=== PATIENT | female | born 1945 | race Caucasian/White ===

== ENCOUNTER 2016-09-18 12:41 | Inpatient (IN) | payer MEDICARE ==
[~2016-09-18] VITALS: Ht 157.5 cm; Wt 88.9 kg
[~2016-09-18 12:41] MED LIST: CIPROFLOXACIN500 MG PO; DECONGESTANT30 MG PO; FENOFIBRATE160 MG PO; FLAGYL500 MG PO; MIRALAX17 GM PO; MOTRIN400 MG PO; NICOTINE PATCH1 EAC1 TD; NORCO 5-325 TA1 EACH PO; ORALONE5 GM DT; PROAIR HFA8.5 GM INH; VITAMIN D50000 UNIT PO; ZOLPIDEM TARTRA10 MG PO
[2016-09-26] MEDS ORDERED: METAMUCIL PACK3.4 GM PO (15:12)
[2016-10-03] MEDS ORDERED: ESZOPICLONE3 MG PO (12:13)
[2016-10-03] MEDS ORDERED: MIRALAX17 GM PO (12:13)
[2016-10-03] MEDS ORDERED: ALLERGY4 MG PO (12:14)
[2016-10-04] MEDS ORDERED: FLONASE ALLERG9.9 ML INH (06:01)
--- NOTE | 2016-10-04 10:15 | NUR ---
MET WITH PT'S DAUGHTER DANIELLE. SHE SEEMED COMFORTABLE, PATIENTLY WAITING. SHE HAD NO QUESTIONS, MENTIONED THAT SHE IS TO START RN PROGRAM THIS FALL. WILL CONTINUE TO FOLLOW
--- NOTE | 2016-10-04 10:30 | NUR ---
PT TO FLOOR. SPINAL LEVEL L1. LEWIS IN PLACE DRAINING CLEAR YELLOW URINE. VAG PACK IN PLACE WITH HERBERT PAD. SCANT DRAINAGE NOTED. CONT PULSE OX PLACED. PT AWAKE AND ALERT. ORIENTED TO ROOM.
--- NOTE | 2016-10-04 11:16 | NUR ---
10/04/16 1116 Abi Ellis 0931 PATIENT ARRIVES TO PACU UNRESPONSIVE, ORAL AND NASAL AIRWAYS IN PLACE. MASK AT 10 LITERS. 0940 PATIENT MOVING ARMS, BUT NOT PURPOSEFULLY, DOES NOT OPEN EYES TO VERBAL OR TACTILE STIMULI. 0948 OXYGEN DECREASED TO 6 LITERS, ORAL AIRWAY REMOVED. 0949 PATIENT SHAKES HEAD NO TO NAUSEA OR PAINFUL STIMULI.
--- NOTE | 2016-10-04 11:35 | NUR ---
PT AWAKE AND ALERT IN BED. SPINAL RESOLVING. AT L3 AT THIS TIME. PT DENIES PAIN. MINIMAL DRAINAGE ON HERBERT PAD. LEWIS DRAINING CLEAR YELLOW URINE. CONT PULSE OX IN PLACE. O2 ON AT 2 L. CALL LIGHT IN REACH. PT DENIES NEEDS.
--- NOTE | 2016-10-04 14:02 | NUR ---
PT SITTING UP IN BED EATING FRUIT AND ICED TEA. DENIES PAIN, NAUSEA. SPINAL RESOLVED. SCANT DRAINAGE NOTED ON HERBERT PAD. VAG PACK IN PLACE. CALL LIGHT IN REACH.
--- NOTE | 2016-10-04 14:29 | NUR ---
PATIENT AWAKE RESTING IN BED. STILL HAS OXYGEN ON. SHE STATED THAT SHE DID NOT NEED ANYTHING. I GOT HER A COOL CLOTH SHE WAS WARM. CALL LIGHT IS IN REACH.
--- NOTE | 2016-10-04 17:03 | NUR ---
RN TO ROOM TO CHECK ON PT. PT AWAKE AND ALERT TALKING WITH FAMILY. O2 OFF. SATS 84% PER CONT PULSE OX. PT REMINDED SHE NEEDS O2. COMPLAINS OF ITCHY NOSE, SO PULLS OUT NC. RN ENCOURAGES PT TO TRY OXYMASK. PT REFUSES. MD TO ROOM. MD TALKS WITH PT REGARDING NEED TO HAVE O2 ON, SO NEEDS TO USE OXYMASK IF NOT ABLE TO TOLERATE NC. PT TOLERATING SITTING UP WELL. FAMILY AT BEDSIDE. CALL LIGHT IN REACH.
--- NOTE | 2016-10-04 17:23 | NUR ---
PT TO FLOOR FROM SURGERY THIS AM. SPINAL RESOLVED. PT CONTINUES TO DENY PAIN. COPMLAINS OF ITCHY NOSE. PULLS NC OUT CONTINUOUSLY. SATS 84%. WITHOUT OXYGEN REFUSES OXYMASK AT THIS TIME. AWARE. TALKED WITH PT REGARDING NEED FOR O2. LEWIS IN PLACE DRAINING CLEAR YELLOW URINE. VAG PACKING IN PLACE WITH HERBERT PAD. SMALL AMOUNT OF DRAINAGE NOTED ON PAD. URINE OUTPUT LOW. AWARE. TO CONTINUE TO MONITOR.
--- NOTE | 2016-10-04 20:43 | NUR ---
PT UP AND AMBULATING IN HALLS, STANDBY ASSIST, TOLERATING WELL. WALKED THE LEGNTH OF THE MS ABEBE AND THEN BACK TO ROOM. NO DIZZINESS, STEADY ON FEET, NO NAUSEA.
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
--- NOTE | 2016-10-05 00:15 | NUR ---
PT AWAKE IN BED, REPORTS NOT BEING ABLE TO SLEEP DUE TO "ALL THESE HOSPITAL NOISES," "THIS ROOM IS THE NOISEST HOSPITAL ROOM JOANNA EVER STAYED IN." PT REPORTS THE "CIRCULATION SYSTEM, BED, AND IV PUMP," ARE KEEPING HER AWAKE. SUGGESTED TURNING THE TV ON TO DROWN OUT THE OTHER NOISES, PT AGREED. NO OTHER COMPLAINTS AT THIS TIME. PT PLEASENT. CONTINUES TO DENY PAIN.
--- NOTE | 2016-10-05 02:48 | NUR ---
PT RESTING QUIETLY.
--- NOTE | 2016-10-05 04:03 | NUR ---
PT COMPLAINED OF FEELING "STUFFED UP," AND ALSO PRURITIS. PT HAS NO REDNESS OR HIVES ON HER SKIN. LUNGS SOUND CLEAR. O2 SAT 95% ON RA. VITALS TAKEN AND ARE STABLE AT THIS TIME. PT REPORTS THAT SHE DOES HAVE "ALLERGIES," AND THAT SHE TAKES "ALLERGY MEDICINES TWICE A DAY." GAVE BENEDRYL. WILL CONTINUE TO MONITOR.
--- NOTE | 2016-10-05 05:22 | NUR ---
PT UP IN CHAIR. CONTINUES TO DENY PAIN AT THIS TIME. DC'D JOSHUA, WNL AND PT TOLERATED WELL.
--- NOTE | 2016-10-05 05:56 | NUR ---
PT DID VERY WELL OVERNIGHT. AMBULATED FULL LENGTH OF MS ABEBE AND THEN BACK TO ROOM. HAS DENIES PAIN ALL NIGHT. SPINAL IS UP AT 0757 THIS MORNING. JOSHUA BURGER'Jacki THIS MORNING, PT EDUCATED ON VOIDING TRIAL TODAY, VERBALIZES UNDERSTANDING. HERBERT PAD HAS HAD SCANT AMOUNT OF SANGUANOUS DRAINAGE. PT RECIEVED BENEDRYL X1 FOR PRURITIS, WHICH HELPED WITH HER ICHING. VITALS STABLE. RIGHT ARM RESTRICTED. TOLERATING REGULAR DIET WELL.
--- NOTE | 2016-10-05 07:59 | NUR ---
BEDSEIDE REPORT RECEIVED FROM SUSSY. PATIENT RESTING IN BED. NO CAOMPLAINTS AT THIS TIME. PATIENT EDUCATED ABOUT VOID TRIAL AFTER LEWIS WAS D/C. NO APPARENT DISTRESS NOTED.
--- NOTE | 2016-10-05 09:39 | NUR ---
PT VOIDED 100ML, WITH 5ML SHOWING ON PVR. NO COMPLAINTS OF PAIN.
--- NOTE | 2016-10-05 11:41 | NUR ---
PT C/O ITCHINESS. PRN IV BENADRYL GIVEN. PT HAS LUNCH, AND IS EATING. VOIDED FOR 300ML, PVR FOR 72ML.
--- NOTE | 2016-10-05 11:54 | NUR ---
SPOKE WITH PATIENT AND GUSTAVO IN ROOM. PATIENT ORIENTED, IS INDEPENDENT AT HOME ALONE. HAS STEPS WITH RAIL INTO HOUSE. NO ISSUES AMBULATING IN ROOM. GUSTAVO WILL BE STAYING THE WEEK WITH HER AND DAUGHTER IS CLOSE BY ALSO. SHE KNOWS NO BARRIERS TO RETURNING HOME AT THIS TIME.
--- NOTE | 2016-10-05 12:01 | NUR ---
PT FRIENDLY, WELCOMED ME INTO HER ROOM. SHE IS ALERT, ORIENTED AND STATED THAT SHE THINKS THAT SHE IS "DOING VERY WELL". POSSIBLE DC TODAY. PT HAD A VISITOR, AND MENTIONED THAT PAIN RIGHT NOW IN NOT AN ISSUE. PT DECLINED PRAYER, BUT THANKED ME FOR VISITING. WILL FOLLOW NEEDED
[2016-10-05] MEDS ORDERED: NORCO 5-325 TA1 EACH PO ×2 (13:06→13:22)
[2016-10-05] MEDS ORDERED: MOTRIN IB200 MG PO (13:08)
[2016-10-05] MEDS ORDERED: IBUPROFEN800 MG PO (13:22)
[2016-10-05] MEDS ORDERED: KONDREMUL2.5 ML/5 M PO (13:23)
[2016-10-05] MEDS ORDERED: SENNA-S TABLET1 EACH PO (13:23)
--- NOTE | 2016-10-05 13:53 | NUR ---
PT DISCHARGE VITALS AND DISCHARGE TEACHING COMPLETE. TEACHING RE: MEDICATION, ACTIVITY, PROCEDURE DONE. PT VERBALIZED UNDERSTANDING.
--- NOTE | 2016-10-05 14:10 | NUR ---
MED REC COMPLETE--PER PATIENT
== END 2016-10-05 14:10 | disposition home or self-care (01) | DRG 748 ==
LOC: DSVR 10-04 05:50 → MS 10-04 06:45
PROVIDERS: ADMIT Obstetrics & Gynecology
PROC: 0TSD0ZZ Reposition Urethra, Open Approach (ICD-10-PCS; 2016-10-04)
PROC: 0TJB8ZZ Inspection of Bladder, Via Natural or Artificial Opening Endoscopic (ICD-10-PCS; 2016-10-04)
PROC: 0JUC07Z Supplement of Pelvic Region Subcutaneous Tissue and Fascia with Autologous Tissue Substitute, Open Approach (ICD-10-PCS; principal; 2016-10-04 06:45)
PROC: 0JUC0KZ Supplement of Pelvic Region Subcutaneous Tissue and Fascia with Nonautologous Tissue Substitute, Open Approach (ICD-10-PCS; 2016-10-04 06:45)
DX: N81.11 Cystocele, midline (principal); N81.6 Rectocele; N39.3 Stress incontinence (female) (male); E78.5 Hyperlipidemia, unspecified; E66.01 Morbid (severe) obesity due to excess calories; D64.9 Anemia, unspecified; L29.9 Pruritus, unspecified; Z88.8 Allergy status to other drugs, medicaments and biological substances; Z88.1 Allergy status to other antibiotic agents; Z68.35 Body mass index [BMI] 35.0-35.9, adult; Z87.891 Personal history of nicotine dependence; Z85.3 Personal history of malignant neoplasm of breast; Z79.1 Long term (current) use of non-steroidal anti-inflammatories (NSAID); Z79.899 Other long term (current) drug therapy
CPT/HCPCS: 00860; 36415; 51798; 80048; 85025; C1762; C1771; C2631; J0690; J1100; J1200; J1644; J1885; J2250; J2270; J2274; J2300; J2405; J2704; J2765; J3010; J7120

== ENCOUNTER 2017-01-05 06:45 | Day surgery (SDC) | payer MEDICARE ==
[~2017-01-05] VITALS: Ht 157.5 cm; Wt 88.9 kg
[~2017-01-05 06:45] MED LIST changes: +ALLERGY4 MG PO; +ESZOPICLONE3 MG PO; +FLONASE ALLERG9.9 ML INH; +IBUPROFEN800 MG PO; +KONDREMUL2.5 ML/5 M PO; +METAMUCIL PACK3.4 GM PO; +MOTRIN IB200 MG PO; +SENNA-S TABLET1 EACH PO
--- NOTE | 2017-01-05 11:48 | NUR ---
[facility]17 [facility] REMOV[facility]. PT CONTINUES TO DENIE ANY PAIN.
--- NOTE | 2017-01-05 14:26 | NUR ---
PT NORISATING, APPROPRIATELY DEALING WITH EMERGENCY SURGERY THAT HAS BUMPED HER BACK. I FOUND HER TO BE PLEASANT, ALERT AND ORIENTED. SHE REQUESTED PRAYER, WILL FOLLOW NEEDED
--- NOTE | 2017-01-14 20:42 | OR ---
[facility] [address] [place], [place] [address] Signed DATE OF PROCEDURE: 01/05/17 PREOPERATIVE DIAGNOSIS: Thickened endometrial stripe. POSTOPERATIVE DIAGNOSIS Thickened endometrial stripe with endometrial polyp. PROCEDURE: Hysteroscopy, D and C. ANESTHESIA: MAC. ESTIMATED BLOOD LOSS: Minimal. DRAINS: None. INDICATIONS AND FINDINGS The patient is a 71-year-old female, 3, para 3, who has been having no bleeding, but during the course of a workup for an abdominal wall hernia she was found to have a thickened endometrial stripe. EMB was not possible in the office. Because of the thickened stripe, it was felt that further evaluation was necessary. At the time of surgery, exam under anesthesia revealed a normal-size uterus. The cavity sounded to 8 cm. The cavity was completely atrophic except for a large single polyp. DESCRIPTION OF PROCEDURE The patient was prepped and draped in the dorsal lithotomy position. A weighted speculum was placed. The anterior lip of the cervix was visualized and grasped with a single-tooth tenaculum. The cavity was then sounded to 8 cm. The endocervical canal was then dilated to an 8 dilator. The MyoSure device was placed with saline as the medium. The cavity was evaluated and the polyp identified. The MyoSure LITE was then introduced and the polyp mostly excised; however, at that point, the MyoSure LIT E began malfunctioning and the instrument was replaced and the remainder of the polyp removed. The rest of the cavity was completely atrophic. Following this, the procedure was terminated. The tenaculum was removed and there was no evidence of ongoing bleeding from the tenaculum site. The speculum was then removed. The patient was taken to the recovery room in good condition. Sofiya Meade MD Electronically Signed By: SOFIYA MEADE MD 01/14/172 PATIENT NAME: DANA CUELLAR OPERATIVE REPORT DATE OF : 47 PHYSICIAN: SOFIYA MEADE MD REPORT #: [id number] REPORT IS CONFIDENTIAL AND NOT TO BE RELEASED WITHOUT AUTHORIZATION [facility] [address] [place] [address] [place], [place] [address] Signed ELAINE/Wagner /[id number] cc: MD Corey Arellano MD Electronically Signed By: SOFIYA MEADE MD 01/14/172041 PATIENT NAME: DANA CUELLAR INOCENTE OPERATIVE REPORT DATE OF : 47 PHYSICIAN: SOFIYA MEADE MD REPORT #: [id number] REPORT IS CONFIDENTIAL AND NOT TO BE RELEASED WITHOUT AUTHORIZATION
== END 2017-01-05 12:18 | disposition home or self-care (01) ==
LOC: DS 06:45
PROVIDERS: Obstetrics & Gynecology
PROC: 0UDB8ZX Extraction of Endometrium, Via Natural or Artificial Opening Endoscopic, Diagnostic (ICD-10-PCS; principal; 2017-01-05 08:15)
DX: N84.0 Polyp of corpus uteri (principal); G47.33 Obstructive sleep apnea (adult) (pediatric); E78.5 Hyperlipidemia, unspecified; K21.9 Gastro-esophageal reflux disease without esophagitis; E66.9 Obesity, unspecified; Z68.35 Body mass index [BMI] 35.0-35.9, adult; Z90.49 Acquired absence of other specified parts of digestive tract; Z85.3 Personal history of malignant neoplasm of breast; Z90.11 Acquired absence of right breast and nipple; Z87.891 Personal history of nicotine dependence; Z98.890 Other specified postprocedural states; Z88.1 Allergy status to other antibiotic agents; Z79.899 Other long term (current) drug therapy
CPT/HCPCS: 00952; 88305; J1100; J1885; J2250; J2405; J2704; J2765; J3010; J7120

== ENCOUNTER 2017-06-05 10:23 | Observation (INO) | payer MEDICARE ==
[~2017-06-05] VITALS: Ht 157.5 cm; Wt 87.5 kg
[~2017-06-05 10:23] MED LIST changes: -ESZOPICLONE3 MG PO; -FENOFIBRATE160 MG PO
[2017-06-06] MEDS ORDERED: PROAIR HFA8.5 GM INH (15:32)
--- NOTE | 2017-06-13 11:29 | NUR ---
06/13/17 1129 Yola Jovel 1120 PT ARRIVED IN PACU VERY SLEEPY. ICE TO ABD. LEWIS CATHETER IN PLACE ON ARRIVAL.
--- NOTE | 2017-06-13 12:50 | NUR ---
PT TO FLOOR VIA STRETCHER WITH SENAIT GONZALEZ. PT AWAKE AND SITTING UP IN BED. DENIES PAIN OR NAUSEA. VS STABLE. EATING CRACKERS AND SIPPING ON ICE WATER. ADVISED TO GO SLOW. IVF AND PULSE OX HOOKED UP. LEWIS DRAINING LIGHT YELLOW URINE.
--- NOTE | 2017-06-13 13:49 | NUR ---
PATIENT RELAXING IN BED, DAUGHTER IN ROOM. VITALS DONE. PATIENT IS COLD, REFUSED WARM BLANKET-TURNED HEAT UP. CALL LIGHT IN REACH.
--- NOTE | 2017-06-13 14:00 | NUR ---
PT IN BED, DOING WELL. ADMINISTERED PRN PAIN MEDICATION FOR 4/10 PAIN. WILL TRY AMBULATING WHEN IT KICKS IN. DRESSING CDI. VS STABLE. TALKED WITH DAUGHTER AND PT FOR AWHILE, VERY PLEASANT.
--- NOTE | 2017-06-13 15:15 | NUR ---
PATIENT 1 PERSON ASSIST WALKING IN ROOM WITH SENAIT REYES. PATIENT SITTING ON EDGE OF BED FOR CATH REMOVAL. ICE PACK REFILLED AND EXTRA PILLOW GIVEN FOR BEHIND BACK. CALL LIGHT IN REACH.
--- NOTE | 2017-06-13 15:59 | NUR ---
WALKED PT AROUND IN ROOM. REMOVED LEWIS. PT TRIED TO PEE SHE STATED SHE FELT THE URGE. WAS UNABLE. PT BACK TO BED WITH MINIMAL PAIN.
--- NOTE | 2017-06-13 18:09 | NUR ---
PT SITTING UP IN BED EATING DINNER. STATES SHE FEELS REALLY GOOD RIGHT NOW. DENIES NAUSEA. PAIN WELL CONTROLLED. WILL GET UP TO TRY PEEING AFTER DINNER.
--- NOTE | 2017-06-13 18:38 | NUR ---
PT DOING WELL AFTER SURGERY. DRESSING CDI. LEWIS REMOVED AND URINATING WELL. PAIN WELL CONTROLLED WITH MINIMAL NORCO. ONE DOSE GIVEN. D5LR @ 75. ATE DINNER, NO NAUSEA.
--- NOTE | 2017-06-13 20:54 | NUR ---
PT LAYING IN BED AWAKE, WATCHING TV WHEN ENTERING ROOM. RATES PAIN AT 0/10 WHEN LAYING STILL, BUT ABOUT A 7-8/10 WHEN MOVING AROUND, GAVE NORCO FOR PAIN. GAVE FRESH ICE WATER. NEW ICE PACK. DRESSING TO ABD IS CLEAN DRY AND INTACT. PT HAS NO COMPLAINTS AT THIS TIME. NO NAUSEA. CALL LIGHT IN REACH.
--- NOTE | 2017-06-13 21:00 | NUR ---
TOOK PT TO BR AND DID VITALS
--- NOTE | 2017-06-13 22:41 | NUR ---
pt appeared to be sleeping when entering the room. o2 sat dropping into mid 80's on ra, placed pt on 1L via nc, o2 now in the mid 90's.
--- NOTE | 2017-06-13 22:50 | NUR ---
pt up to bathroom to void, tolerated ambulating well once she got up out of bed. needed some assistance sitting up in bed. pt rates pain at a 0/10 when "not moving." and a 3/10 when getting up out of bed. pt back in bed. no further needs. call light in reach. scd's in place.
--- NOTE | 2017-06-14 00:01 | NUR ---
pt appear to be sleeping.
--- NOTE | 2017-06-14 01:12 | NUR ---
PT ASLEEP IN BED. WILL CHAECK ON LATER
--- NOTE | 2017-06-14 01:55 | NUR ---
PT UP TO BATHROOM TO VOID. RATES PAIN AT 0/10 WHEN NOT MOVING, BUT AT A 7/10 WHEN MOVING. GAVE NORCO 10MG FOR PAIN. FRESH ICE WATER. NO FURTHER NEEDS. CALL LIGHT IN REACH.
--- NOTE | 2017-06-14 04:26 | NUR ---
up to brp, voided, back to bed. O2 @1L nc. tolerated well
--- NOTE | 2017-06-14 05:46 | NUR ---
VITALS AND I AND O DONE PT IS DOING WELL
--- NOTE | 2017-06-14 06:29 | NUR ---
PT APPEARS TO BE SLEEPING. EYES ARE CLOSED, RR WNL AND UNLABORED. LIGHTS AND TV OFF IN ROOM.
--- NOTE | 2017-06-14 07:33 | NUR ---
RECIEVED REPORT FROM FISHER DIP NET NURSE. PATIENT RESTING IN BED. IVF TURNED OFF. PATIENT IS VOIDING WELL. DENIES NEEDS, CALL LIGHT IN REACH.
--- NOTE | 2017-06-14 07:50 | NUR ---
PATIENT SITTING IN CHAIR EATING PUDDING. FRESH ICE IN PACK AND FOR WATER. SENAIT BORJAS IN ROOM. CALL LIGHT IN REACH.
--- NOTE | 2017-06-14 07:53 | NUR ---
PATIENT C/O 10/16 PAIN IN HER ABDOMEN BUT ONLY WHEN SHE MOVES. SHE IS IN NO PAIN IF SHE IS NOT MOVING. 1 TAB NORCO ADMINISTERED. PATIENT SITTING UP IN CHAIR WAITING FOR BREAKFAST. GAVE HER SOME PUDDING TO PREVENT NAUSEA WITH PAIN PILL. O2 SAT 97% ON RA. PATIENT DENIES FURTHER NEEDS. CALL LIGHT IN REACH.
[2017-06-14] MEDS ORDERED: FENOFIBRATE160 MG PO (08:50)
[2017-06-14] MEDS ORDERED: ESZOPICLONE3 MG PO (08:50)
[2017-06-14] MEDS ORDERED: IBUPROFEN800 MG PO (08:50)
[2017-06-14] MEDS ORDERED: BENADRYL25 MG PO (08:51)
[2017-06-14] MEDS ORDERED: VITAMIN D50000 UNI1 PO (08:51)
[2017-06-14] MEDS ORDERED: ZYRTEC10 MG PO (08:51)
[2017-06-14] MEDS ORDERED: VENTOLIN HFA18 GM (08:52)
[2017-06-14] MEDS ORDERED: NORCO 10-325 T1 EACH PO ×2 (08:58→09:07)
[2017-06-14] MEDS ORDERED: ASPIR 8181 MG PO (09:06)
--- NOTE | 2017-06-14 09:18 | NUR ---
PT IN SHOWER.
--- NOTE | 2017-06-14 09:30 | NUR ---
PATIENT SITTING UP IN CHAIR. TOLERATED BREAKFAST WELL. ABDOMEN IS SOFT/NON-DISTENDED. STATES SHE IS PASSING FLATUS. BS ACTIVE. LUNGS ARE CLEAR. TAUGHT HER HOW TO USE INCENTIVE SPIROMETER. PATIENT DEMONSRTATED PROPER USE. CALLED DR. DUNLAP'S CELL PHONE TO ASK ABOUT AN ABDOMINAL BINDER TO SEND HOME WITH PATIENT. SHE DENIES FURTHER NEEDS. CALL LIGHT IN REACH.
--- NOTE | 2017-06-14 09:33 | NUR ---
PT DRESSED AND READY FOR DIASCHARGE. VITALS DONE, BRUSHING TEETH. ICE PACK REFILLED. CALL LIGHT IN REACH
--- NOTE | 2017-06-14 09:55 | NUR ---
PATIENT STATES HER PAIN IS MUCH BETTER AFTER THE NORCO WAS GIVEN. PHARMACIST IN TO TALK WITH PATIENT REGARDING D/C MEDS.
--- NOTE | 2017-06-14 10:30 | NUR ---
REVIEWED D/C PAPERWORK WITH PATIENT. SHE DENIES QUESTIONS AT THIS TIME.
--- NOTE | 2017-06-14 10:30 | NUR ---
STILL HAVE NOT HEARD BACK FROM DR. DUNLAP'S OFFICE. SENT PATIENT HOME WITH ABDOMINAL BINDER. TOLD HER TO CALL AND ASK BEFORE SHE WEARS IT. TAUGHT HER ABOUT ABDOMINAL SPLINTING. PATIENT THOUGHT SHE WAS GOING TO BE SENT HOME WITH A FEW PAIN PILLS TO HOLD HER OVER UNTIL SHE CAN GET TO THE PHARMACY. I DID NOT SEE AN ORDER. 1 TAB ADMINISTERED AT THIS TIME. PATIENT STATES SHE WILL BE OKAY WITHOUT THE TAKE HOME PILLS AND SHE HAS IBUPROFEN 800MG AT HOME SHE CAN TAKE FOR NOW. PATIENT RATES PAIN 5/10 WITH MOVEMENT. NO S/S OF INFECTION AT INCISION SITE. PATIENT DENIES FURTHER NEEDS.
--- NOTE | 2017-06-15 08:29 | OR ---
[facility] [address] [place], [place] [address] Signed DATE OF OPERATION: 06/13/2017 SURGEON: Maye Dunlap MD PREOPERATIVE DIAGNOSIS: Reducible infraumbilical midline ventral incisional hernia (5 x 5 cm). POSTOPERATIVE DIAGNOSIS: Reducible infraumbilical midline ventral incisional hernia (5 x 5 cm). PROCEDURE: Open ventral incisional herniorrhaphy with intraabdominal Ventrio mesh (11 x 14 cm). ESTIMATED BLOOD LOSS: None. INDICATIONS: Ricarda is a 71-year-old obese female, who smokes heavily in the past. I met her in 2012. We had to convert her from a laparoscopic to an open appendectomy through a lower midline incision. She dehisced after the surgery and had to close that primarily for a 2nd time. I had warned Ricarda and her family she was a high risk for an incisional hernia. In due time then she did develop her incisional hernia. She also had a large uterine polyp removed and she had bilateral iliac artery stents placed and said her legs feel much better. She had had a CT scan of abdomen and pelvis performed that showed fat and some bowel up in the hernia. In the office because of her obesity, it was hard to find the exact fascial edges. We thought we could reduce the tissue, but again it was unclear from a definitive standpoint. I explained to Ricarda, we needed to fix that hernia. I gave her a booklet on hernias and we looked that together in detail. She understands the nature of an incisional hernia along with the difference between a primary suture repair and a mesh repair. She also understands the expected intraop and postop course. I also reviewed the risks including, but not limited to bleeding, infection, scarring, change in contour of the skin, damage to bowel, infection of mesh, requiring removal recurrent hernias and chronic pain. She had expressed understanding and wished to proceed. PROCEDURE NOTE: I met with Ricarda and her daughter in our preop area. We all identified her hernia and marked that appropriately. After this, Ricarda was taken in the operating room and placed in the supine position under general endotracheal tube anesthesia. She was given preoperative antibiotics along with subcutaneous heparin. SCDs were utilized. A De La Cruz Electronically Signed By: MAYE DUNLAP MD 06/15/17 0829 PATIENT NAME: RICARDA CUELLAR OPERATIVE REPORT DATE OF : 47 REPORT #: [id number] PHYSICIAN: MAYE DUNLAP MD PCP: YOVANY BURNS MD REPORT IS CONFIDENTIAL AND NOT TO BE RELEASED WITHOUT AUTHORIZATION [facility] [address] [place], [place] [address] Signed catheter was inserted with return of clear yellow urine. After this, she was prepped and draped in the usual sterile fashion. We excised her previous midline scar and discarded the thin skin overlying that area. We carried this down through the tissues with the help of the cautery and into the hernia sac. The right side of the fascial defect was a nice clear edge, but on the left side, which she herniated the omentum, it came up over the abdominal wall musculature and then ran along the top of the muscle lateral to the left side. We created two pockets in this way. Consequently, this was the reason we were having trouble feeling the exact fascial edges. We reduced that omentum with the help of cautery. We then used #1 Prolene suture to close those two defects to bring that skin back down to that abdominal wall in order to close the space. The more superior pocket was small may be 3 or 4 cm wide and 3 or 4 cm deep. The other was larger, probably 6 x 6 cm. This gave us a nice fascial edges on both sides. We measured out the fascial defect and it was 5 x 5 cm. We therefore chose our 11 x 14 cm oval shaped Ventrio mesh and we replaced that inside the abdomen without any difficulty whatsoever. Underneath that was all her omentum and indeed the omentum of course was her bowel. We brought the fascial edges back together with interrupted #2 [id number] Prolene sutures. Several passes of the suture went through the top layer of the mesh to help hold it in place and keep it centered under the repair. We then infiltrated the abdominal wall with local anesthetic. The wound was irrigated and suctioned out until clear. We closed the dermis with interrupted 0 Monocryl sutures. Skin edges were reapproximated with a running 6-0 fast absorbing plain gut suture. Dry gauze and tape were then applied. Ricarda was awakened from anesthesia, extubated in the OR, and taken to recovery room in stable condition. Maye Dunlap MD ALB/MODL /[id number] cc: MD Maye Patton MD Patricia J Winn, MD Linda Harries, PA Electronically Signed By: MAYE DUNLAP MD 06/15/17 0829 PATIENT NAME: RICARDA CUELLAR OPERATIVE REPORT DATE OF : 47 REPORT #: [id number] PHYSICIAN: MAYE DUNLAP MD PCP: YOVANY BURNS MD REPORT IS CONFIDENTIAL AND NOT TO BE RELEASED WITHOUT AUTHORIZATION [facility] [address] [place], [place] [address] Signed Copies: YOVANY BURNS MD, ANDREW L MD WINN, PATRICIA J MD HARRIES, LINDA PA ~ Electronically Signed By: MAYE DUNLAP MD 06/15/17 0829 PATIENT NAME: RICARDA CUELLAR OPERATIVE REPORT DATE OF : 47 REPORT #: [id number] PHYSICIAN: MAYE DUNLAP MD PCP: YOVANY BURNS MD REPORT IS CONFIDENTIAL AND NOT TO BE RELEASED WITHOUT AUTHORIZATION
== END 2017-06-14 10:48 | disposition home or self-care (01) ==
LOC: EDSTATUS 06-13 08:45 → DS 06-13 08:45 → DSVR 06-13 09:00 → MS 06-13 09:45 → DSVR 06-13 11:40 → MS 06-13 12:15
PROVIDERS: ADMIT Colon & Rectal Surgery
PROC: 0WUF0JZ Supplement Abdominal Wall with Synthetic Substitute, Open Approach (ICD-10-PCS; principal; 2017-06-13 09:45)
DX: K43.2 Incisional hernia without obstruction or gangrene (principal); E66.9 Obesity, unspecified; G89.29 Other chronic pain; I10 Essential (primary) hypertension; J44.9 Chronic obstructive pulmonary disease, unspecified; E78.5 Hyperlipidemia, unspecified; E55.9 Vitamin D deficiency, unspecified; J30.9 Allergic rhinitis, unspecified; F32.9 Major depressive disorder, single episode, unspecified; F41.9 Anxiety disorder, unspecified; Z88.1 Allergy status to other antibiotic agents; Z68.35 Body mass index [BMI] 35.0-35.9, adult; Z87.891 Personal history of nicotine dependence; Z85.3 Personal history of malignant neoplasm of breast; Z79.2 Long term (current) use of antibiotics; Z79.1 Long term (current) use of non-steroidal anti-inflammatories (NSAID); Z79.02 Long term (current) use of antithrombotics/antiplatelets; Z79.82 Long term (current) use of aspirin; Z79.899 Other long term (current) drug therapy; Z88.8 Allergy status to other drugs, medicaments and biological substances; Z95.828 Presence of other vascular implants and grafts
CPT/HCPCS: 00752; 96372; C1781; G0378; J0330; J0690; J1100; J1644; J1885; J2250; J2405; J2704; J2765; J3010; J7120

== ENCOUNTER 2017-10-02 18:02 | Emergency (ER) | payer MEDICARE ==
[~2017-10-02] VITALS: Ht 157.5 cm; Wt 87.5 kg
[~2017-10-02 18:02] MED LIST changes: +ASPIR 8181 MG PO; +BENADRYL25 MG PO; +ESZOPICLONE3 MG PO; +FENOFIBRATE160 MG PO; +NORCO 10-325 T1 EACH PO; +VENTOLIN HFA18 GM; +VITAMIN D50000 UNI1 PO; +ZYRTEC10 MG PO
== END 2017-10-02 20:14 | disposition home or self-care (01) ==
LOC: ED 18:02
PROC: 0HQGXZZ Repair Left Hand Skin, External Approach (ICD-10-PCS; principal; 2017-10-02)
DX: S61.012A Laceration without foreign body of left thumb without damage to nail, initial encounter (principal); Z88.1 Allergy status to other antibiotic agents; Z88.8 Allergy status to other drugs, medicaments and biological substances; Z79.899 Other long term (current) drug therapy; Z79.82 Long term (current) use of aspirin; Z23 Encounter for immunization; W25.XXXA Contact with sharp glass, initial encounter
CPT/HCPCS: 12001; 90471; 90715; 99282

== ENCOUNTER 2019-04-12 09:57 | Emergency (ER) | payer OTHER ==
[~2019-04-12] VITALS: Ht 157.5 cm; Wt 87.5 kg
--- OUTSIDE RECORDS SUMMARY | ~2019-04-12 | XMS | Encounter Summary ---
Demographics + + + | Address | [address] | | | [place] [address] | + + + | Home Phone | | + + + | Preferred Language | Unknown | + + + | Marital Status | | + + + | Sikhism Affiliation | Unknown | + + + | Race | Unknown | + + + | Ethnic Group | Unknown | + + + Author + + + | Author | [facility] | | | and [place]ieranana | + + + | Organization | [facility] | | | and [place] | + + + | Address | Unknown | + + + | Phone | Unavailable | + + + Support + + + + + | Name | Relationship | Address | Phone | + + + + + | Bobbi Ty | [address] | [place] | | | | | [address] | | + + + + + Care Team Providers + +------+ + | Care Leisure Studies Professor Name | Role | Phone | + +------+ + | Mani Amado | PCP | | | MD | | | + +------+ + Reason for Visit + + + | Reason | Comments | + + + | Pre-Procedure | IR instructions 02/23/17 | + + + Encounter Details +--------+ + + + + | Date | Type | Department | Care Team | Description | +--------+ + + + + | 02/20/ | Telephone | [facility] | Chris Pugh | Pre-Procedure (IR | | 2017 | | SURGERY [address] | MD Bronson, FACS [address] | [address] | | | | [place], [place] | [facility] | 02/23/17) | | | | [address] | [place] [address] | | | | | [phone] | [phone] | | | | | | | | +--------+ + + + + Social History + + + +--------+ + | Tobacco Use | Types | Packs/Day | Years | Date | | | | | Used | | + + + +--------+ + | Former Smoker | Cigarettes | 1 | 52 | 04/09/1962 - | | | | | | 11/15/2014 | + + + +--------+ + + +---+---+---+ | Smokeless Tobacco: | | | | | Never Used | | | | + +---+---+---+ + + +---------+ + | Alcohol Use | Drinks/Week | oz/Week | Comments | + + +---------+ + | Yes | | | 1 drink per day | + + +---------+ + + + + | Sex Assigned at | Date Recorded | | | | + + + | Not on file | | + + + + + + + | Job Start Date | Occupation | Industry | + + + + | Not on file | Not on file | Not on file | + + + + + + + + | Travel History | Travel Start | Travel End | + + + + + + | No recent travel history available. | + + documented as of this encounter Plan of Treatment Not on filedocumented as of this encounter Visit Diagnoses Not on filedocumented in this encounter"
--- OUTSIDE RECORDS SUMMARY | ~2019-04-12 | XMS | Encounter Summary ---
Demographics + + + | Address | [address] | | | [place] [address] | + + + | Home Phone | | + + + | Preferred Language | Unknown | + + + | Marital Status | | + + + | Muslim Affiliation | Unknown | + + + | Race | Unknown | + + + | Ethnic Group | Unknown | + + + Author + + + | Author | [facility] | | | and [place] | + + + | Organization | [facility] | | | and [place] | + + + | Address | Unknown | + + + | Phone | Unavailable | + + + Support + + + + + | Name | Relationship | Address | Phone | + + + + + | Bobbi Ty | [address] | [place] | | | | | [address] | | + + + + + Care Team Providers + +------+ + | Care Foreign Food Specialty Cook Name | Role | Phone | + +------+ + PCP | Unavailable | + +------+ + Encounter Details +--------+ + + + + | Date | Type | Department | Care Team | Description | +--------+ + + + + | 12/18/ | [facility] | [facility] | [place], | | | 2005 - | Encounter | [facility] | Julio Huber MD [address] | | | | CENTER [address] | [place] | | | 03/18/ | | [place] | [place] [address] | | | 2005 | | [address] | [phone] | | | | | [phone] | | | +--------+ + + + + Social History + +-------+ +--------+------+ | Tobacco Use | Types | Packs/Day | Years | Date | | | | | Used | | + +-------+ +--------+------+ | Never Assessed | | | | | + +-------+ +--------+------+ + + + | Sex Assigned at [...]
--- OUTSIDE RECORDS SUMMARY | ~2019-04-12 | XMS | Encounter Summary ---
Demographics + + + | Address | [address] | | | [place] [address] | + + + | Home Phone | | + + + | Preferred Language | Unknown | + + + | Marital Status | | + + + | Advent Affiliation | Unknown | + + + | Race | Unknown | + + + | Ethnic Group | Unknown | + + + Author + + + | Author | [facility] | | | and Kieranana | + + + | Organization | [facility] | | | and [place] | + + + | Address | Unknown | + + + | Phone | Unavailable | + + + Support + + + + + | Name | Relationship | Address | Phone | + + + + + | Bobbi Ty | [address] | [place] | | | | | [address] | | + + + + + Care Team Providers + +------+ + | Care Hangar Attendant Name | Role | Phone | + [...] + | 02/20/ | Telephone | [facility] | Chris Pugh | Pre-Procedure (IR | | 2017 | | SURGERY [address] | MD Bronson, FACS [address] | instructions | | | | [address] [place], [place] | [address] [facility] | 02/23/17) | | | | [address] | [place] [address] | | | | | [phone] | [phone] | | | | | | | [...]
--- OUTSIDE RECORDS SUMMARY | ~2019-04-12 | XMS | Clinical Summary ---
Demographics + + + | Address | [address] | | | [place] [address] | + + + | Home Phone | | + + + | Preferred Language | Unknown | + + + | Marital Status | | + + + | Jain Affiliation | Unknown | + + + | Race | Unknown | + + + | Ethnic Group | Unknown | + + + Author + + + | Author | [facility] | | | and [place]ier[place] | + + + | Organization | [facility] | | | and [place] | + + + | Address | Unknown | + + + | Phone | Unavailable | + + + Support + + + + + | Name | Relationship | Address | Phone | + + + + + | Bobbi Ty | [address] | [place] | | | | | [address] | | + + + + + Care Team Providers + +------+ + | Care Mica Miner Blasting Name | Role | Phone | + +------+ + | Mani Amado PCP | | | MD | | | + +------+ + Allergies + + + +--------+ + | Active Allergy | Reactions | Severity | Noted | Comments | | | | | Date | | + + + +--------+ + | Doxycycline | Diarrhea, Nausea And | Low | | | | | Vomiting | | | | + + + +--------+ + | Ofloxacin | | | | Eyes infected and | | | | | | red. | + + + +--------+ + | Adhesive & Tape | | | | Redness, rash, raw | + + + +--------+ + Medications + + + +---------+------+------+-------+ | Medication | Sig | Dispensed | Refills | Star | End | Statu | | | | | | t | Date | s | | | | | | Date | | | + + + +---------+------+------+-------+ | eszopiclone | Take 3 mg by mouth | | 0 | | | Activ | | (ESZOPICLONE) 3 MG | nightly. | | | | | e | | TABS | | | | | | | + + + +---------+------+------+-------+ | fenofibrate | Take 160 mg by mouth | | 0 | | | Activ | | (LOFIBRA, TRIGLIDE) | Daily. | | | | | e | | 160 mg tablet | | | | | | | + + + +---------+------+------+-------+ | fluticasone | 2 sprays by Nasal | | 0 | | | Activ | | (FLONASE) 50 | route as needed. | | | | | e | | mcg/nasal spray | | | | | | | + + + +---------+------+------+-------+ | fexofenadine | Take 180 mg by mouth | | 0 | | | Activ | | (FRANCHESKA) 180 mg | as needed. | | | | | e | | tablet | | | | | | | + + + +---------+------+------+-------+ | Azelastine HCl | 2 sprays by Nasal | | 0 | | | Activ | | (ASTEPRO) 0.15 % | route as needed. Use | | | | | e | | nasal spray | in each nostril as | | | | | | | | directed. | | | | | | + + + +---------+------+------+-------+ | albuterol (PROAIR | Inhale 2 puffs into | | 0 | | | Activ | | HFA) 90 mcg/puff | the lungs as needed | | | | | e | | inhaler | for Wheezing. | | | | | | + + + +---------+------+------+-------+ | ergocalciferol | Take 50,000 Units by | | 0 | | | Activ | | (VITAMIN D-2) 50,000 | mouth Once a week. | | | | | e | | units capsule | | | | | | | + + + +---------+------+------+-------+ | clopidogrel | Take 75 mg by mouth | | 0 | 11/1 | | Activ | | (PLAVIX) 75 mg | Daily. | | | 8/20 | | e | | tablet | | | | 17 | | | + + + +---------+------+------+-------+ | ibuprofen | Take 800 mg by mouth | | 0 | | | Activ | | (ADVIL,MOTRIN) 800 | every 6 hours as | | | | | e | | MG tablet | needed for Pain. | | | | | | + + + +---------+------+------+-------+ | cetirizine | Take 10 mg by mouth | | 0 | | | Activ | | (ZYRTEC) 10 mg | Daily. | | | | | e | | tablet | | | | | | | + + + +---------+------+------+-------+ Active Problems + + + | Problem | Noted Date | + + + | Abnormal weight loss | | + + + | Allergic rhinitis due to pollen | | + + + | Infiltrating ductal carcinoma of breast | | + + + | COPD (chronic obstructive pulmonary disease) | | + + + | Cystocele with rectocele | | + + + + + | Overview: Cystocele repair with dermis, rectocele repair with | | dermis, obturator sling procedure, cystoscopy. 10/04/2016 - | | [place] | + + + +---+ | Depression with anxiety | | + +---+ | Type 2 diabetes mellitus without complication | | + +---+ | Dermatitis, eczematoid | | + +---+ | Generalized anxiety disorder | | + +---+ | Hyperlipoproteinemia type IIb | | + +---+ | Lumbar spondylosis | | + +---+ | Primary localized osteoarthritis of hip | | + +---+ | Persistent insomnia | | + +---+ | Rosacea | | + +---+ | Vitamin D deficiency | | + +---+ | Cataract, bilateral | | + +---+ | Hypertension | | + +---+ Family History + + +------+ + | Medical History | Relation | Name | Comments | + + +------+ + | Diabetes | Brother | | | + + +------+ + | Breast cancer | Sister | | | + + +------+ + | Diabetes | Sister | | | + + +------+ + | Ovarian cancer | Sister | | | + + +------+ + + +------+ + + | Relation | Name | Status | Comments | + +------+ + + | Brother | | | | + +------+ + + | Father | | | | | | | (Age | | | | | 91) | | + +------+ + + | Mother | | | Alcoholism | | | | (Age | | | | | 63) | | + +------+ + + | Sister | | | | + +------+ + + Social History + + + [...] recent travel history available. | + + Last Filed Vital Signs + + + + + | Vital Sign | Reading | Time Taken | Comments | + + + + + | Blood Pressure | 151/64 | 02/23/2017 3:46 PM | | | | | PST | | + + + + + | Pulse | 75 | 03/12/2017 2:15 PM | | | | | PST | | + + + + + | Temperature | 36.1 C (97 F) | 03/12/2017 2:15 PM | | | | | PST | | + + + + + | Respiratory Rate | 13 | 02/23/2017 3:46 PM | | | | | PST | | + + + + + | Oxygen Saturation | 95% | 03/12/2017 2:15 PM | | | | | PST | | + + + + + | Inhaled Oxygen | - | - | | | Concentration | | | | + + + + + | Weight | 88.7 kg (195 lb 8.8 | 03/12/2017 2:15 PM | | | | oz) | PST | | + + + + + | Height | 157.5 cm (5' 2") | 02/23/2017 9:04 AM | | | | | PST | | + + + + + | Body Mass Index | 35.77 | 02/23/2017 9:04 AM | | | | | PST | | + + + + + Plan of Treatment + + + + + | Health Maintenance | Due Date | Last Done | Comments | + + + + + | Vaccine: | | | | | Dtap/Tdap/Td (1 - | 8 | | | | Tdap) | | | | + + + + + | Vaccine: Zoster (1 | | | | | of 2) | 7 | | | + + + + + | Breast Cancer | | | | | Screening | 2 | | | + + + + + | Vaccine: | | | | | Pneumococcal 65+ (1 | 2 | | | | of 2 - PCV13) | | | | + + + + + | Vaccine: Influenza | | | | | (#1) | 9 | | | + + + + + Implants + +-------+--------+ +--------+--------+--------+ | Implanted | Type | Area | Manufacture | Device | Shelf | Model | | | | | r | | Expira | / | | | | | | Identi | tion | Serial | | | | | | fier | Date | / Lot | + +-------+--------+ +--------+--------+--------+ | Visi-Pro Balloon Expandable | Stent | Left: | EV3 - PART | | 05/05/ | [id number] | | Biliary Stent System | | Leg | OF | | 2017 | - | | Implanted: Qty: 1 on | | | [employer] - | | | 135 / | | 02/23/2017 by Nikolas Quinonez, | | | EV3 | | | /[id number] | | MD at [facility] | | | | | | 34 | | [facility] | | | | | | | + +-------+--------+ +--------+--------+--------+ | Visi-Pro Balloon Expandable | Stent | Left: | EV3 - PART | | 07/08/ | [id number] | | Bilary Stent System | | Leg | OF | | 2017 | - | | Implanted: Qty: 1 on | | | [employer] - | | | 135 / | | 02/23/2017 by Nikolas Quinonez, | | | EV3 | | | /[id number] | | MD at [facility] | | | | | | 34 | | [facility] | | | | | | | + +-------+--------+ +--------+--------+--------+ Results Not on filefrom Last 3 Months Insurance + +--------+ +--------+-------+---------+--------+ | Payer | Benefi | Subscriber | Effect | Phone | Address | Type | | | t Plan | ID | [id number] | | | | | | / | | Dates | | | | | | Group | | | | | | + +--------+ +--------+-------+---------+--------+ | [employer] | [employer] | [id number] | 12/13/19 | | | Medica | | | HEALTH | | 17-Pre | | | re | | | MDCR | | sent | | | | + +--------+ +--------+-------+---------+--------+ + +--------+ +--------+ + + | Guarantor Name | Accoun | Relation to | Date | Phone | Billing Address | | | t Type | Patient | of | | | | | | | | | | + +--------+ +--------+ + + | Ricarda Ty | Person | Self [birth year] | [address] | | | al/Fam | | 1946 | [phone] | [place] [address] | | | elizabeth | | | 8 (Home) | | + +--------+ +--------+ + + Advance Directives + + + + + | Type | Date Recorded | Patient | Explanation | | | | Livestock Commission Agent | | + + + + + | Power of | | | | | Supervisor [employer] | | | | + + + + + | Advance | 02/23/2017 | | | | Directive | 8:20 AM | | | + + + + +
--- OUTSIDE RECORDS SUMMARY | ~2019-04-12 | XMS | Encounter Summary ---
Demographics + + + | Address | [address] | | | [place] [address] | + + + | Home Phone | | + + + | Preferred Language | Unknown | + + + | Marital Status | | + + + | Hindu Affiliation | Unknown | + + + | Race | Unknown | + + + | Ethnic Group | Unknown | + + + Author + + + | Author | [facility] | | | and Kieranana | + + + | Organization | [facility] | | | and [place] | + + + | Address | Unknown | + + + | Phone | Unavailable | + + + Support + + + + + | Name | Relationship | Address | Phone | + + + + + | Bobbi Ty | [address] | [place] | | | | | [address] | | + + + + + Care Team Providers + +------+ + | Care Sound Engineer Audio Control Name | Role | Phone | + +------+ + | Mani Amado PCP | | | MD | | | + +------+ + Encounter Details +--------+ + + + + | Date | Type | Department | Care Team | Description | +--------+ + + + + | 11/13/ | Orders Only | [facility] | Chris Pugh | Atherosclerosis of | | 2017 | | SURGERY [address] | MD Bronson, FACS [address] | [place] arteries of | | | | [place], [place] | [address] [place] | extremities with | | | | [address] | [place] [address] | intermittent | | | | [phone] | [phone] | claudication, | | | | | | bilateral legs (HCC) | | | | | | (Primary Dx) | +--------+ + + + + Social [...] Not on filedocumented as of this encounter Results IR Angio Upper/Lower Extremity (02/23/2017 1:56 PM PST) + + | Specimen | + + | | + + + +--------- ------+ | Narrative | Performe d At | + +--------- ------+ | Exam: Pelvic | [facility] | | arteriogram and bilateral common iliac artery stents History: 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 Intravenous conscious | | | sedation2. Ultrasound-guided bilateral common femoral micropuncture | | | access3. Pelvic arteriogram4. Crossing of occluded left common iliac | | | artery. Kissing common iliac arterystents with post stenting balloon | | | dilatation arteriogram5. Percutaneous closure of bilateral common | | | femoral arteriotomy is utilizing 6French Angio-Seal device | | | Medications: 5 mg Versed, 300 mcg fentanyl, 150 mg Plavix. | | | Continuoushemodynamic monitoring by the sedation nurse for | | | approximately 90 minutes Fluoroscopy time: 20.3 minutes Contrast: 60 | | | cc Visipaque Fluoroscopic images: 7 Technique: Informed consent was | | | obtained. The bilateral groins were prepped anddraped sterilely and | | | local anesthesia administered. Standard micropuncturetechnique with | | | ultrasound guidance was utilized to gain access to the leftcommon | | | femoral artery. A 4 Fijian vascular sheath was placed. Using a | | | catheterand guidewire, the catheter was placed into the midportion of | | | the occluded leftcommon iliac artery. At this point, right common | | | femoral arterial access wasgained. The universal flush catheter was | | | placed at the bifurcation and roadmaptechnique performed. Using the | | | "outback "device, the final segment of occludedleft common iliac | | | artery was crossed. Guidewires were placed into the abdominalaorta. | | | Over the wires, 4 Fijian sheaths were exchanged for bilateral 6 | | | Frenchvascular sheath. On the left, an 8 mm x 57 mm balloon expandable | | | stent wasplaced and on the right and 8mm x 37 mm balloon expandable | | | stent placed. Kissingstent technique was utilized. Following placement | | | of the stents, the balloonswere removed over a guidewire. A | | | completion arteriogram was performed. This wasfollowed by removal of | | | the groin sheaths over guidewires with percutaneousclosure of the | | | arteriotomy is with 6 Fijian Angio-Seal devices. Hemostasis | | | wasimmediate. Findings: Ultrasound demonstrate patent bilateral common | | | femoral arteries.Initial left iliac arteriogram demonstrates | | | occlusion of the common iliacartery. Initial pelvic arteriogram from | | | the right groin approach demonstrateshigh-grade stenosis in the | | | proximal to mid right common iliac artery withocclusion of the left | | | common iliac artery from its origin. Following successfulcrossing of | | | the left iliac occlusion and stent deployment, brisk antegrade flowis | | | seen through the bilateral iliac arteries with no complicating | | | factors. IMPRESSION - Successful reconstitution of occluded left | | | common iliac artery withplacement of kissing bilateral common iliac | | | artery stents as described Dictated and Signed by: Nikolas Quinonez MD | | | Electronically signed: 02/23/2017 2:02 PM | | |artery. Initial pelvic arteriogram from the right groin approach demonstrates | | |high-grade stenosis in the proximal to mid right common iliac artery with | | |occlusion of the left common iliac artery from its origin. Following successful | | |crossing of the left iliac occlusion and stent deployment, brisk antegrade flow | | |is seen through the bilateral iliac arteries with no complicating factors. | | | | | |IMPRESSION - Successful reconstitution of occluded left common iliac artery with | | |placement of kissing bilateral common iliac artery stents as described | | | | | |Dictated and Signed by: Nikolas Quinonez MD | | | Electronically signed: 02/23/2017 2:02 PM | | | | | + +--------- ------+ + + | Procedure Note | + + | Varghese, Rad Results In - 02/23/2017 2:05 PM PST Exam: Pelvic arteriogram and bilateral | | common iliac artery stentsHistory: Occluded left common iliac arteryProcedures:1. | | Intravenous conscious sedation2. Ultrasound-guided bilateral common femoral | | micropuncture access3. Pelvic arteriogram4. Crossing of occluded left common iliac | | artery. Kissing common iliac arterystents with post stenting balloon dilatation | | arteriogram5. Percutaneous closure of bilateral common femoral arteriotomy is utilizing | | 6French Angio-Seal deviceMedications: 5 mg Versed, 300 mcg fentanyl, 150 mg Plavix. | | Continuoushemodynamic monitoring by the sedation nurse for approximately 90 | | minutesFluoroscopy time: 20.3 minutesContrast: 60 cc VisipaqueFluoroscopic images: | | 7Technique: Informed consent was obtained. The bilateral groins were prepped anddraped | | sterilely and local anesthesia administered. Standard micropuncturetechnique with | | ultrasound guidance was utilized to gain access to the leftcommon femoral artery. A 4 | | Fijian vascular sheath was placed. Using a catheterand guidewire, the catheter was | | placed into the midportion of the occluded leftcommon iliac artery. At this point, right | | common femoral arterial access wasgained. The universal flush catheter was placed at | | the bifurcation and roadmaptechnique performed. Using the "outback "device, the final | | segment of occludedleft common iliac artery was crossed. Guidewires were placed into the | | abdominalaorta. Over the wires, 4 Fijian sheaths were exchanged for bilateral 6 | | Frenchvascular sheath. On the left, an 8 mm x 57 mm balloon expandable stent wasplaced | | and on the right and 8mm x 37 mm balloon expandable stent placed. Kissingstent technique | | was utilized. Following placement of the stents, the balloonswere removed over a | | guidewire. A completion arteriogram was performed. This wasfollowed by removal of the | | groin sheaths over guidewires with percutaneousclosure of the arteriotomy is with 6 | | Fijian Angio-Seal devices. Hemostasis wasimmediate.Findings: Ultrasound demonstrate | | patent bilateral common femoral arteries.Initial left iliac arteriogram demonstrates | | occlusion of the common iliacartery. Initial pelvic arteriogram from the right groin | | approach demonstrateshigh-grade stenosis in the proximal to mid right common iliac | | artery withocclusion of the left common iliac artery from its origin. Following | | successfulcrossing of the left iliac occlusion and stent deployment, brisk antegrade | | flowis seen through the bilateral iliac arteries with no complicating factors.IMPRESSION | | - Successful reconstitution of occluded left common iliac artery withplacement of | | kissing bilateral common iliac artery stents as describedDictated and Signed by: Nikolas | | MD Cristiano Electronically signed: 02/23/2017 2:02 PM | |placed and on the right and 8mm x 37 mm balloon expandable stent placed. Kissing | |stent technique was utilized. Following placement of the stents, the balloons | |were removed over a guidewire. A completion arteriogram was performed. This was | |followed by removal of the groin sheaths over guidewires with percutaneous | |closure of the arteriotomy is with 6 Fijian Angio-Seal devices. Hemostasis was | |immediate. | | | |Findings: Ultrasound demonstrate patent bilateral common femoral arteries. | |Initial left iliac arteriogram demonstrates occlusion of the common iliac | |artery. Initial pelvic arteriogram from the right groin approach demonstrates | |high-grade stenosis in the proximal to mid right common iliac artery with | |occlusion of the left common iliac artery from its origin. Following successful | |crossing of the left iliac occlusion and stent deployment, brisk antegrade flow | |is seen through the bilateral iliac arteries with no complicating factors. | | | |IMPRESSION - Successful reconstitution of occluded left common iliac artery with | |placement of kissing bilateral common iliac artery stents as described | | | |Dictated and Signed by: Nikolas Quinonez MD | | Electronically signed: 02/23/2017 2:02 PM | + + + +---------+ + + | Performing | Address | City/State/Zipcode | Phone Number | | Organization | | | | + +---------+ + + | [facility] | | | | + +---------+ + + documented in this encounter Visit Diagnoses + + | Diagnosis | + + | Atherosclerosis of [place] arteries of extremities with intermittent claudication, | | bilateral legs (HCC) - Primary | + + documented in this encounter
--- OUTSIDE RECORDS SUMMARY | ~2019-04-12 | XMS | Encounter Summary ---
Demographics + + + | Address | [address] | | | [place] [address] | + + + | Home Phone | | + + + | Preferred Language | Unknown | + + + | Marital Status | | + + + | Episcopal Affiliation | Unknown | + + + | Race | Unknown | + + + | Ethnic Group | Unknown | + + + Author + + + | Author | [facility] | | | and [place] | + + + | Organization | [facility] | | | and [place] | + + + | Address | Unknown | + + + | Phone | Unavailable | + + + Support + + + + + | Name | Relationship | Address | Phone | + + + + + | Bobbi Ty | [address] | [place] | | | | | [address] | | + + + + + Care Team Providers + +------+ + | Care Banquet Director Name | Role | Phone | + +------+ + | Mani Amado PCP | | | | | | + +------+ + Encounter Details +--------+ + + + + | Date | Type | Department | Care Team | Description | +--------+ + + + + | 02/22/ | Abstract | [facility] | Chris Pugh | | | 2017 | | SURGERY [address] | MD Bronson, FACS [address] | | | | [address] [place], [place] | [address] [place] | | | | | [address] | [place] [address] | | | | | [phone] | [phone] | | | | | | | [...] Not on filedocumented as of this encounter Procedures + +--------+ + + + | Procedure Name | Priori | Date/Time | Associated Diagnosis | Comments | | | ty | | | | + +--------+ + + + | EXTERNAL LAB: BRO | Routin | 02/05/2017 | | Results for this | | | e | | | procedure are in the | | | | | | results section. | + +--------+ + + + | EXTERNAL LAB: | Routin | 02/05/2017 | | Results for this | | GLUCOSE | e | | | procedure are in the | | | | | | results section. | + +--------+ + + + | EXTERNAL LAB: | Routin | 02/05/2017 | | Results for this | | CALCIUM | e | | | procedure are in the | | | | | | results section. | + +--------+ + + + | EXTERNAL LAB: CARBON | Routin | 02/05/2017 | | Results for this | | DIOXIDE | e | | | procedure are in the | | | | | | results section. | + +--------+ + + + | EXTERNAL LAB: | Routin | 02/05/2017 | | Results for this | | CHLORIDE | e | | | procedure are in the | | | | | | results section. | + +--------+ + + + | EXTERNAL LAB: | Routin | 02/05/2017 | | Results for this | | POTASSIUM | e | | | procedure are in the | | | | | | results section. | + +--------+ + + + | EXTERNAL LAB: SODIUM | Routin | 02/05/2017 | | Results for this | | | e | | | procedure are in the | | | | | | results section. | + +--------+ + + + | EXTERNAL LAB: EGFR | Routin | 02/05/2017 | | Results for this | | | e | | | procedure are in the | | | | | | results section. | + +--------+ + + + | EXTERNAL LAB: | Routin | 02/05/2017 | | Results for this | | CREATININE | e | | | procedure are in the | | | | | | results section. | + +--------+ + + + | BASIC METABOLIC | Routin | 02/05/2017 | | Results for this | | PANEL | e | | | procedure are in the | | | | | | results section. | + +--------+ + + + documented in this encounter Results Basic Metabolic Panel (02/05/2017) + +-------+ + + + | Component | Value | Ref Range | Performed | Pathologist | | | | | At | Signature | + +-------+ + + + | Anion Gap | 16 | 7 - 21 mmol/L | | | + +-------+ + + + | BUN/Creatin | 20.7 | 6 - 28.6 | | | | ine Ratio | | | | | + +-------+ + + + + + | Specimen | + + | Blood | + + External Lab: BUN (02/05/2017) + +-------+ + + + | Component | Value | Ref Range | Performed | Pathologist | | | | | At | Signature | + +-------+ + + + | BUN, | 17 | 6 - 23 | EXTERNAL | | | External | | | LAB | | + +-------+ + + + + +---------+ + + | Performing | Address | City/State/Zipcode | Phone Number | | Organization | | | | + +---------+ + + | EXTERNAL LAB | | | | + +---------+ + + External Lab: Glucose (02/05/2017) + +---------+ + + + | Component | Value | Ref Range | Performed | Pathologist | | | | | At | Signature | + +---------+ + + + | Glucose, | 102 (A) | 70 - 100 | EXTERNAL | | | External | | | LAB | | + +---------+ + + + + +---------+ + + | Performing | Address | City/State/Zipcode | Phone Number | | Organization | | | | + +---------+ + + | EXTERNAL LAB | | | | + +---------+ + + External Lab: Calcium (02/05/2017) + +-------+ + + + | Component | Value | Ref Range | Performed | Pathologist | | | | | At | Signature | + +-------+ + + + | Calcium, | 9.2 | 8.4 - 10.2 | EXTERNAL | | | External | | | LAB | | + +-------+ + + + + +---------+ + + | Performing | Address | City/State/Zipcode | Phone Number | | Organization | | | | + +---------+ + + | EXTERNAL LAB | | | | + +---------+ + + External Lab: Carbon Dioxide (02/05/2017) + +-------+ + + + | Component | Value | Ref Range | Performed | Pathologist | | | | | At | Signature | + +-------+ + + + | Carbon | 22 | 19 - 31 | EXTERNAL | | | Dioxide, | | | LAB | | | External | | | | | + +-------+ + + + + +---------+ + + | Performing | Address | City/State/Zipcode | Phone Number | | Organization | | | | + +---------+ + + | EXTERNAL LAB | | | | + +---------+ + + External Lab: Chloride (02/05/2017) + +-------+ + + + | Component | Value | Ref Range | Performed | Pathologist | | | | | At | Signature | + +-------+ + + + | Chloride, | 108 | 95 - 112 | EXTERNAL | | | External | | | LAB | | + +-------+ + + + + +---------+ + + | Performing | Address | City/State/Zipcode | Phone Number | | Organization | | | | + +---------+ + + | EXTERNAL LAB | | | | + +---------+ + + External Lab: Potassium (02/05/2017) + +-------+ + + + | Component | Value | Ref Range | Performed | Pathologist | | | | | At | Signature | + +-------+ + + + | Potassium, | 4.1 | 3.6 - 5.1 | EXTERNAL | | | External | | | LAB | | + +-------+ + + + + +---------+ + + | Performing | Address | City/State/Zipcode | Phone Number | | Organization | | | | + +---------+ + + | EXTERNAL LAB | | | | + +---------+ + + External Lab: Sodium (02/05/2017) + +-------+ + + + | Component | Value | Ref Range | Performed | Pathologist | | | | | At | Signature | + +-------+ + + + | Sodium, | 143 | 132 - 143 | EXTERNAL | | | External | | | LAB | | + +-------+ + + + + +---------+ + + | Performing | Address | City/State/Zipcode | Phone Number | | Organization | | | | + +---------+ + + | EXTERNAL LAB | | | | + +---------+ + + External Lab: eGFR (02/05/2017) + +-------+ + + + | Component | Value | Ref Range | Performed | Pathologist | | | | | At | Signature | + +-------+ + + + | eGFR, | 69 | 60 - 9,999 | EXTERNAL | | | External | | ml/min | LAB | | + +-------+ + + + + + | Specimen | + + | Blood | + + + +---------+ + + | Performing | Address | City/State/Zipcode | Phone Number | | Organization | | | | + +---------+ + + | EXTERNAL LAB | | | | + +---------+ + + External Lab: Creatinine (02/05/2017) + +-------+ + + + | Component | Value | Ref Range | Performed | Pathologist | | | | | At | Signature | + +-------+ + + + | Creatinine, | 0.82 | 0.7 - 1.18 | EXTERNAL | | | External | | | LAB | | + +-------+ + + + + + | Specimen | + + | Blood | + + + +---------+ + + | Performing | Address | City/State/Zipcode | Phone Number | | Organization | | | | + +---------+ + + | EXTERNAL LAB | | | | + +---------+ + + documented in this encounter Visit Diagnoses Not on filedocumented in this encounter"
--- OUTSIDE RECORDS SUMMARY | ~2019-04-12 | XMS | Encounter Summary ---
Demographics + + + | Address | [address] | | | [place] [address] | + + + | Home Phone | | + + + | Preferred Language | Unknown | + + + | Marital Status | | + + + | Baptist Affiliation | Unknown | + + + | Race | Unknown | + + + | Ethnic Group | Unknown | + + + Author + + + | Author | [facility] | | | and [place] | + + + | Organization | [facility] | | | and [place] | + + + | Address | Unknown | + + + | Phone | Unavailable | + + + Support + + + + + | Name | Relationship | Address | Phone | + + + + + | Bobbi Ty | [address] | [place] | | | | | [address] | | + + + + + Care Team Providers + +------+ + | Care Forestry Extension Specialist Name | Role | Phone | + +------+ + PCP | Unavailable | + +------+ + Encounter Details +--------+ + + + + | Date | Type | Department | Care Team | Description | +--------+ + + + + | 06/16/ | [facility] | [facility] | [place], | | | 2006 - | Encounter | MED [facility] | Julio Huber MD [address] | | | | | CENTER [address] | [place] | | | 07/07/ | | [place] | [place] [address] | | | 2006 | | [address] | [phone] | | | | | [phone] | | | +--------+ + + + [...]
--- OUTSIDE RECORDS SUMMARY | ~2019-04-12 | XMS | Encounter Summary ---
Demographics + + + | Address | [address] | | | [place] [address] | + + + | Home Phone | | + + + | Preferred Language | Unknown | + + + | Marital Status | | + + + | Methodist Affiliation | Unknown | + + + | Race | Unknown | + + + | Ethnic Group | Unknown | + + + Author + + + | Author | [facility] | | | and [place] | + + + | Organization | [facility] | | | and [place] | + + + | Address | Unknown | + + + | Phone | Unavailable | + + + Support + + + + + | Name | Relationship | Address | Phone | + + + + + | Bobbi Ty | [address] | [place] | | | | | [address] | | + + + + + Care Team Providers + +------+ + | Care Certified Surgical Tech/First Assistant Name | Role | Phone | + +------+ + PCP | Unavailable | + +------+ + Encounter Details +--------+ + + + + | Date | Type | Department | Care Team | Description | +--------+ + + + + | 12/18/ | [facility] | [facility] | [place], | | | 2005 - | Encounter | MED CTR CANCER | Julio Huber MD [address] | | | | | CENTER [address] | [place] | | | 03/18/ | | [place] | [place] [address] | | | 2005 | | [address] | [phone] | | | | | [phone] | | | +--------+ + + + [...]
--- OUTSIDE RECORDS SUMMARY | ~2019-04-12 | XMS | Encounter Summary ---
Demographics + + + | Address | [address] | | | [place] [address] | + + + | Home Phone | | + + + | Preferred Language | Unknown | + + + | Marital Status | | + + + | Adventism Affiliation | Unknown | + + + | Race | Unknown | + + + | Ethnic Group | Unknown | + + + Author + + + | Author | [facility] | | | and [place] | + + + | Organization | [facility] | | | and [place] | + + + | Address | Unknown | + + + | Phone | Unavailable | + + + Support + + + + + | Name | Relationship | Address | Phone | + + + + + | Bobbi Ty | [address] | [place] | | | | | [address] | | + + + + + Care Team Providers + +------+ + | Care Faculty Physician Name | Role | Phone | + +------+ + | Mani Amado | PCP | | | MD | | | + +------+ + Encounter Details +--------+ + + + + | Date | Type | Department | Care Team | Description | +--------+ + + + + | 01/11/ | Imaging | [facility] | Provider, | | | 2017 | Exam | MED CTR EXTERNAL | [address] | | | | | IMAGING | [address] | | | | | [phone] | [place] [address] | | +--------+ + + + + [...] | + +--------+ + + + | CT ANGIOGRAM ABDOMEN | Routin | 12/27/2016 | | Results for this | | AORTA BILAT FEMORAL | e | 8:35 AM | | procedure are in the | | RUNOFF W CONTRAST | | PDT | | results section. | + +--------+ + + + documented in this encounter Results CT Angio Abd Aorta Bilat Fem Run W Cont (12/27/2016 8:35 AM PDT) + + | Specimen | + + | | + + + + + | Narrative | Performed At | + + + | External films | [facility] | | for comparison only - no result from [place]. | | + + + + +---------+ + + | Performing | Address | City/State/Zipcode | Phone Number | | Organization | | | | + +---------+ + + | [facility] | | | | + +---------+ + + documented in this encounter Visit Diagnoses Not on filedocumented in this encounter"
--- OUTSIDE RECORDS SUMMARY | ~2019-04-12 | XMS | Encounter Summary ---
Demographics + + + | Address | [address] | | | [place] [address] | + + + | Home Phone | | + + + | Preferred Language | Unknown | + + + | Marital Status | | + + + | Latter-Day Affiliation | Unknown | + + + | Race | Unknown | + + + | Ethnic Group | Unknown | + + + Author + + + | Author | [facility] | | | and [place] | + + + | Organization | [facility] | | | and [place] | + + + | Address | Unknown | + + + | Phone | Unavailable | + + + Support + + + + + | Name | Relationship | Address | Phone | + + + + + | Bobbi Ty | [address] | [place] | | | | | [address] | | + + + + + Care Team Providers + +------+ + | Care Network Admin Name | Role | Phone | + +------+ + | Mani Amado PCP | | | MD | | | + +------+ + Reason for Visit Auth/Cert +--------+--------+ + + + + | Status | Reason | Specialty | Diagnoses / | Referred By | Referred To | | | | | Procedures | Contact | Contact | +--------+--------+ + + + + | | | | Diagnoses | | | | | | | | | | | | | | 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 | | | | | | | extremities | | | | | | | with | | | | | | | intermittent | | | | | | | | | | | | | | claudication | | | | | | | , bilateral | | | | | | | legs (HCC) | | | | | | | 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 | | | | | | | extremities | | | | | | | with | | | | | | | intermittent | | | | | | | | | | | | | | claudication | | | | | | | , bilateral | | | | | | | legs | | | | | | | Procedures | | | | | | | Left Common | | | | | | | Iliac | | | | | | | angioplasty | | | +--------+--------+ + + + + Encounter Details +--------+---------+ + + + | Date | Type | Department | Care Team | Description | +--------+---------+ + + + | 02/23/ | Surgery | [facility] | Nikolas Quinonez MD | Left Common Iliac | | 2017 | | [facility] | [address] | angioplasty | | | | [address] | [address] | | | | | [place] | [place] [address] | | | | | [address] | [phone] | | | | | [phone] | | | +--------+---------+ + + + Social History + + [...] + + documented as of this encounter Last Filed Vital Signs + + + + + | Vital Sign | Reading | Time Taken | Comments | + + + + + | Blood Pressure | 151/64 | 02/23/2017 3:46 PM | | | | | PST | | + + + + + | Pulse | 69 | 02/23/2017 3:46 PM | | | | | PST | | + + + + + | Temperature | 36.4 C (97.5 F) | 02/23/2017 9:04 AM | | | | | PST | | + + + + + | Respiratory Rate | 13 | 02/23/2017 3:46 PM | | | | | PST | | + + + + + | Oxygen Saturation | 96% | 02/23/2017 3:46 PM | | | | | PST | | + + + + + | Inhaled Oxygen | - | - | | | Concentration | | | | + + + + + | Weight | 87 kg (191 lb 12.8 | 02/23/2017 9:04 AM | | | | oz) | PST | | + + + + + | Height | 157.5 cm (5' 2") | 02/23/2017 9:04 AM | | | | | PST | | + + + + + | Body Mass Index | 35.08 | 02/23/2017 9:04 AM | | | | | PST | | + + + + + documented in this encounter Discharge Instructions Instructions Rodger Edmond RN - 02/23/2017Formatting of this note might be different f rom the original. Discharge Instructions for Cardiac Catheterization Cardiac catheterizationis aprocedureto look for blocked areas in the blood vessels th at send blood to the heart.A thin, flexible tube (catheter) is put in a blood vessel in yo ur groin or arm. The healthcare provider injects contrast fluidinto your blood, which then flows to your heart.X-rays picturesare taken of your heart. Your provider will review t he results with you. Be sure to ask any questions you have before you leave. This sheet will help you take care of yourself at home. Home care Only do light and easy activities forthe next 2 to 3days. Ask for help with chores a nd errands while you recover. Have someone drive you to your appointments. Don't lift anything heavyfor a while. Your healthcare team will tell you when it's saf e to lift again. Ask your healthcare team when you can expect to return to work. Unless your job involves lifting, you may be able to return to your normal activities within a couple of days. Take your medicines as directed. Don't skip doses. Drink6 to 8glasses of water a day. This is to help flush the contrast dye out of you r body. Call your healthcare team if your urine has any change in color. Take your temperature each day for 7 days. If you feel cold and clammy or start sweating , take your temperature right away and call your healthcare team. Check your incisions every day for signs of infection. These include redness, swelling, and drainage. It is normal to have a small bruise or bump where the catheter was inserted. A bruise that is getting larger is not normal and should be reported to your healthcare team. If you see blood forming in the incision, call your healthcare team. Go to the emergency de partment if you have uncontrolled bleeding from the artery site. This is especially true if you take medicines that make it difficult for your blood to clot. Examples are aspirin, clop idogrel, and warfarin. Eat a healthy diet. Make sure it is low in fat, salt, and cholesterol. Ask your healthca re team for diet information. Stop smoking. Enroll in a stop-smoking program or ask your healthcare team for help. Sto p-smoking programs can be life saving. Exercise as your healthcare team tells you to. Your healthcare teammay recommend you s tart a cardiac rehabilitation program. Cardiac rehab is an exercise program in which trained healthcare staff watch your progress and stress on your heart while you exercise. Ask your team how to enroll. Don't swim or take baths until your healthcare team says it s OK. You can shower the d ay after the procedure. Keep the site clean and dry. This keeps the incision from getting we t and infected until the skin and artery can heal. Follow-up care Make a follow-up appointment as advised by our staff. It's common to have a follow-up ap pointment 2 to 4 weeks after an angioplasty or coronary stent procedure. Make a yearly appointment, too. This isto make sure you are still doing well and not h aving any new symptoms. Don't wait for a follow-up appointment if your medicines aren't working or you are havin g heart-related symptoms. When to seek medical care Call your healthcare provider right away if you have any of the following: Chest pain Constant or increasing pain or numbness in your leg Fever of 100.4F(38.0C) or higher, or as directed by your healthcare provider Symptoms of infection. These include redness, swelling, drainage, or warmth at the incis ion site. Shortness of breath A leg that feels cold or appears blue Bleeding, bruising, or a lot ofswelling where the catheter was inserted Blood in your urine Black or tarry stools Any unusual bleeding Date Last Reviewed: 01/08/201619994349-3101 [employer]. [address] [place] [address], [place] [address]. All righ ts reserved. This information is not intended as a substitute for professional medical care. Always follow your healthcare professional's instructions. documented in this encounter Medications at Time of Discharge + + + +---------+--------+ + | Medication | Sig | Dispensed | Refills | Start | End Date | | | | | | Date | | + + + +---------+--------+ + | albuterol (PROAIR | Inhale 2 puffs into | | 0 | | | | HFA) 90 mcg/puff | the lungs as needed | | | | | | inhaler | for Wheezing. | | | | | + + + +---------+--------+ + | Azelastine HCl | 2 sprays by Nasal | | 0 | | | | (ASTEPRO) 0.15 % | route as needed. Use | | | | | | nasal spray | in each nostril as | | | | | | | directed. | | | | | + + + +---------+--------+ + | ergocalciferol | Take 50,000 Units by | | 0 | | | | (VITAMIN D-2) 50,000 | mouth Once a week. | | | | | | units capsule | | | | | | + + + +---------+--------+ + | eszopiclone | Take 3 mg by mouth | | 0 | | | | (ESZOPICLONE) 3 MG | nightly. | | | | | | TABS | | | | | | + + + +---------+--------+ + | fenofibrate | Take 160 mg by mouth | | 0 | | | | (LOFIBRA, TRIGLIDE) | Daily. | | | | | | 160 mg tablet | | | | | | + + + +---------+--------+ + | fexofenadine | Take 180 mg by mouth | | 0 | | | | (FRANCHESKA) 180 mg | as needed. | | | | | | tablet | | | | | | + + + +---------+--------+ + | fluticasone | 2 sprays by Nasal | | 0 | | | | (FLONASE) 50 | route as needed. | | | | | | mcg/nasal spray | | | | | | + + + +---------+--------+ + | aspirin 81 MG | Take 81 mg by mouth | | 0 | | | | tablet | Daily. Forgets often | | | | 7 | + + + +---------+--------+ + | Compression | by Does not apply | | 0 | | | | Bandages MISC | route. 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 | | | | | + + + +---------+--------+ + | ibuprofen (ADVIL, | Take 800 mg by mouth | | 0 | | | | MOTRIN) 400 mg | every 6 hours as | | | | 7 | | tablet | needed for Pain. | | | | | + + + +---------+--------+ + documented as of this encounter Plan of Treatment Not on filedocumented as of this encounter Procedures + +--------+ + + + | Procedure Name | Priori | Date/Time | Associated Diagnosis | Comments | | | ty | | | | + +--------+ + + + | IR ANGIO UPPER/LOWER | Routin | 02/23/2017 | Atherosclerosis of | Results for this | | EXTREMITY | e | 1:56 PM | tangirnaq arteries of | procedure are in the | | | | PST | extremities with | results section. | | | | | intermittent | | | | | | claudication, | | | | | | bilateral legs (HCC) | | + +--------+ + + + | I/R PROCEDURE | | 02/23/2017 | Atherosclerosis of | | | | | 12:05 PM | tangirnaq arteries of | | | | | PST | extremities with | | | | | | intermittent | | | | | | claudication, | | | | | | bilateral legs | | + +--------+ + + + | BASIC METABOLIC | STAT | 02/23/2017 | | Results for this | | PANEL | | 9:50 AM | | procedure are in the | | | | PST | | results section. | + +--------+ + + + | PROTIME INR | STAT | 02/23/2017 | | Results for this | | | | 9:37 AM | | procedure are in the | | | | PST | | results section. | + +--------+ + + + | CBC WITH | STAT | 02/23/2017 | | Results for this | | DIFFERENTIAL | | 9:37 AM | | procedure are in the | | | | PST | | results section. | + +--------+ + + + documented in this encounter Results IR Angio Upper/Lower Extremity [...] | | | femoral artery. A 4 [place] vascular sheath was placed. Using a | [...] | | | Over the wires, 4 [place] sheaths were exchanged for bilateral 6 | [...] | | | arteriotomy is with 6 [place] Angio-Seal devices. Hemostasis | | | wasimmediate. [...] leftcommon femoral artery. A 4 | | [place] vascular sheath was placed. Using a catheterand [...] | | abdominalaorta. Over the wires, 4 [place] sheaths were exchanged for bilateral 6 | [...] the arteriotomy is with 6 | | [place] Angio-Seal devices. Hemostasis wasimmediate.Findings: Ultrasound demonstrate | [...] |closure of the arteriotomy is with 6 [place] Angio-Seal devices. Hemostasis was | |immediate. | [...] | | | + +---------+ + + Basic Metabolic Panel (02/23/2017 9:50 AM PST) + + + + + + | Component | Value | Ref Range | Performed | Pathologist | | | | | At | Signature | + + + + + + | Na | 142 | 136 - 149 | [facility] | | | | | mmol/L | [facility] | | | | | | [facility] | | | | | | [facility] - | | | | | | LABORATORY | | + + + + + + | K | 4.2 | 3.5 - 5.1 | [facility] | | | | | mmol/L | [facility] | | | | | | [facility] | | | | | | C[facility] - | | | | | | LABORATORY | | + + + + + + | Cl | 111 (H) | 98 - 109 mmol/L | [facility] | | | | | | [facility] | | | | | | [facility] | | | | | | [facility] - | | | | | | LABORATORY | | + + + + + + | CO2 | 20 (L) | 24 - 31 mmol/L | [facility] | | | | | | [facility] | | | | | | [facility] | | | | | | [facility] - | | | | | | LABORATORY | | + + + + + + | Anion Gap | 11 | 3 - 16 mmol/L | [facility] | | | | | | [facility] | | | | | | [facility] | | | | | | [facility] - | | | | | | LABORATORY | | + + + + + + | Glucose | 118 (H) | 70 - 109 mg/dL | [facility] | | | | | [facility] | | | | | | [facility] - | | | | | | LABORATORY | | + + + + + + | BUN | 17 | 7 - 18 mg/dL | [facility] | | | | | | [facility] | | | [facility] | | [facility] | | | | | | [facility] - | | | | | | LABORATORY | | + + + + + + | Creatinine | 1.00 | 0.60 - 1.30 | [facility] | | | | | mg/dL | [facility] | | | | | | MEDICAL | | | | | | CENTER - | | | | | | LABORATORY | | + + + + + + | eGFR if not | 55 (L)Comment: | >=60 | [facility] | | | | GLOMERULAR FILTRATION | mL/min/1.73m2 | [facility] | | | [place] | RATE,ESTIMATED | | MEDICAL | | | | mL/min/1.12m3Bphy than | | CENTER - | | | | 60 Chronic kidney | | LABORATORY | | | | disease,if found over a | | | | | | 3-month period.Less than | | | | | | 15 Kidney failureFor | | | | | | | | | | | | Americans,multiply the | | | | | | calculated GFR by 1.21. | | | | | | | | | | + + + + + + | Calcium | 9.7 | 8.3 - 10.5 | [facility] | | | | | mg/dL | [facility] | [facility] | | | | | | [facility] - | | | | | | LABORATORY | | + + + + + + | BUN/Creatin | 17.0 | | [facility] | | | ine Ratio | | | [facility] | | | | | | [facility] | | | | | | CENTER - | | | | | | LABORATORY | | + + + + + + + + | Specimen | + + | Blood | + + + + + + + | Performing | Address | City/State/Zipcode | Phone Number | | Organization | | | | + + + + + | [facility] | [address] | [place] | [phone] | | [facility] | | [address] | | | - LABORATORY | | | | + + + + + Protime INR (02/23/2017 9:37 AM PST) + + + + + + | Component | Value | Ref Range | Performed | Pathologist | | | | | At | Signature | + + + + + + | Prothrombin | 11.8 | 11.3 - 13.9 | [facility] | | | Time | | seconds | [facility] | | | | | | MEDICAL | | | | | | CENTER - | | | | | | LABORATORY | | + + + + + + | INR | 0.88 (L)Comment: Usual | 0.90 - 1.10 | [facility] | | | | Oral Anticoagulation | | [facility] | | | | Range: 2.0 - | | MEDICAL | | | | 3.0High Level Oral | | CENTER - | | | | Anticoagulation Range: | | LABORATORY | | | | 2.5 - 3.5 | | | | + + + + + + + + | Specimen | + + | Blood | + + + + + + + | Performing | Address | City/State/Zipcode | Phone Number | | Organization | | | | + + + + + | [facility] | [address] | [place] | [phone] | | [facility] | | [address] | | | - LABORATORY | | | | + + + + + CBC with Differential (02/23/2017 9:37 AM PST) + + + + + + | Component | Value | Ref Range | Performed | Pathologist | | | | | At | Signature | + + + + + + | WBC | 10.2 | 4.0 - 11.0 K/uL | [facility] | | | | | | [facility] | | | | | | MEDICAL | | | | | | CENTER - | | | | | | LABORATORY | | + + + + + + | RBC | 4.93 | 3.70 - 5.20 | [facility] | | | | | M/uL | [facility] | | | | | | MEDICAL | | | | | | CENTER - | | | | | | LABORATORY | | + + + + + + | Hemoglobin | 14.7 | 11.5 - 16.0 | [facility] | | | | | g/dL | [facility] | | | | | | MEDICAL | | | | | | CENTER - | | | | | | LABORATORY | | + + + + + + | Hematocrit | 43.1 | 34.0 - 47.0 % | [facility] | | | | | | [facility] | | | | | | MEDICAL | | | | | | CENTER - | | | | | | LABORATORY | | + + + + + + | MCV | 87.4 | 83.0 - 101.0 fL | [facility] | | | | | | [facility] | | | | | | MEDICAL | | | | | | CENTER - | | | | | | LABORATORY | | + + + + + + | MCH | 29.8 | 28.0 - 35.0 pg | [facility] | | | | | | [facility] | | | | | | MEDICAL | | | | | | CENTER - | | | | | | LABORATORY | | + + + + + + | MCHC | 34.1 | 32.0 - 36.0 | [facility] | | | | | g/dL | [facility] | | | | | | MEDICAL | | | | | | CENTER - | | | | | | LABORATORY | | + + + + + + | RDW-CV | 13.9 | <15.0 % | [facility] | | | | | | [facility] | | | | | | MEDICAL | | | | | | CENTER - | | | | | | LABORATORY | | + + + + + + | Platelet | 443 (H) | 140 - 440 K/uL | [facility] | | | Count | | | [facility] | | | | | | MEDICAL | | | | | | CENTER - | | | | | | LABORATORY | | + + + + + + | MPV | 7.9 | fL | [facility] | | | | | | [facility] | | | | | | MEDICAL | | | | | | CENTER - | | | | | | LABORATORY | | + + + + + + | % | 48.5 | 45.0 - 82.0 % | [facility] | | | Neutrophils | | | [facility] | | | | | | MEDICAL | | | | | | CENTER - | | | | | | LABORATORY | | + + + + + + | % | 33.4 | 20.0 - 45.0 % | [facility] | | | Lymphocytes | | | [facility] | | | | | | MEDICAL | | | | | | CENTER - | | | | | | LABORATORY | | + + + + + + | % Monocytes | 9.4 | 4.0 - 12.0 % | [facility] | | | | | | [facility] | | | | | | MEDICAL | | | | | | CENTER - | | | | | | LABORATORY | | + + + + + + | % | 8.5 (H) | 0.0 - 5.0 % | [facility] | | | Eosinophils | | | [facility] | | | | | | MEDICAL | | | | | | CENTER - | | | | | | LABORATORY | | + + + + + + | % Basophils | 0.2 | 0.0 - 1.0 % | [facility] | | | | | | [facility] | | | | | | MEDICAL | | | | | | CENTER - | | | | | | LABORATORY | | + + + + + + | Absolute | 4.90 | 1.80 - 8.50 | [facility] | | | Neutrophils | | K/uL | [facility] | | | | | | MEDICAL | | | | | | CENTER - | | | | | | LABORATORY | | + + + + + + | Absolute | 3.40 (H) | 0.60 - 3.20 | [facility] | | | Lymphocytes | | K/uL | [facility] | | | | | | MEDICAL | | | | | | CENTER - | | | | | | LABORATORY | | + + + + + + | Absolute | 1.00 | 0.00 - 1.00 | [facility] | | | Monocytes | | K/uL | [facility] | | | | | | MEDICAL | | | | | | CENTER - | | | | | | LABORATORY | | + + + + + + | Absolute | 0.90 (H) | 0.00 - 0.40 | [facility] | | | Eosinophils | | K/uL | [facility] | | | | | | MEDICAL | | | | | | CENTER - | | | | | | LABORATORY | | + + + + + + | Absolute | 0.00 | 0.00 - 0.10 | [facility] | | | Basophils | | K/uL | [facility] | | | | | | MEDICAL | | | | | | CENTER - | | | | | | LABORATORY | | + + + + + + + + | Specimen | + + | Blood | + + + + + + + | Performing | Address | City/State/Zipcode | Phone Number | | Organization | | | | + + + + + | [facility] | [address] | [place] | [phone] | | [facility] | | [address] | | | - LABORATORY | | | | + + + + + documented in this encounter Visit Diagnoses Not on filedocumented in this encounter Administered Medications + +---------+ +------+------+------+ | Medication Order | MAR | Action | Dose | Rate | Site | | | Action | Date | | | | + +---------+ +------+------+------+ | ceFAZolin (ANCEF, KEFZOL) 1 g | New Bag | 02/24/20 | 1 g | | | | in sodium chloride 0.9% 50 mL | | 17 1:31 | | | | | IVPB Administer over 30 Minutes, | | PM PST | | | | | CONTINUOUS PRN, Starting Sun | | | | | | | 02/23/17 at 1331 | | | | | | + +---------+ +------+------+------+ +---+---+ | | | +---+---+ + +-------+ +--------+---+---+ | clopidogrel (PLAVIX) tablet | Given | 02/24/20 | 150 mg | | | | PRN, Starting 11/17/17 at | | 17 1:53 | | | | | 1353 | | PM PST | | | | + +-------+ +--------+---+---+ +---+---+ | | | +---+---+ + +-------+ +--------+---+---+ | fentaNYL (PF) injection PRN, | Given | 02/24/20 | 50 mcg | | | | Starting 02/23/17 at 1213 | | 17 1:33 | | | | | | | PM PST | | | | + +-------+ +--------+---+---+ +-------+ +--------+---+---+ | Given | 02/24/20 | 50 mcg | | | | | 17 1:09 | | | | | | PM PST | | | | +-------+ +--------+---+---+ | Given | 02/24/20 | 50 mcg | | | | | 17 12:46 | | | | | | PM PST | | | | +-------+ +--------+---+---+ +---+---+ | | | +---+---+ + +-------+ +--------+---+---+ | heparin 1,000 units/mL | Given | 02/24/20 | 3,000 | | | | injection PRN, Starting Fri | | 17 1:16 | Units | | | | 02/23/17 at 1316 | | PM PST | | | | + +-------+ +--------+---+---+ +---+---+ | | | +---+---+ + +-------+ +--------+---+---+ | iodixanol (VISIPAQUE 320) 320 | Given | 02/24/20 | 24 mLs | | | | mg/mL injection Intravenous, | | 17 1:48 | | | | | PRN, Starting 02/23/17 at | | PM PST | | | | | 1348 | | | | | | + +-------+ +--------+---+---+ +---+---+ | | | +---+---+ + +-------+ +--------+---+---+ | iohexol (OMNIPAQUE 350) 350 | Given | 02/24/20 | 36 mLs | | | | mg/mL injection Intravenous, | | 17 1:47 | | | | | PRN, Starting Sun02/23/17 at | | PM PST | | | | | 1347 | | | | | | + +-------+ +--------+---+---+ +---+---+ | | | +---+---+ + +-------+ +-------+---+ + | lidocaine 1% injection | Given | 02/24/20 | 4 mLs | | Surgical | | Infiltration, PRN, Starting Sun | | 17 12:27 | | | Site | | 02/23/17 at 1217 | | PM PST | | | | + +-------+ +-------+---+ + +-------+ +-------+---+ + | Given | 02/24/20 | 5 mLs | | Surgical | | | 17 12:17 | | | Site | | | PM PST | | | | +-------+ +-------+---+ + +---+---+ | | | +---+---+ + +-------+ +------+---+---+ | midazolam (VERSED) 1 mg/mL | Given | 02/24/20 | 1 mg | | | | injection PRN, Starting Fri | | 17 1:09 | | | | | 02/23/17 at 1213 | | PM PST | | | | + +-------+ +------+---+---+ +-------+ +--------+---+---+ | Given | 02/24/20 | 0.5 mg | | | | | 17 12:46 | | | | | | PM PST | | | | +-------+ +--------+---+---+ | Given | 02/24/20 | 1 mg | | | | | 17 12:37 | | | | | | PM PST | | | | +-------+ +--------+---+---+ +---+---+ | | | +---+---+ + +---------+ +--------+ +---+ | sodium chloride 0.9% (NS) | New Bag | 02/24/20 | 1,000 | 50 mL/hr | | | infusion at 50 mL/hr, | | 17 9:28 | mLs | | | | Intravenous, CONTINUOUS, Starting | | AM PST | | | | | 02/23/17 at 0930, OK to use | | | | | | | implantable port., Pre-op | | | | | | + +---------+ +--------+ +---+ +---------+ +--------+ +---+ | New Bag | 02/24/20 | 1,000 | 50 mL/hr | | | | 17 9:25 | mLs | | | | | AM PST | | | | +---------+ +--------+ +---+ +---+---+ | | | +---+---+ documented in this encounter
--- OUTSIDE RECORDS SUMMARY | ~2019-04-12 | XMS | Encounter Summary ---
Demographics + + + | Address | [address] | | | [place] [address] | + + + | Home Phone | | + + + | Preferred Language | Unknown | + + + | Marital Status | | + + + | Yazidism Affiliation | Unknown | + + + | Race | Unknown | + + + | Ethnic Group | Unknown | + + + Author + + + | Author | [facility] | | | and [place] | + + + | Organization | [facility] | | | and [place] | + + + | Address | Unknown | + + + | Phone | Unavailable | + + + Support + + + + + | Name | Relationship | Address | Phone | + + + + + | Bobbi Ty | [address] | [place] | | | | | [address] | | + + + + + Care Team Providers + +------+ + | Care Loss Prevention Consultant Name | Role | Phone | + +------+ + | Mani Amado PCP | | | | | | + +------+ + Encounter Details +--------+ + + + + | Date | Type | Department | Care Team | Description | +--------+ + + + + | 02/28/ | Abstract | [facility] | Chris Pugh | | | 2017 | | SURGERY [address] | MD Bronson, FACS [address] | | | | [address] [place], [place] | [address] [place] | | | | | [address] | [place] [address] | | | | | [phone] | [phone] | | | | | | | [...]
--- OUTSIDE RECORDS SUMMARY | ~2019-04-12 | XMS | Encounter Summary ---
Demographics + + + | Address | [address] | | | [place] [address] | + + + | Home Phone | | + + + | Preferred Language | Unknown | + + + | Marital Status | | + + + | Sikhism Affiliation | Unknown | + + + | Race | Unknown | + + + | Ethnic Group | Unknown | + + + Author + + + | Author | [facility] | | | and [place] | + + + | Organization | [facility] | | | and [place] | + + + | Address | Unknown | + + + | Phone | Unavailable | + + + Support + + + + + | Name | Relationship | Address | Phone | + + + + + | Bobbi Ty | [address] | [place] | | | | | [address] | | + + + + + Care Team Providers + +------+ + | Care Overage Shortage And Damage Clerk Name | Role | Phone | + +------+ + | Mani Amado PCP | | | | | | + +------+ + Encounter Details +--------+ + + + + | Date | Type | Department | Care Team | Description | +--------+ + + + + | 01/15/ | Abstract | [facility] | Chris Pugh | | | 2017 | | SURGERY [address] | MD Bronson, FACS [address] | | | | | [place], [place] | [address] [place] | | | | | [address] | [place] [address] | | | | | [phone] | [phone] | | | | | | | [...] | EXTERNAL LAB: BRO | Routin | 01/03/2017 | | Results for this | | | e | | | procedure are in the | | | | | | results section. | + +--------+ + + + | EXTERNAL LAB: | Routin | 01/03/2017 | | Results for this | | GLUCOSE | e | | | procedure are in the | | | | | | results section. | + +--------+ + + + | EXTERNAL LAB: | Routin | 01/03/2017 | | Results for this | | CALCIUM | e | | | procedure are in the | | | | | | results section. | + +--------+ + + + | EXTERNAL LAB: CARBON | Routin | 01/03/2017 | | Results for this | | DIOXIDE | e | | | procedure are in the | | | | | | results section. | + +--------+ + + + | EXTERNAL LAB: | Routin | 01/03/2017 | | Results for this | | CHLORIDE | e | | | procedure are in the | | | | | | results section. | + +--------+ + + + | EXTERNAL LAB: | Routin | 01/03/2017 | | Results for this | | POTASSIUM | e | | | procedure are in the | | | | | | results section. | + +--------+ + + + | EXTERNAL LAB: SODIUM | Routin | 01/03/2017 | | Results for this | | | e | | | procedure are in the | | | | | | results section. | + +--------+ + + + | EXTERNAL LAB: CBC | Routin | 01/03/2017 | | Results for this | | | e | | | procedure are in the | | | | | | results section. | + +--------+ + + + | EXTERNAL LAB: EGFR | Routin | 01/03/2017 | | Results for this | | | e | | | procedure are in the | | | | | | results section. | + +--------+ + + + | EXTERNAL LAB: | Routin | 01/03/2017 | | Results for this | | CREATININE | e | | | procedure are in the | | | | | | results section. | + +--------+ + + + | CBC WITH | Routin | 01/03/2017 | | Results for this | | DIFFERENTIAL | e | | | procedure are in the | | | | | | results section. | + +--------+ + + + | COMPREHENSIVE | Routin | 01/03/2017 | | Results for this | | METABOLIC PANEL | e | | | procedure are in the | | | | | | results section. | + +--------+ + + + documented in this encounter Results Comprehensive Metabolic Panel (01/03/2017) + +-------+ + + + | Component | Value | Ref Range | Performed | Pathologist | | | | | At | Signature | + +-------+ + + + | Anion Gap | 13 | 7 - 21 mmol/L | | | + +-------+ + + + | BUN/Creatin | 17.8 | 8.0 - 28.6 | | | | ine Ratio | | Ratio | | | + +-------+ + + + + + | Specimen | + + | Blood | + + CBC with Differential (01/03/2017) + +-------+ + + + | Component | Value | Ref Range | Performed | Pathologist | | | | | At | Signature | + +-------+ + + + | MCH | 30.0 | 26.0 - 33.0 pg | | | + +-------+ + + + | MCHC | 33.0 | 30.0 - 36.0 % | | | + +-------+ + + + | % Basophils | 0.4 | 0.0 - 1.0 % | | | + +-------+ + + + + + | Specimen | + + | Blood | + + External Lab: BRO (01/03/2017) + +-------+ + + + | Component | Value | Ref Range | Performed | Pathologist | | | | | At | Signature | + +-------+ + + + | BUN, | 18 | 6 - 23 | EXTERNAL | | | External | | | LAB | | + +-------+ + + + + +---------+ + + | Performing | Address | City/State/Zipcode | Phone Number | | Organization | | | | + +---------+ + + | EXTERNAL LAB | | | | + +---------+ + + External Lab: Glucose (01/03/2017) + +---------+ + + + | Component | Value | Ref Range | Performed | Pathologist | | | | | At | Signature | + +---------+ + + + | Glucose, | 107 (A) | 70 - 100 | EXTERNAL | | | External | | | LAB | | + +---------+ + + + + +---------+ + + | Performing | Address | City/State/Zipcode | Phone Number | | Organization | | | | + +---------+ + + | EXTERNAL LAB | | | | + +---------+ + + External Lab: Calcium (01/03/2017) + +-------+ + + + | Component | Value | Ref Range | Performed | Pathologist | | | | | At | Signature | + +-------+ + + + | Calcium, | 9.5 | 8.4 - 10.2 | EXTERNAL | | | External | | | LAB | | + +-------+ + + + + +---------+ + + | Performing | Address | City/State/Zipcode | Phone Number | | Organization | | | | + +---------+ + + | EXTERNAL LAB | | | | + +---------+ + + External Lab: Carbon Dioxide (01/03/2017) + +-------+ + + + | Component | Value | Ref Range | Performed | Pathologist | | | | | At | Signature | + +-------+ + + + | Carbon | 24 | 19 - 31 | EXTERNAL | [...] + +---------+ + + External Lab: Chloride (01/03/2017) + +-------+ + + + | Component | Value | Ref Range | Performed | Pathologist | | | | | At | Signature | + +-------+ + + + | Chloride, | 109 | 95 - 112 | EXTERNAL | | | External | | | LAB | | + +-------+ + + + + +---------+ + + | Performing | Address | City/State/Zipcode | Phone Number | | Organization | | | | + +---------+ + + | EXTERNAL LAB | | | | + +---------+ + + External Lab: Potassium (01/03/2017) + +-------+ + + + | Component | Value | Ref Range | Performed | Pathologist | | | | | At | Signature | + +-------+ + + + | Potassium, | 3.9 | 3.5 - 5.1 | EXTERNAL | | | External | | | LAB | | + +-------+ + + + + +---------+ + + | Performing | Address | City/State/Zipcode | Phone Number | | Organization | | | | + +---------+ + + | EXTERNAL LAB | | | | + +---------+ + + External Lab: Sodium (01/03/2017) + +-------+ + + + | Component | Value | Ref Range | Performed | Pathologist | | | | | At | Signature | + +-------+ + + + | Sodium, | 141 | 132 - 143 | EXTERNAL | | | External | | | LAB | | + +-------+ + + + + +---------+ + + | Performing | Address | City/State/Zipcode | Phone Number | | Organization | | | | + +---------+ + + | EXTERNAL LAB | | | | + +---------+ + + External Lab: CBC (01/03/2017) + +---------+ + + + | Component | Value | Ref Range | Performed | Pathologist | | | | | At | Signature | + +---------+ + + + | WBC, | 9.9 | 4.5 - 11 | EXTERNAL | | | External | | | LAB | | + +---------+ + + + | HGB, | 13.8 | 12 - 16 | EXTERNAL | | | External | | | LAB | | + +---------+ + + + | HCT, | 41.2 | 35 - 45 | EXTERNAL | | | External | | | LAB | | + +---------+ + + + | PLT, | 477 (A) | 140 - 440 | EXTERNAL | | | External | | | LAB | | + +---------+ + + + | Neutrophils | 44.8 | 39 - 80 | EXTERNAL | | | %, | | | LAB | | | External | | | | | + +---------+ + + + | Lymphocytes | 43.1 | 24 - 44 | EXTERNAL | | | %, | | | LAB | | | External | | | | | + +---------+ + + + | Monocytes | 8.8 | 0 - 12 | EXTERNAL | | | %, External | | | LAB | | + +---------+ + + + | Eosinophils | 2.9 | 0 - 5 | EXTERNAL | | | %, | | | LAB | | | External | | | | | + +---------+ + + + | RBC, | 4.67 | 3.8 - 5.1 | EXTERNAL | | | External | | | LAB | | + +---------+ + + + | MCV, | 88 | 81 - 99 | EXTERNAL | | | External | | | LAB | | + +---------+ + + + | RDW, | 12.6 | 10.5 - 15 | EXTERNAL | | | External | | | LAB | | + +---------+ + + + + +---------+ + + | Performing | Address | City/State/Zipcode | Phone Number | | Organization | | | | + +---------+ + + | EXTERNAL LAB | | | | + +---------+ + + External Lab: eGFR (01/03/2017) + +-------+ + + + | Component | Value | Ref Range | Performed | Pathologist | | | | | At | Signature | + +-------+ + + + | eGFR, | 54 | | EXTERNAL | | | | | | LAB | | | [place], | | | | | | External | | | [...] + +---------+ + + External Lab: Creatinine (01/03/2017) + +-------+ + + + | Component | Value | Ref Range | Performed | Pathologist | | | | | At | Signature | + +-------+ + + + | Creatinine, | 1.01 | 0.7 - 1.18 | EXTERNAL | [...]
--- OUTSIDE RECORDS SUMMARY | ~2019-04-12 | XMS | Encounter Summary ---
Demographics + + + | Address | [address] | | | [place] [address] | + + + | Home Phone | | + + + | Preferred Language | Unknown | + + + | Marital Status | | + + + | Orthodoxy Affiliation | Unknown | + + + | Race | Unknown | + + + | Ethnic Group | Unknown | + + + Author + + + | Author | [facility] | | | and [place] | + + + | Organization | [facility] | | | and [place] | + + + | Address | Unknown | + + + | Phone | Unavailable | + + + Support + + + + + | Name | Relationship | Address | Phone | + + + + + | Bobbi Ty | [address] | [place] | | | | | [address] | | + + + + + Care Team Providers + +------+ + | Care Tube Sorter Name | Role | Phone | + [...] [address] | | | | | [address] [place], [place] | [address] [place] | | | | | [address] | [place] [address] | | | | | [phone] | [phone] | | | | | | | [...] | | | LAB | | | [place], | | | | | | External [...]
--- OUTSIDE RECORDS SUMMARY | ~2019-04-12 | XMS | Encounter Summary ---
Demographics + + + | Address | [address] | | | [place] [address] | + + + | Home Phone | | + + + | Preferred Language | Unknown | + + + | Marital Status | | + + + | Zoroastrian Affiliation | Unknown | + + + | Race | Unknown | + + + | Ethnic Group | Unknown | + + + Author + + + | Author | [facility] | | | and [place] | + + + | Organization | [facility] | | | and [place] | + + + | Address | Unknown | + + + | Phone | Unavailable | + + + Support + + + + + | Name | Relationship | Address | Phone | + + + + + | Bobbi Ty | [address] | [place] | | | | | [address] | | + + + + + Care Team Providers + +------+ + | Care Civil Laboratory Technician Name | Role | Phone | + +------+ + | Mani Amado | PCP | | | MD | | | + +------+ + Encounter Details +--------+ + + + + | Date | Type | Department | Care Team | Description | +--------+ + + + + | 12/13/ | Imaging | [facility] | Provider, | | | 2017 | Exam | [facility] | [address] | | | | | IMAGING | [address] | | | | | [phone] | [place] [address] | | +--------+ + + + + [...] + +--------+ + + + | CT ABDOMEN PELVIS W | Routin | 12/05/2016 | | Results for this | | CONTRAST | e | 9:20 AM | | procedure are in the | | | | PDT | | results section. | + +--------+ + + + documented in this encounter Results CT Abdomen Pelvis w Contrast (12/05/2016 9:20 AM PDT) + + | Specimen | + + | | + + + + + | Narrative | Performed At | + + + | External films for comparison only - no result from [place]. | [facility] | + + + + +---------+ + + | Performing | Address | City/State/Zipcode | Phone Number | | Organization | | | | + +---------+ + + | [facility] | | | | + +---------+ + + documented in this encounter Visit Diagnoses Not on filedocumented in this encounter"
--- OUTSIDE RECORDS SUMMARY | ~2019-04-12 | XMS | Encounter Summary ---
Demographics + + + | Address | [address] | | | [place] [address] | + + + | Home Phone | | + + + | Preferred Language | Unknown | + + + | Marital Status | | + + + | Evangelical Affiliation | Unknown | + + + | Race | Unknown | + + + | Ethnic Group | Unknown | + + + Author + + + | Author | [facility] | | | and [place] | + + + | Organization | [facility] | | | and [place] | + + + | Address | Unknown | + + + | Phone | Unavailable | + + + Support + + + + + | Name | Relationship | Address | Phone | + + + + + | Bobbi Ty | [address] | [place] | | | | | [address] | | + + + + + Care Team Providers + +------+ + | Care Housing Assistant Property Manager Name | Role | Phone | + [...] [address] | | | | | [phone] | [place] [address] | | +--------+ + + + + [...] for comparison only - no result from [place]. | [facility] | + + + + +---------+ + + | Performing | Address | City/State/Zipcode | Phone Number | | Organization | | | | + +---------+ + + | [facility] | | | | + +---------+ + + documented in this encounter Visit Diagnoses Not on filedocumented in this encounter"
--- OUTSIDE RECORDS SUMMARY | ~2019-04-12 | XMS | Encounter Summary ---
Demographics + + + | Address | [address] | | | [place] [address] | + + + | Home Phone | | + + + | Preferred Language | Unknown | + + + | Marital Status | | + + + | Hindu Affiliation | Unknown | + + + | Race | Unknown | + + + | Ethnic Group | Unknown | + + + Author + + + | Author | [facility] | | | and [place] | + + + | Organization | [facility] | | | and [place] | + + + | Address | Unknown | + + + | Phone | Unavailable | + + + Support + + + + + | Name | Relationship | Address | Phone | + + + + + | Bobbi Ty | [address] | [place] | | | | | [address] | | + + + + + Care Team Providers + +------+ + | Care Production Line Solderer Name | Role | Phone | + [...] [address] | MD Bronson, FACS [address] | [place] arteries of | | | | [place], [place] | [address] [place] | extremities with | | | | [address] | [place] [address] | intermittent | | | | [phone] | [phone] | claudication, | | | | | [...] | | | femoral artery. A 4 [place] vascular sheath was placed. Using a | [...] | | | Over the wires, 4 Belgian sheaths were exchanged for bilateral 6 | [...] | | | arteriotomy is with 6 [place] Angio-Seal devices. Hemostasis | | | wasimmediate. [...] leftcommon femoral artery. A 4 | | [place] vascular sheath was placed. Using a catheterand [...] | | abdominalaorta. Over the wires, 4 [place] sheaths were exchanged for bilateral 6 | [...] the arteriotomy is with 6 | | [place] Angio-Seal devices. Hemostasis wasimmediate.Findings: Ultrasound demonstrate | [...] |closure of the arteriotomy is with 6 [place] Angio-Seal devices. Hemostasis was | |immediate. | [...] Diagnosis | + + | Atherosclerosis of [place] arteries of extremities with intermittent claudication, | | bilateral legs (HCC) - Primary | + + documented in this encounter
--- OUTSIDE RECORDS SUMMARY | ~2019-04-12 | XMS | Encounter Summary ---
Demographics + + + | Address | [address] | | | [place] [address] | + + + | Home Phone | | + + + | Preferred Language | Unknown | + + + | Marital Status | | + + + | Latter-Day Affiliation | Unknown | + + + | Race | Unknown | + + + | Ethnic Group | Unknown | + + + Author + + + | Author | [facility] | | | and [place] | + + + | Organization | [facility] | | | and [place] | + + + | Address | Unknown | + + + | Phone | Unavailable | + + + Support + + + + + | Name | Relationship | Address | Phone | + + + + + | Bobbi Ty | [address] | [place] | | | | | [address] | | + + + + + Care Team Providers + +------+ + | Care Charge Attendant Name | Role | Phone | + +------+ + | Mani Amado PCP | | | MD | | | + +------+ + Encounter Details +--------+ + + + + | Date | Type | Department | Care Team | Description | +--------+ + + + + | 10/05/ | Abstract | [facility] | Chris Pugh | Abnormal weight | | 2017 | | SURGERY [address] | MD Bronson, FACS [address] | loss; Allergic | | | | [place], [place] | [address] [place] | rhinitis due to | | | | [address] | [place] [address] | pollen, unspecified | | | | [phone] | [phone] | chronicity, | | | | | | unspecified | | | | | | seasonality; | | | | | | Infiltrating ductal | | | | | | carcinoma of breast, | | | | | | unspecified | | | | | | laterality (HCC); | | | | | | Chronic obstructive | | | | | | pulmonary disease, | | | | | | unspecified COPD | | | | | | type (HCC); | | | | | | Cystocele with | | | | | | rectocele; | | | | | | Depression with | | | | | | anxiety; Eczema, | | | | | | unspecified type; | | | | | | Generalized anxiety | | | | | | disorder; Familial | | | | | | hyperlipoproteinemia | | | | | | type IIb; | | | | | | Hyperlipoproteinemia | | | | | | type IIb; Lumbar | | | | | | spondylosis; Primary | | | | | | localized | | | | | | osteoarthritis of | | | | | | hip; Persistent | | | | | | insomnia; Rosacea; | | | | | | Vitamin D | | | | | | deficiency; Cataract | | | | | | of both eyes, | | | | | | unspecified cataract | | | | | | type; Hypertension, | | | | | | unspecified type | +--------+ + + + + Social [...] + + + | Blood Pressure | - | - | | + + + + + | Pulse | - | - | | + + + + + | Temperature | - | - | | + + + + + | Respiratory Rate | - | - | | + + + + + | Oxygen Saturation | - | - | | + + + + + | Inhaled Oxygen | - | - | | | Concentration | | | | + + + + + | Weight | 92.1 kg (203 lb) | 09/21/2016 10:02 AM | Per Dr. Amado | | | | PDT | 09/21/2016 progress | | | | | note | + + + + + | Height | 156.2 cm (5' 1.5") | 09/21/2016 10:02 AM | Per Dr. Amado | | | | PDT | 09/21/2016 progress | | | | | note | + + + + + | Body Mass Index | 37.74 | 09/21/2016 10:02 AM | | | | | PDT | | + + + + + documented in this encounter Progress Notes Dottie Harley CMA - 01/11/2017 3:[address] angiography abdominal aorta iliofemoral runoff plus reconstructions 12/27/[address] - [facility] Impression: 1. 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 Flow to the external and int ernal iliac arteries as well as left lower extremity is provided through enlarged collateral vessel formation. Three-vessel runoff to both ankles. 2. Mild to moderate atheromatous narrowing of the proximal portion of the right common alcira c artery.3. 3.4 x 3.9 cm simple appearing cyst in the right ovary. By consensus guidelines, this should be followed with annual ultrasound. Abdomen/Pelvis CT with Contrast 12/05/[address] - [facility] Impression: Atherosclerotic disease, including occlusion of the left common iliac artery and severe sarita nosis of the right iliac artery. CT angiogram of the distal aorta with a runoff to the lower extremities is recommended. Thickened uterine endometrium and right pelvic cystic mass. Pel arturo ultrasound is recommended. Cholelithiasis. Fatty infiltration of the liver. Numerous low er abdominal wall hernias of fat, over a craniocaudal length of 8 cm. documented in this encounter Plan of Treatment Not on filedocumented as of this encounter Visit Diagnoses + + | Diagnosis | + + | Abnormal weight loss Loss of weight | + + | Allergic rhinitis due to pollen, unspecified chronicity, unspecified seasonality | + + | Infiltrating ductal carcinoma of breast, unspecified laterality (HCC) | + + | Chronic obstructive pulmonary disease, unspecified COPD type (HCC) | + + | Cystocele with rectocele Reserved for inherently not codable concepts WITHOUT codable | | children | + + | Depression with anxiety Dysthymic disorder | + + | Eczema, unspecified type | + + | Generalized anxiety disorder | + + | Familial hyperlipoproteinemia type IIb Mixed hyperlipidemia | + + | Hyperlipoproteinemia type IIb Other and unspecified hyperlipidemia | + + | Lumbar spondylosis Lumbosacral spondylosis without myelopathy | + + | Primary localized osteoarthritis of hip | + + | Persistent insomnia Persistent disorder of initiating or maintaining sleep | + + | Rosacea | + + | Vitamin D deficiency Unspecified vitamin D deficiency | + + | Cataract of both eyes, unspecified cataract type | + + | Hypertension, unspecified type | + + documented in this encounter
--- OUTSIDE RECORDS SUMMARY | ~2019-04-12 | XMS | Encounter Summary ---
Demographics + + + | Address | [address] | | | [place] [address] | + + + | Home Phone | | + + + | Preferred Language | Unknown | + + + | Marital Status | | + + + | Catholic Affiliation | Unknown | + + + | Race | Unknown | + + + | Ethnic Group | Unknown | + + + Author + + + | Author | [facility] | | | and [place] | + + + | Organization | [facility] | | | and [place] | + + + | Address | Unknown | + + + | Phone | Unavailable | + + + Support + + + + + | Name | Relationship | Address | Phone | + + + + + | Bobbi Ty | [address] | [place] | | | | | [address] | | + + + + + Care Team Providers + +------+ + | Care City Sanitarian Name | Role | Phone | + [...] | | | | | | | [place] | | | | | | | [...] | | | | | | | [place] | | | | | | | [...] angioplasty | | | | [address] | [address] | | | | | [place] | [place] [address] | | | | | [address] | [phone] | | | | | [phone] | | | +--------+---------+ + + + [...] stools Any unusual bleeding Date Last Reviewed: 01/08/201619992301-3285 [employer]. [address] [place] [address], [place] [address]. All righ ts reserved. This information is [...] EXTREMITY | e | 1:56 PM | [place] arteries [place] | procedure are in the [...] | | | | 12:05 PM | [place] arteries of | | | | | [...] | | | femoral artery. A 4 [place] vascular sheath was placed. Using a | [...] | | | Over the wires, 4 [place] sheaths were exchanged for bilateral 6 | [...] | | | arteriotomy is with 6 [place] Angio-Seal devices. Hemostasis | | | wasimmediate. [...] leftcommon femoral artery. A 4 | | [place] vascular sheath was placed. Using a catheterand [...] | | abdominalaorta. Over the wires, 4 [place] sheaths were exchanged for bilateral 6 | [...] the arteriotomy is with 6 | | [place] Angio-Seal devices. Hemostasis wasimmediate.Findings: Ultrasound demonstrate | [...] |closure of the arteriotomy is with 6 [place] Angio-Seal devices. Hemostasis was | |immediate. | [...] | | GLOMERULAR FILTRATION | mL/min/1.73m2 | [facility] | | | [place] | RATE,ESTIMATED | | MEDICAL | | | | mL/min/1.62a6Wsgu than | | CENTER - | | [...] [address] | [place] | [phone] | | [facility] | | [address] | | | - LABORATORY | | [...] [address] | [place] | [phone] | | [facility] | | [address] | | | - LABORATORY | | [...] [address] | [place] | [phone] | | [facility] | | [address] | | | - LABORATORY | | [...]
--- OUTSIDE RECORDS SUMMARY | ~2019-04-12 | XMS | Clinical Summary ---
Demographics + + + | Address | [address] | | | [place] [address] | + + + | Home Phone | | + + + | Preferred Language | Unknown | + + + | Marital Status | | + + + | Yazdanism Affiliation | Unknown | + + + | Race | Unknown | + + + | Ethnic Group | Unknown | + + + Author + + + | Author | [facility] | | | and [place] | + + + | Organization | [facility] | | | and [place] | + + + | Address | Unknown | + + + | Phone | Unavailable | + + + Support + + + + + | Name | Relationship | Address | Phone | + + + + + | Bobbi Ty | [address] | [place] | | | | | [address] | | + + + + + Care Team Providers + +------+ + | Care Display Maker Name | Role | Phone | + [...] | | /[id number] | | MD at [facility] | | | | | | 34 | | [facility] | | | | | | [...] | | /[id number] | | MD at [facility] | | | | | | 34 | | [facility] | | | | | | [...] | [employer] | [facility] | [id number] | 12/13/19 | | | Medica | [...] | 1946 | [phone] | [place] [address] | | | elizabeth | | | 8 (Home) | | + +--------+ +--------+ + + Advance Directives + + + + + | Type | Date Recorded | Patient | Explanation | | | | Antenna Machine Operator | | + + + + + | Power of | | | | | Exceptional Needs Teacher | | | | + + + + + | Advance | 02/23/2017 | | | | Directive | 8:20 AM | | | + + + + +
--- OUTSIDE RECORDS SUMMARY | ~2019-04-12 | XMS | Encounter Summary ---
Demographics + + + | Address | [address] | | | [place] [address] | + + + | Home Phone | | + + + | Preferred Language | Unknown | + + + | Marital Status | | + + + | Buddhism Affiliation | Unknown | + + + | Race | Unknown | + + + | Ethnic Group | Unknown | + + + Author + + + | Author | [facility] | | | and Kieranana | + + + | Organization | [facility] | | | and Kieranana | + + + | Address | Unknown | + + + | Phone | Unavailable | + + + Support + + + + + | Name | Relationship | Address | Phone | + + + + + | Bobbi Ty | [address] | [place] | | | | | [address] | | + + + + + Care Team Providers + +------+ + | Care Cut Off Saw Tender Metal Name | Role | Phone | + +------+ + PCP | Unavailable | + +------+ + Encounter Details +--------+ + + + + | Date | Type | Department | Care Team | Description | +--------+ + + + + | 06/16/ | [facility] | [facility] | [place], | | | 2006 - | Encounter | MED CTR [facility] | Julio Huber MD [address] | | | | CENTER [address] | JAIME BO | | | 07/07/ | | [place] | [place] [address] | | | 2006 | | [address] | [phone] | | | | | [phone] | | | +--------+ + + + [...]
--- OUTSIDE RECORDS SUMMARY | ~2019-04-12 | XMS | Encounter Summary ---
Demographics + + + | Address | [address] | | | [place] [address] | + + + | Home Phone | | + + + | Preferred Language | Unknown | + + + | Marital Status | | + + + | Baptist Affiliation | Unknown | + + + | Race | Unknown | + + + | Ethnic Group | Unknown | + + + Author + + + | Author | [facility] | | | and Kieranana | + + + | Organization | [facility] | | | and [place]an[place] | + + + | Address | Unknown | + + + | Phone | Unavailable | + + + Support + + + + + | Name | Relationship | Address | Phone | + + + + + | Bobbi Ty | [address] | [place] | | | | | [address] | | + + + + + Care Team Providers + +------+ + | Care Cuff Setter Overlock Name | Role | Phone | + +------+ + | Mani Amado | PCP | | | MD | | | + +------+ + Reason for Visit + + + | Reason | Comments | + + + | New Patient | Stricture of artery. | + + + Evaluate & Treat (Routine) +--------+--------+ + + + + | Status | Reason | Specialty | Diagnoses / | Referred By | Referred To | | | | | Procedures | Contact | Contact | +--------+--------+ + + + + | Closed | | General | Diagnoses | Aneudy, | , | | | | Surgery | Stricture | Mani | Chris Dobson, | | | | | of artery | MD Micah | [address] | | | | | ([facility]) | [address] | | | | | Procedures | Edward Cornelius | [place], | | | | | [place] OFFICE | [place], | [place] [address] | | | | | OUTPATIENT | [place] | Phone: | | | | | NEW [address] | [address] | [phone] | | | | | MINUTES SENIOR INVESTMENT ANALYST | Phone: | Fax: | | | | | | [phone] | [phone] | | | | | | Fax: | | | | | | | [phone] | | +--------+--------+ + + + + Encounter Details +--------+---------+ + + + | Date | Type | Department | Care Team | Description | +--------+---------+ + + + | 01/18/ | Office | [facility] | Chris Pugh | Atherosclerosis of | | 2017 | Visit | SURGERY [address] | MD Bronson, FACS [address] | [place] arteries of | | | | [place], [place] | [address] [place] | extremities with | | | | [address] | [place] [address] | intermittent | | | | [phone] | [phone] | claudication, | | | | | | bilateral legs (HCC) | | | | | | (Primary Dx); | | | | | | Ventral hernia | | | | | | without obstruction | | | | | | or gangrene; Cyst of | | | | | | right ovary | +--------+---------+ + + + Social History [...] + + + | Blood Pressure | 124/60 | 01/18/2017 9:02 AM | | | | | PDT | | + + + + + | Pulse | 77 | 01/18/2017 9:02 AM | | | | | PDT | | + + + + + | Temperature | 36.5 C (97.7 F) | 01/18/2017 9:02 AM | | | | | PDT | | + + + + + | Respiratory Rate | - | - | | + + + + + | Oxygen Saturation | 97% | 01/18/2017 9:02 AM | | | | | PDT | | + + + + + | Inhaled Oxygen | - | - | | | Concentration | | | | + + + + + | Weight | 90.2 kg (198 lb 12.8 | 01/18/2017 9:02 AM | | | | oz) | PDT | | + + + + + | Height | 156.2 cm (5' 1.5") | 01/18/2017 9:02 AM | | | | | PDT | | + + + + + | Body Mass Index | 36.96 | 01/18/2017 9:02 AM | | | | | PDT | | + + + + + documented in this encounter Progress Notes Chris Pugh MD, FACS - 01/18/2017 9:00 AM PDTFormatting of this note might be diff erent from the original. Vascular Surgery Consult Note HISTORY OF PRESENT ILLNESS Ricarda Ty is a 71 y.o. female patient of Mani Amado MD here today. 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 Physician notes: Patient stated she had ruptured appendicitis in 2012 and had surgery [address] Dr. Oreilly. She has a ventral hernia now, which Dr Oreilly plans to fix in the future. On CT of the hernia, was noted to have LEFT common iliac occlusion. ( also 4.5 cm RIGHT ovarian cystic mass and gall stones). States she has problems walking, unsure if its arthritis. Reports LEFT hip pain. This star erika many years ago and is getting worse. If she goes to [facility] she finds leaning on the ca rt helps. On a good day she can walk half a block then LEFT greater then RIGHT hip pain and she has to stop and rest before starting to walk again. Afraid to go uphill due to balance a nd stability. Has had LEFT hip pain for several years and thinks it is progressing. She reports when walking she gets bilateral calf pain. States sometimes she wakes up in the middle of the night with LEFT side abdominal ache. Denies nocturnal foot pain. No gangrene, no foot sores or ulcers. Denies problems standing still. States she has degenerative disc disease and suffers from low back pain. CARDIAC: No pacemaker, no SD or stroke. RISK:Smoked for 50 years, quit 2 years ago. Denies diabetes. No family history of SD's or s trokes RECENT TEST RESULTS and IMAGING: CT angiography abdominal aorta iliofemoral runoff plus [...] over a craniocaudal length of 8 cm. I have reviewed these images and agree with Radiologists findings. RENAL: BUN/Cr On 01/03/2017: 18/1.01 GSR 54. ROMULO Score: 6 ROMULO Risk Score 01/18/2017 Risk for Obstructive Sleep Apnea Suspected Risk for ROMULO Mani Amado MD's notes were reviewed in clinic today. PAST MEDICAL HISTORY Past Medical History: Diagnosis Date Abnormal weight loss Appendicitis Cataract, bilateral Cholelithiasis Cystocele with rectocele Cystocele repair with dermis, rectocele repair with dermis, obturator sling procedure, cys toscopy. [facility] [place] Depression with anxiety Dermatitis, eczematoid Generalized anxiety disorder Hyperlipoproteinemia type IIb Hypertension Incisional hernia with obstruction, without gangrene Infiltrating ductal carcinoma of breast (HCC) Lumbar spondylosis Persistent insomnia Primary localized osteoarthritis of hip Rosacea SBO (small bowel obstruction) Type 2 diabetes mellitus without complication (HCC) Vitamin D deficiency Past Surgical History: Procedure Laterality Date A&P repair with sling procedure APPENDECTOMY 08/28/2012 COLONOSCOPY 12/2003 Hyperplastic polyp CYSTOCELE REPAIR 10/04/2016 Cystocele repair with dermis, rectocele repair with dermis, obturator sling procedure, cys toscopy. - Dr. Sofiya Rodriguez [facility] [place], [place] HYSTEROSCOPY 01/05/2017 with D & C - Thickened endometrial stripe with endometrial polyp. - Dr. Sofiya Osman [facility] [place], [place] MASTECTOMY, RADICAL Right 04/2005 Mastectomy with axillary lymphadenectomy of the right breast, Nodes +05/19 - Dr. Kimani Luna - on Tamoxifen for 5 years, no radiation. WOUND REPAIR 09/14/2012 Primary suture repair of suprapubic midline wound dehisence. - Dr. Corey Rodriguez [facility] [place], [place] Allergies Allergen Reactions Ofloxacin Doxycycline Diarrhea and Nausea And Vomiting Medications: Outpatient Encounter Prescriptions as of 01/18/2017 Medication Sig Dispense Refill acetaminophen-codeine (TYLENOL #3) 300-30 mg per tablet Take 1 tablet by mouth every 4 hours as needed for Pain. albuterol (PROAIR HFA) 90 mcg/puff inhaler Inhale 2 puffs into the lungs 4 times daily. aspirin 81 MG tablet Take 81 mg by mouth Daily. Azelastine HCl (ASTEPRO) 0.15 % nasal spray 2 sprays by Nasal route as needed. Use in e ach nostril as directed. Compression Bandages MISC by Does not apply route. Fitted Compression Sleeve for Lympha ej in right arm. [DISCONTINUED] cyclobenzaprine (FLEXERIL) 10 mg tablet Take 10 mg by mouth 3 times cecil y as needed for Muscle spasms. ergocalciferol (VITAMIN D-2) 50,000 units capsule Take 50,000 Units by mouth Once a wee k. eszopiclone (ESZOPICLONE) 3 MG TABS Take 3 mg by mouth nightly. fenofibrate (LOFIBRA, TRIGLIDE) 160 mg tablet Take 160 mg by mouth Daily. fexofenadine (FRANCHESKA) 180 mg tablet Take 180 mg by mouth Daily. fluticasone (FLONASE) 50 mcg/nasal spray 2 sprays by Nasal route as needed. ibuprofen (ADVIL, MOTRIN) 400 mg tablet Take 400 mg by mouth every 6 hours as needed fo r Pain. [DISCONTINUED] ibuprofen (ADVIL,MOTRIN) 800 MG tablet [DISCONTINUED] minocycline 100 MG tablet Take 100 mg by mouth 2 times daily. [DISCONTINUED] varenicline (CHANTIX CONTINUING MONTH JAMES) 1 MG tablet Take 1 mg by mout h 2 times daily. [DISCONTINUED] venlafaxine (EFFEXOR) 37.5 mg tablet Take 75 mg by mouth 2 times daily. No facility-administered encounter medications on file as of 01/18/2017. Family History Problem Relation Age of Onset Breast cancer Sister Diabetes Sister Ovarian cancer Sister Diabetes Brother Social History: She reports that she quit smoking about 2 years ago. Her smoking use included Cigarettes. S he started smoking about 54 years ago. She has a 52.00 pack-year smoking history. She has ne gisela used smokeless tobacco. She reports that she drinks alcohol. She reports that she does n ot use drugs. REVIEW OF SYSTEMS General: []Weight loss/gain (over 10 lbs) []Fever/chills [x]Night sweats Hematologic: [x]Bleeding/brusing tendencies []Blood transfusion []Anemia Heent: []Vision loss []Hearing loss [x]Sinus problems/nose bleeds [x]Hoarseness Respiratory: []Wheezing [x]Shortness of breath []Cough []Spitting up blood []On oxygen []Use CPAP machine Cardiac: []Chest pain []Palpitations/heart racing [x]Swelling of ankles/hands []Unusual shortness of breath [x]Difficulty sleeping fla t Gastrointestinal: []Nausea/vomiting []Difficulty swallowing []Heartburn []Loss of appetite []Abdominal pain []Stomach Ulcers []Diarrhea []Constipation []Foster k or bloody stools Vascular: []Hernandez/TIAs []Fainting []Difficulty with speech [x]Leg cramps []Pain in feet/legs at rest []Foot ulcers/s ores []Varicose veins []Phlebitis/blood clots Musculoskeletal: [x]Joint stiffness/swelling [x]Join pain []Back pain [x]Arthritis []Gout Urologic: []Blood in urine []Frequent urination at night []Burning/painful urination []Kidney stones []Difficulty urination []Sexual difficulties Neuro/Psychiatric: [x]Headaches []Seizures []Depression []Anxiety attacks []Memory loss or confusion PHYSICAL EXAM Vitals: 01/18/17 0902 BP: 124/60 Pulse: 77 Temp: 36.5 C (97.7 F) TempSrc: Temporal SpO2: 97% Weight: 90.2 kg (198 lb 12.8 oz) Height: 1.562 m (5' 1.5") Body mass index is 36.96 kg/m. General Appearance: Alert, cooperative, no distress, appears stated age Head: Normocephalic, without obvious abnormality Eyes: PERRL, conjunctiva/corneas clear, EOM's intact, vision adequate bilateral Ears: Adequate hearing Nose: No visible lesions Throat: Lips, mucosa, and tongue normal; teeth and gums normal Neck: Supple, symmetrical, no adenopathy, no neck bruits Lungs: Breath sounds are clear to auscultation bilaterally, no wheezes or crackles. Chest Wall: No tenderness or deformity, no pacemaker Heart: Regular rate and rhythm, S1, S2 normal, no murmur. Abdomen: Soft, non-tender, flat, Transverse super umbilical scar, no hernia and Lower midline scar with fascial defect with reducible hernia approximately 4 cm. No bruits Extremities: Extremities normal, atraumatic, no cyanosis, clubbing, or edema. 1+ pitting ed dominga bilaterally . Palpable Pulses*: Femoral Popliteal Dorsalis pedis Post tibial LEFT 0 0 0 0 RIGHT 1-2 0 2 0 Doppler Pulses: LEFT moderate Weak to moderate RIGHT strong strong Neurologic: Cranial nerves II-XII grossly intact, face symmetric, tongue protrudes midline Equal chainstitch binder and plantar flexion, no pronator drift, Gait normal Deep tendon reflexes--quadriceps 1/5 and symmetric. Assessment /Plan 1. Atherosclerosis of [place] arteries of extremities with intermittent claudication, bilate ral legs (HCC) 2. Ventral hernia without obstruction or gangrene Dr Oreilly will repair this in the futur e. 3. Cyst of right ovary Blaster Helper appointment pending. LEFT common iliac occlusion And RIGHT common iliac stenosis with severe LEFT > RIGHT hip claudication: I believe patient is a candidate for LEFT and RIGHT common iliac angioplasty, she would lik e to have IR procedure performed here at [facility]. Next appointment is Feb 23, 2017. If angioplasty is not possible she would need a RIGHT femoral artery to LEFT femoral artery bypass. Return to clinic in early March Continue aspirin daily. Consider adding a statin. Chris Pugh MD, FACS Vascular and General Surgery CC: Mani Amado MDElectronically signed by Chris Pugh MD, FACS at 7 10:13 AM PDTdocumented in this encounter Plan of Treatment Not on filedocumented as of this encounter Visit Diagnoses + + | Diagnosis | + + | Atherosclerosis of [place] arteries of extremities with intermittent claudication, | | bilateral legs (HCC) - Primary | + + | Ventral hernia without obstruction or gangrene Ventral hernia, unspecified, without | | mention of obstruction or gangrene | + + | Cyst of right ovary Other and unspecified ovarian cyst | + + documented in this encounter
--- OUTSIDE RECORDS SUMMARY | ~2019-04-12 | XMS | Encounter Summary ---
Demographics + + + | Address | [address] | | | [place] [address] | + + + | Home Phone | | + + + | Preferred Language | Unknown | + + + | Marital Status | | + + + | Hindu Affiliation | Unknown | + + + | Race | Unknown | + + + | Ethnic Group | Unknown | + + + Author + + + | Author | [facility] | | | and Kieranana | + + + | Organization | [facility] | | | and [place] | + + + | Address | Unknown | + + + | Phone | Unavailable | + + + Support + + + + + | Name | Relationship | Address | Phone | + + + + + | Bobbi Ty | [address] | [place] | | | | | [address] | | + + + + + Care Team Providers + +------+ + | Care Senior System Operator Name | Role | Phone | + [...] [address] | | | | | [address] [place], [place] | [address] [place] | | | | | [address] | [place] [address] | | | | | [phone] | [phone] | | | | | | | [...]
--- OUTSIDE RECORDS SUMMARY | ~2019-04-12 | XMS | Encounter Summary ---
Demographics + + + | Address | [address] | | | [place] [address] | + + + | Home Phone | | + + + | Preferred Language | Unknown | + + + | Marital Status | | + + + | Samaritan Affiliation | Unknown | + + + | Race | Unknown | + + + | Ethnic Group | Unknown | + + + Author + + + | Author | [facility] | | | and Kieranana | + + + | Organization | [facility] | | | and [place] | + + + | Address | Unknown | + + + | Phone | Unavailable | + + + Support + + + + + | Name | Relationship | Address | Phone | + + + + + | Bobbi Ty | [address] | [place] | | | | | [address] | | + + + + + Care Team Providers + +------+ + | Care Pickling Grader Name | Role | Phone | + [...] loss; Allergic | | | | [place], [place] | [address] [place] | rhinitis due to | | | | [address] | [place] [address] | pollen, unspecified | | | | [phone] | [phone] | chronicity, | | | | | [...]
--- OUTSIDE RECORDS SUMMARY | ~2019-04-12 | XMS | Encounter Summary ---
Demographics + + + | Address | [address] | | | [place] [address] | + + + | Home Phone | | + + + | Preferred Language | Unknown | + + + | Marital Status | | + + + | Hinduism Affiliation | Unknown | + + + | Race | Unknown | + + + | Ethnic Group | Unknown | + + + Author + + + | Author | [facility] | | | and Kireanana | + + + | Organization | [facility] | | | and [place] | + + + | Address | Unknown | + + + | Phone | Unavailable | + + + Support + + + + + | Name | Relationship | Address | Phone | + + + + + | Bobbi Ty | [address] | [place] | | | | | [address] | | + + + + + Care Team Providers + +------+ + | Care Cold Food Packer Name | Role | Phone | + +------+ + | Mani Amado PCP | | | MD | | | + +------+ + Encounter Details +--------+ + + + + | Date | Type | Department | Care Team | Description | +--------+ + + + + | /30/ | Orders Only | [facility] | Chris Pugh | Atherosclerosis of | | 2017 | | SURGERY [address] | MD Bronson, FACS [address] | [place] arteries of | | | | [place], [place] | [address] [place] | extremities with | | | | [address] | [place] [address] | intermittent | | | | [phone] | [phone] | claudication, | | | | | [...] as of this encounter Plan of Treatment + +------+--------+ + + | Name | Type | Priori | Associated Diagnoses | Order Schedule | | | | ty | | | + +------+--------+ + + | Basic Metabolic | Lab | Routin | Atherosclerosis of | 1 Occurrences | | Panel | | e | [place] arteries of | starting 02/05/2017 | | | | | extremities with | until 02/05/2018 | | | | | intermittent | | | | | | claudication, | | | | | | bilateral legs (HCC) | | + +------+--------+ + + documented as of this encounter Visit Diagnoses + + | Diagnosis | + + | Atherosclerosis of [place] arteries of extremities with intermittent claudication, | | bilateral legs (HCC) - Primary | + + documented in this encounter"
--- OUTSIDE RECORDS SUMMARY | ~2019-04-12 | XMS | Encounter Summary ---
Demographics + + + | Address | [address] | | | [place] [address] | + + + | Home Phone | | + + + | Preferred Language | Unknown | + + + | Marital Status | | + + + | Nondenominational Affiliation | Unknown | + + + | Race | Unknown | + + + | Ethnic Group | Unknown | + + + Author + + + | Author | and [facility] | | | and [place] | + + + | Organization | [facility] | | | and [place] | + + + | Address | Unknown | + + + | Phone | Unavailable | + + + Support + + + + + | Name | Relationship | Address | Phone | + + + + + | Bobbi Ty | [address] | [place] | | | | | [address] | | + + + + + Care Team Providers + +------+ + | Care A R Collections Rep Name | Role | Phone | + [...] [address] | | | | | ([facility]) | [address] | | | | | Procedures | Edward Cornelius | [place], | | | | | [place] OFFICE | [place], | [place] [address] | | | | | OUTPATIENT | [place] | Phone: | | | | | [address] | [address] | [phone] | | | | | MINUTES LEATHER GOODS ASSEMBLER | Phone: | Fax: | | | | | | [phone] | [phone] | | | | | | Fax: | | | | | | | [phone] | | +--------+--------+ + + + + Encounter Details +--------+---------+ + + + | Date | Type | Department | Care Team | Description | +--------+---------+ + + + | 01/18/ | Office | [facility] | Chris Pugh | Atherosclerosis of | | 2017 | Visit | SURGERY [address] | MD Bronson, FACS [address] | [place] arteries of | | | | [place], [place] | [address] [place] | extremities with | | | | [address] | [place] [address] | intermittent | | | | [phone] | [phone] | claudication, | | | | | [...] here today. 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 Physician notes: Patient stated she had [...] is getting worse. If she goes to [facility] she finds leaning on the ca [...] low back pain. CARDIAC: No pacemaker, no IL or stroke. RISK:Smoked for 50 years, quit 2 years ago. Denies diabetes. No family history of IL's or s trokes RECENT TEST RESULTS and [...] procedure, cys tosc[facility]. [facility] [place] Depression with anxiety Dermatitis, eczematoid Generalized [...] procedure, cys toscopy. - Dr. Sofiya Rodriguez [facility] [place], [place] HYSTEROSCOPY 01/05/2017 with D & C - Thickened endometrial stripe with endometrial polyp. - Dr. Sofiya Osman [place], [place] MASTECTOMY, RADICAL Right 04/2005 Mastectomy with axillary lymphadenectomy of the right breast, Nodes +05/19 - Dr. Kimani Luna - on Tamoxifen for 5 years, no radiation. WOUND REPAIR 09/14/2012 Primary suture repair of suprapubic midline wound dehisence. - Dr. Corey Rodriguez [facility] [place], [place] Allergies Allergen Reactions Ofloxacin [...] intact, face symmetric, tongue protrudes midline Equal vending machine coin collector and plantar flexion, no pronator drift, Gait normal Deep tendon reflexes--quadriceps 1/5 and symmetric. Assessment /Plan 1. Atherosclerosis of [place] arteries of extremities with intermittent claudication, bilate ral legs (HCC) 2. Ventral hernia without obstruction or gangrene Dr Oreilly will repair this in the futur e. 3. Cyst of right ovary Compo Conveyor Operator appointment pending. 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 Next appointment is Feb 23, 2017. [...] Diagnosis | + + | Atherosclerosis of [place] arteries of extremities with intermittent claudication, | | bilateral legs (HCC) - Primary | + + | Ventral hernia without obstruction or gangrene Ventral hernia, unspecified, without | | mention of obstruction or gangrene | + + | Cyst of right ovary Other and unspecified ovarian cyst | + + documented in this encounter
--- OUTSIDE RECORDS SUMMARY | ~2019-04-12 | XMS | Encounter Summary ---
Demographics + + + | Address | [address] | | | [place] [address] | + + + | Home Phone | | + + + | Preferred Language | Unknown | + + + | Marital Status | | + + + | Mandaeism Affiliation | Unknown | + + + | Race | Unknown | + + + | Ethnic Group | Unknown | + + + Author + + + | Author | [facility] | | | and Kieranana | + + + | Organization | [facility] | | | and Kieranana | + + + | Address | Unknown | + + + | Phone | Unavailable | + + + Support + + + + + | Name | Relationship | Address | Phone | + + + + + | Bobbi Ty | CIR[address] | [place] | | | | | [address] | | + + + + + Care Team Providers + +------+ + | Care Coin Machine Servicer Repairer Name | Role | Phone | + +------+ + | Mani Amado | PCP | | | MD | | | + +------+ + Reason for Visit + + + | Reason | Comments | + + + | Follow-up | Bilateral common iliac stenosis | + + + Evaluate & Treat [...] | of artery | MD Micah | , FACS [address] | | | | | ([facility]) | [address] | | | | | Procedures | Edward Cornelius | [place], | | | | | [place] OFFICE | [place] | [place] [address] | | | | | OUTPATIENT | [place] | Phone: | | | | | NEW [address] | [address] | [phone] | | | | | MINUTES WEB ANALYTICS SPECIALIST | Phone: | Fax: | | | | | | [phone] | [phone] | | | | | | Fax: | | | | | | | [phone] | | +--------+--------+ + + + + Encounter Details +--------+---------+ + + + | Date | Type | Department | Care Team | Description | +--------+---------+ + + + | 03/12/ | Office | [facility] | Chris Pugh | Atherosclerosis of | | 2017 | Visit | SURGERY [address] | MD Bronson, FACS [address] | [place]bler arteries of | | | | [place], [place] | [address] [facility] | extremities with | | | | [address] | [place] [address] | intermittent | | | | [phone] | [phone] | claudication, | | | | | [...] + + + + | Height | - | - | | + + + + + | Body Mass Index | 35.77 | 02/23/2017 9:04 AM | | | | | PST | | + + + + + documented in this encounter Progress Notes Chris Pugh MD, FACS - 03/12/2017 1:50 PM PSTFormatting of this note might be diff erent from the original. HISTORY OF PRESENT ILLNESS Patient Identification: Ricarda Ty 1945 Is a 71 y.o. female , a patient of Mani Amado MD. Patient is here alone. S: Date of surgery: 02/23/2017. Title of surgery: Angio Upper/Lower Extremity @ [facility] C by Dr. Quinonez. Physician notes: Patient arrives to follow up on February 23, [address] Quinonez. Procedure in cluded Intravenous conscious sedation, Ultrasound-guided bilateral common femoral micropunct ure access, Pelvic arteriogram, Crossing of occluded left common iliac artery. Kissing commo n iliac artery, stents with post stenting balloon dilatation arteriogram, Percutaneous closu re of bilateral common femoral arteriotomy is utilizing and [place] Angio-Seal device. Since the procedure she reports her LEFT leg has gotten better. She is able to walk further and go grocery shopping without pain. She does note pain in her LEFT leg when she "side sarita ps" DATA Angio Upper/Lower Extremity on 02/23/2017 Procedures: 1. Intravenous conscious sedation 2. Ultrasound-guided bilateral common femoral micropuncture access 3. Pelvic arteriogram 4. Crossing of occluded left common iliac artery. Kissing common iliac artery stents with post stenting balloon dilatation arteriogram 5. Percutaneous closure of bilateral common femoral arteriotomy is utilizing 6 [place] Angio-Seal device Findings: Ultrasound demonstrate patent bilateral common femoral arteries. Initial left iliac arteriogram demonstrates occlusion of the common iliac artery. Initial pelvic arteriogram from the right groin approach demonstrates high-grade stenosis in the proximal to mid right common iliac artery with occlusion of the left common iliac artery from its origin. Following successful crossing of the left iliac occlusion and stent deployment, brisk antegrade flow is seen through the bilateral iliac arteries with no complicating factors. IMPRESSION - Successful reconstitution of occluded left common iliac artery with placement of kissing bilateral common iliac artery stents as described Dictated and Signed by: Nikolas Quinonez MD Electronically signed: 02/23/2017 2:02 PM PAST MEDICAL HISTORY Past Medical History: Diagnosis Date Abnormal weight loss Appendicitis Cataract, bilateral Cholelithiasis Cystocele with rectocele Cystocele repair with dermis, rectocele repair with dermis, obturator sling procedure, cys toscopy. - Dr. Sofiya Meade - [facility] [place], [place] Depression with anxiety Dermatitis, eczematoid Generalized [...] sling procedure, cys toscopy. - Dr. Sofiya Meade - [facility], [place] HYSTEROSCOPY 01/05/2017 with D & C - Thickened endometrial stripe with endometrial polyp. - Dr. Sofiya Meade - [facility], [place] IR PROCEDURE Left 02/23/2017 Procedure: Left Common Iliac angioplasty; Surgeon: Nikolas Quinonez MD; Location: [facility] INTE RVENTIONAL RADIOLOGY MASTECTOMY, RADICAL Right 04/2005 Mastectomy with axillary lymphadenectomy of the right breast, Nodes +05/19 - Dr. Kimani Luna - on Tamoxifen for 5 years, no radiation. WOUND REPAIR 09/14/2012 Primary suture repair of suprapubic midline wound dehisence. - Dr. Corey Oreilly - [facility] [place], [place] Allergies Allergen Reactions Ofloxacin Eyes infected and red. Tape [Adhesive & Tape] Redness, rash, raw Doxycycline Diarrhea and Nausea And Vomiting Medications: Outpatient Encounter Prescriptions as of 03/12/2017 Medication Sig Dispense Refill albuterol (PROAIR HFA) 90 mcg/puff inhaler Inhale 2 puffs into the lungs as needed for Wheezing. [DISCONTINUED] aspirin 81 MG tablet Take 81 mg by mouth Daily. Forgets often Azelastine HCl (ASTEPRO) 0.15 % nasal spray 2 sprays by Nasal route as needed. Use in e ach nostril as directed. cetirizine (ZYRTEC) 10 mg tablet Take 10 mg by mouth Daily. clopidogrel (PLAVIX) 75 mg tablet Take 75 mg by mouth Daily. [DISCONTINUED] Compression Bandages MISC by Does not apply route. 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 ergocalciferol (VITAMIN D-2) 50,000 units capsule Take 50,000 Units by mouth Once a wee k. eszopiclone (ESZOPICLONE) 3 MG TABS Take 3 mg by mouth nightly. fenofibrate (LOFIBRA, TRIGLIDE) 160 mg tablet Take 160 mg by mouth Daily. fexofenadine (FRANCHESKA) 180 mg tablet Take 180 mg by mouth as needed. fluticasone (FLONASE) 50 mcg/nasal spray 2 sprays by Nasal route as needed. [DISCONTINUED] ibuprofen (ADVIL, MOTRIN) 400 mg tablet Take 800 mg by mouth every 6 lorie rs as needed for Pain. ibuprofen (ADVIL,MOTRIN) 800 MG tablet Take 800 mg by mouth every 6 hours as needed for Pain. No facility-administered encounter medications on file as of 03/12/2017. Family History Problem Relation Age of Onset [...] that she does n ot use drugs. PHYSICAL EXAM Vitals: 03/12/17 1415 Pulse: 75 Temp: 36.1 C (97 F) TempSrc: Temporal SpO2: 95% Weight: 88.7 kg (195 lb 8.8 oz) Body mass index is 35.77 kg/m. PE: Extremities: Extremities normal, atraumatic, no cyanosis, clubbing, or edema No gangrene or ulceration Palpable Pulses*: Femoral Popliteal Dorsalis pedis Post tibial LEFT 2+ 2+ RIGHT 1+ 1+ Doppler Pulses: LEFT RIGHT strong ASSESSMENT / PLAN Assessment/Plan: Ricarda was seen today for follow-up. 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 Continue one aspirin daily. Patient to resume diet and activities as tolerated. Patient to follow with primary care. I will be available should future surgical complications develop. I appreciate having been involved in the care of this patient. Chris Pugh MD, FACS Vascular and General Surgery I Charisse Loredo am acting as a scribe on behalf of, and in the presence of Chris francisco MD, FACS. I have reviewed and edited this note. Charisse Loredo CMA 03/12/17 IChris MD, FACS, personally performed the services described in this docume ntation, as scribed by Charisse Loredo CMA in my presence, and it is both accurate and complet e. Charisse Loredo CMA 03/12/2017 14:30 documented i n this encounter Plan of Treatment Not on filedocumented as of this encounter Visit Diagnoses + + | Diagnosis | + + | Atherosclerosis of ambler arteries of extremities with intermittent claudication, | | bilateral legs (HCC) - Primary | + + | Ventral hernia without obstruction or gangrene Ventral hernia, unspecified, without | | mention of obstruction or gangrene | + + | Cyst of right ovary Other and unspecified ovarian cyst | + + documented in this encounter
--- OUTSIDE RECORDS SUMMARY | ~2019-04-12 | XMS | Encounter Summary ---
Demographics + + + | Address | [address] | | | [place] [address] | + + + | Home Phone | | + + + | Preferred Language | Unknown | + + + | Marital Status | | + + + | Yazidi Affiliation | Unknown | + + + | Race | Unknown | + + + | Ethnic Group | Unknown | + + + Author + + + | Author | [facility] | | | and Kieranana | + + + | Organization | [facility] | | | and Kieranana | + + + | Address | Unknown | + + + | Phone | Unavailable | + + + Support + + + + + | Name | Relationship | Address | Phone | + + + + + | Bobbi Ty | [address] | [place] | | | | | [address] | | + + + + + Care Team Providers + +------+ + | Care Supervisor Cigar Making Machine Name | Role | Phone | + +------+ + PCP | Unavailable | + +------+ + Encounter Details +--------+ + + + + | Date | Type | Department | Care Team | Description | +--------+ + + + + | 06/19/ | [facility] | [place] | [place], | | | 2005 - | Encounter | MED CTR GENERIC OP | Julio Huber MD [address] | | | | | CONV DEPT [address] | [place] | | | 07/08/ | | [place], | [place] [address] | | | 2005 | | [place] [address] | [phone] | | | | | [phone] | | | +--------+ + + + [...]
--- OUTSIDE RECORDS SUMMARY | ~2019-04-12 | XMS | Encounter Summary ---
Demographics + + + | Address | [address] | | | [place] [address] | + + + | Home Phone | | + + + | Preferred Language | Unknown | + + + | Marital Status | | + + + | Zoroastrian Affiliation | Unknown | + + + | Race | Unknown | + + + | Ethnic Group | Unknown | + + + Author + + + | Author | [facility] | | | and [place]ieranana | + + + | Organization | [facility] | | | and [place] | + + + | Address | Unknown | + + + | Phone | Unavailable | + + + Support + + + + + | Name | Relationship | Address | Phone | + + + + + | Bobbi Ty | [address] | [place] | | | | | [address] | | + + + + + Care Team Providers + +------+ + | Care Quarter Inspector Name | Role | Phone | + [...] [address] | | | | | [phone] | [place] [address] | | +--------+ + + + + [...] for comparison only - no result from [facility]. | | + + + + +---------+ + + | Performing | Address | City/State/Zipcode | Phone Number | | Organization | | | | + +---------+ + + | [facility] | | | | + +---------+ + + documented in this encounter Visit Diagnoses Not on filedocumented in this encounter"
--- OUTSIDE RECORDS SUMMARY | ~2019-04-12 | XMS | Encounter Summary ---
Demographics + + + | Address | [address] | | | [place] [address] | + + + | Home Phone | | + + + | Preferred Language | Unknown | + + + | Marital Status | | + + + | Sikhism Affiliation | Unknown | + + + | Race | Unknown | + + + | Ethnic Group | Unknown | + + + Author + + + | Author | [facility] | | | and Kieranana | + + + | Organization | [facility] | | | and [place]an[place] | + + + | Address | Unknown | + + + | Phone | Unavailable | + + + Support + + + + + | Name | Relationship | Address | Phone | + + + + + | Bobbi Ty | [address] | [place] | | | | | [address] | | + + + + + Care Team Providers + +------+ + | Care Machine Made Shoe Unit Worker Name | Role | Phone | + +------+ + PCP | Unavailable | + +------+ + Encounter Details +--------+ + + + + | Date | Type | Department | Care Team | Description | +--------+ + + + + | 06/19/ | [facility] | [facility] | [place], | | | 2005 - | Encounter | MED CTR GENERIC OP | Julio Huber MD [address] | | | | | CONV DEPT [address] | [place] | | | 07/08/ | | [place], | [place] [address] | | | 2005 | | [place] [address] | [phone] | | | | | [phone] | | | +--------+ + + + [...]
--- OUTSIDE RECORDS SUMMARY | ~2019-04-12 | XMS | Encounter Summary ---
Demographics + + + | Address | [address] | | | [place] [address] | + + + | Home Phone | | + + + | Preferred Language | Unknown | + + + | Marital Status | | + + + | Worship Affiliation | Unknown | + + + | Race | Unknown | + + + | Ethnic Group | Unknown | + + + Author + + + | Author | [facility] | | | and Kieranana | + + + | Organization | [facility] | | | and [place]anana | + + + | Address | Unknown | + + + | Phone | Unavailable | + + + Support + + + + + | Name | Relationship | Address | Phone | + + + + + | Bobbi Ty | [address] | [place] | | | | | [address] | | + + + + + Care Team Providers + +------+ + | Care Operations Manager Station Name | Role | Phone | + [...] | | | | | | | [place] | | | | | | | [...] | | | | | | | [place] | | | | | | | [...] +--------+--------+ + + + + Encounter Details +--------+ + + + + | Date | Type | Department | Care Team | Description | +--------+ + + + + | 02/23/ | [facility] | [facility] | Nikolas Quinonez MD | Atherosclerosis of | | 2017 | Encounter | MED CTR IR INTRA OP | [address] | [place] arteries of | | | | [address] | [place] [address] [address] | extremities with | | | | [place], [place] | [place] [address] | intermittent | | | | [address] | [phone] | claudication, | | | | [phone] | | bilateral legs (HCC) | +--------+ + + + + Social [...] stools Any unusual bleeding Date Last Reviewed: 01/08/201619990609-3130 [employer]. [address] [place] [address]. All righ ts reserved. This information is [...] EXTREMITY | e | 1:56 PM | [place] arteries of | procedure are in the [...] | | | | 12:05 PM | [place] arteries of | | | | | [...] | | | femoral artery. A 4 Dutch vascular sheath was placed. Using a | [...] | | | Over the wires, 4 Dutch sheaths were exchanged for bilateral 6 | [...] | | | arteriotomy is with 6 Dutch Angio-Seal devices. Hemostasis | | | wasimmediate. [...] leftcommon femoral artery. A 4 | | Dutch vascular sheath was placed. Using a catheterand [...] | | abdominalaorta. Over the wires, 4 Dutch sheaths were exchanged for bilateral 6 | [...] the arteriotomy is with 6 | | Dutch Angio-Seal devices. Hemostasis wasimmediate.Findings: Ultrasound demonstrate | [...] |closure of the arteriotomy is with 6 Dutch Angio-Seal devices. Hemostasis was | |immediate. | [...] | | | | | | [facility] | | | | | | MEDICAL | | | | | | CENTER - | | | | | | LABORATORY | | + + + + + + | Anion Gap | 11 | 3 - 16 mmol/L | [facility] | | | | [facility] | [facility] | | | | | | MEDICAL | | | | | | CENTER - | | | | | | LABORATORY | | + + + + + + | Glucose | 118 (H) | 70 - 109 mg/dL | [facility] | | | | | | [facility] | | | | | | MEDICAL | | | | | | CENTER - | | | | | | LABORATORY | | + + + + + + | BUN | 17 | 7 - 18 mg/dL | [facility] | | | | | | [facility] | | | | [...] not | 55 (L)Comment: | >=60 | [facility] | | | | GLOMERULAR FILTRATION | mL/min/1.73m2 | [facility] | | | [place] | RATE,ESTIMATED | | MEDICAL | | | | mL/min/1.78l1Nixe than | | CENTER - | | [...] | | | | | mg/dL | [facility] | | | | | | MEDICAL [...] | + + + + + | [facility] | [address] | [place] | [phone] | | [facility] | | [address] | | | - LABORATORY | | [...] [address] | [place] | [phone] | | [facility] | | [address] | | | - LABORATORY | | [...] | | | | | | [facility] | | | | | | MEDICAL | | | | | | CENTER - | | | | | | LABORATORY | | + + + + + + | RBC | 4.93 | 3.70 - 5.20 | [facility] | | | | | M/uL | [facility] | | | | | | MEDICAL | | | | | | CENTER - | | | | | | LABORATORY | | + + + + + + | Hemoglobin | 14.7 | 11.5 - 16.0 | [facility] | | | | | g/dL | [facility] | | | | [...] [facility] | | | | | | [facility] | | | | | [...] | Neutrophils | | K/uL | [facility] | | | | | | MEDICAL | | | | | | CENTER - | | | | | | LABORATORY | | + + + + + + | Absolute | 3.40 (H) | 0.60 - 3.20 | [facility] | | | Lymphocytes | | K/uL | [facility] | | | | | | MEDICAL | | | | | | CENTER - | | | | | | LABORATORY | | + + + + + + | Absolute | 1.00 | 0.00 - 1.00 | [facility] | | | Monocytes | | K/uL | [facility] | | | | | | MEDICAL | | | | | | CENTER - | | | | | | LABORATORY | | + + + + + + | Absolute | 0.90 (H) | 0.00 - 0.40 | [facility] | | | Eosinophils | | K/uL | [facility] | | | | | | MEDICAL | | | | | | CENTER - | | | | | | LABORATORY | | + + + + + + | Absolute | 0.00 | 0.00 - 0.10 | [facility] | | | Basophils | | K/uL | [facility] | | | | | [...] [address] | [place] | [phone] | | [facility] | | [address] | | | - LABORATORY | | | | + + + + + documented in this encounter Visit Diagnoses + + | Diagnosis | + + | Atherosclerosis of [place] arteries of extremities with intermittent claudication, | | bilateral legs (HCC) | + + documented in this encounter Administered Medications + +---------+ [...] mg | | | | PRN, Starting Sun02/23/17 at | | 17 1:53 | | [...] | lidocaine 1% injection | Given | 20 | 4 mLs | | Surgical | | Infiltration, PRN, Starting Fri | | 17 12:27 | | | Site | | 02/23/17 at 1217 | | PM PST | | | | + +-------+ +-------+---+ + +-------+ +-------+---+ + | Given | 20 | 5 mLs | | Surgical | [...] 17 1:09 | | | | | 17 at 1213 | | PM PST | [...]
--- OUTSIDE RECORDS SUMMARY | ~2019-04-12 | XMS | Encounter Summary ---
Demographics + + + | Address | [address] | | | [place] [address] | + + + | Home Phone | | + + + | Preferred Language | Unknown | + + + | Marital Status | | + + + | Pentecostal Affiliation | Unknown | + + + | Race | Unknown | + + + | Ethnic Group | Unknown | + + + Author + + + | Author | [facility] | | | and [place]anana | + + + | Organization | [facility] | | | and [place] | + + + | Address | Unknown | + + + | Phone | Unavailable | + + + Support + + + + + | Name | Relationship | Address | Phone | + + + + + | Bobbi Ty | [address] | [place] | | | | | [address] | | + + + + + Care Team Providers + +------+ + | Care Bearing Inspector Name | Role | Phone | [...] [address] | MD Bronson, FACS [address] | [place] arteries of | | | | [place], [place] | [address] [place] | extremities with | | | | [address] | [place] [address] | intermittent | | | | [phone] | [phone] | claudication, | | | | | [...] | | Panel | | e | [place] arteries of | starting 02/05/2017 | | | | | extremities with | until 02/05/2018 | | | | | intermittent | | | | | | claudication, | | | | | | bilateral legs (HCC) | | + +------+--------+ + + documented as of this encounter Visit Diagnoses + + | Diagnosis | + + | Atherosclerosis of [place] arteries of extremities with intermittent claudication, | | bilateral legs (HCC) - Primary | + + documented in this encounter"
--- OUTSIDE RECORDS SUMMARY | ~2019-04-12 | XMS | Encounter Summary ---
Demographics + + + | Address | [address] | | | [place] [address] | + + + | Home Phone | | + + + | Preferred Language | Unknown | + + + | Marital Status | | + + + | Sabianist Affiliation | Unknown | + + + | Race | Unknown | + + + | Ethnic Group | Unknown | + + + Author + + + | Author | [facility] | | | and Kieranana | + + + | Organization | [facility] | | | and [place] | + + + | Address | Unknown | + + + | Phone | Unavailable | + + + Support + + + + + | Name | Relationship | Address | Phone | + + + + + | Bobbi Ty | [address] | [place] | | | | | [address] | | + + + + + Care Team Providers + +------+ + | Care Application Security Specialist Name | Role | Phone | [...] FACS [address] | | | | | ([facility]) | [address] | | | | | Procedures | Edward Cornelius | [place], | | | | | [place] OFFICE | [place] | [place] [address] | | | | | OUTPATIENT | [place] | Phone: | | | | | NEW [address] | [address] | [phone] | | | | | MINUTES BILLING ADJUDICATOR | Phone: | Fax: | | | | | | [phone] | [phone] | | | | | | Fax: | | | | | | | [phone] | | +--------+--------+ + + + + Encounter Details +--------+---------+ + + + | Date | Type | Department | Care Team | Description | +--------+---------+ + + + | 03/12/ | [facility] | [facility] | Chris Pugh | Atherosclerosis of | | 2017 | Visit | SURGERY [address] | MD Bronson, FACS [address] | [place] arteries of | | | | [place], [place] | [address] [facility] | extremities with | | | | [address] | [place] [address] | intermittent | | | | [phone] | [phone] | claudication, | | | | | [...] Title of surgery: Angio Upper/Lower Extremity @ [facility] C by Dr. Quinonez. Physician notes: Patient [...] femoral arteriotomy is utilizing and Citizen [place] Angio-Seal device. Since the procedure she reports [...] femoral arteriotomy is utilizing 6 Citizen [place] Angio-Seal device Findings: Ultrasound demonstrate patent bilateral [...] toscopy. - Dr. Sofiya Meade - [facility] [place], [place] Depression with anxiety Dermatitis, eczematoid [...] cys toscopy. - Dr. Sofiya Meade - [facility], [place] HYSTEROSCOPY 01/05/2017 with D & C - Thickened endometrial stripe with endometrial polyp. - Dr. Sofiya Meade - [facility], [place] IR PROCEDURE Left 02/23/2017 Procedure: Left Common Iliac angioplasty; Surgeon: Nikolas Quinonez MD; Location: [facility] INTE RVENTIONAL RADIOLOGY MASTECTOMY, RADICAL Right 04/2005 Mastectomy with axillary lymphadenectomy of the right breast, Nodes +05/19 - Dr. Kimani Luna - on Tamoxifen for 5 years, no radiation. WOUND REPAIR 09/14/2012 Primary suture repair of suprapubic midline wound dehisence. - Dr. Corey Oreilly - [facility] [place] Allergies Allergen Reactions Ofloxacin Eyes [...] all orders for this visit: Atherosclerosis of [place] arteries of extremities with intermittent claudication, bilateral [...] Diagnosis | + + | Atherosclerosis of [place] arteries of extremities with intermittent claudication, | | bilateral legs (HCC) - Primary | + + | Ventral hernia without obstruction or gangrene Ventral hernia, unspecified, without | | mention of obstruction or gangrene | + + | Cyst of right ovary Other and unspecified ovarian cyst | + + documented in this encounter
--- OUTSIDE RECORDS SUMMARY | ~2019-04-12 | XMS | Encounter Summary ---
Demographics + + + | Address | [address] | | | [place] [address] | + + + | Home Phone | | + + + | Preferred Language | Unknown | + + + | Marital Status | | + + + | Roman Catholic Affiliation | Unknown | + + + | Race | Unknown | + + + | Ethnic Group | Unknown | + + + Author + + + | Author | [facility] | | | and Kieranana | + + + | Organization | [facility] | | | and Kieranana | + + + | Address | Unknown | + + + | Phone | Unavailable | + + + Support + + + + + | Name | Relationship | Address | Phone | + + + + + | Bobbi Ty | [place] | [place] | | | | | [address] | | + + + + + Care Team Providers + +------+ + | Care Tint Layer Name | Role | Phone | + [...] [address] | | | | | [address] [place], [place] | [address] [place] | | | | | [address] | [place] [address] | | | | | [phone] | [phone] | | | | | | | [...]
--- OUTSIDE RECORDS SUMMARY | ~2019-04-12 | XMS | Encounter Summary ---
Demographics + + + | Address | [address] | | | [place] [address] | + + + | Home Phone | | + + + | Preferred Language | Unknown | + + + | Marital Status | | + + + | Jehovah'S Witness Affiliation | Unknown | + + + | Race | Unknown | + + + | Ethnic Group | Unknown | + + + Author + + + | Author | [facility] | | | and Kieranana | + + + | Organization | [facility] | | | and Kieranana | + + + | Address | Unknown | + + + | Phone | Unavailable | + + + Support + + + + + | Name | Relationship | Address | Phone | + + + + + | Bobbi Ty | [address] | [place] | | | | | [address] | | + + + + + Care Team Providers + +------+ + | 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 | Role | Phone | + [...] | | | | | | | upper mattaponi | | | | | | | [...] | | | | | | | upper mattaponi | | | | | | | [...] + + + + | 02/23/ | [facility] | [facility] | Nikolas Quinonez MD | Atherosclerosis of | | 2017 | Encounter | MED CTR IR INTRA OP | [address] | upper mattaponi arteries of | | | | [address] | [address] | extremities with | | | | [place], [place] | [place] [address] | intermittent | | | | [address] | [phone] | claudication, | | | | [phone] | | bilateral legs (HCC) | +--------+ [...] stools Any unusual bleeding Date Last Reviewed: 01/08/201619999896-0803 [employer]. [address] [place] [address]. All righ ts reserved. This information is [...] EXTREMITY | e | 1:56 PM | upper mattaponi arteries of | procedure are in the [...] | | | | 12:05 PM | upper mattaponi arteries of | | | | | [...] | | | femoral artery. A 4 Hungarian vascular sheath was placed. Using a | [...] | | | Over the wires, 4 Hungarian sheaths were exchanged for bilateral 6 | [...] | | | arteriotomy is with 6 Hungarian Angio-Seal devices. Hemostasis | | | wasimmediate. [...] leftcommon femoral artery. A 4 | | Hungarian vascular sheath was placed. Using a catheterand [...] | | abdominalaorta. Over the wires, 4 Hungarian sheaths were exchanged for bilateral 6 | [...] the arteriotomy is with 6 | | Hungarian Angio-Seal devices. Hemostasis wasimmediate.Findings: Ultrasound demonstrate | [...] |closure of the arteriotomy is with 6 Hungarian Angio-Seal devices. Hemostasis was | |immediate. | [...] not | 55 (L)Comment: | >=60 | [place] | | | | GLOMERULAR FILTRATION | mL/min/1.73m2 | [facility] | | | SYRIAN | RATE,ESTIMATED | | MEDICAL | | | | mL/min/1.87q8Aqdi than | | CENTER - | | [...] | | | | | mg/dL | [facility] | | | | | | MEDICAL [...] [address] | [place] | [phone] | | [facility] | | [address] | | | - LABORATORY | | [...] [address] | [place] | [phone] | | [facility] | | [address] | | | - LABORATORY | | [...] [address] | [place] | [phone] | | [facility] | | [address] | | | - LABORATORY | | | | + + + + + documented in this encounter Visit Diagnoses + + | Diagnosis | + + | 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
--- OUTSIDE RECORDS SUMMARY | 2019-04-12 10:00 | XMS ---
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 Magdalena VISIT COUNT (12 MO.) 1 NICKY Neal TOTAL 1 NOTE: Visits indicate total known visits. ED/UCC VISIT TRACKING (12 MO.) 04/12/2019 09:[address] [facility] [place] TYPE: Emergency COMPLAINT: - ABD PAIN INPATIENT VISIT TRACKING (12 MO.) No inpatient visits to display in this time frame [email or web address]
[2019-04-12] MEDS ORDERED: PROTONIX40 MG PO (15:23)
[2019-04-12] MEDS ORDERED: NORCO 5-325 TA1 EACH PO (15:23)
== END 2019-04-12 15:38 | disposition home or self-care (01) ==
LOC: ED 09:57
DX: K80.80 Other cholelithiasis without obstruction (principal); R13.10 Dysphagia, unspecified; Z85.3 Personal history of malignant neoplasm of breast; Z87.891 Personal history of nicotine dependence; Z88.1 Allergy status to other antibiotic agents; Z88.8 Allergy status to other drugs, medicaments and biological substances; Z79.899 Other long term (current) drug therapy
CPT/HCPCS: 74022; 76705; 80053; 81001; 83690; 84484; 85025; 99284-25; J2405

== ENCOUNTER 2019-04-18 08:50 | Day surgery (SDC) | payer MEDICARE ==
[~2019-04-18] VITALS: Ht 157.5 cm; Wt 87.5 kg
[~2019-04-18 08:50] MED LIST changes: +PROTONIX40 MG PO
--- NOTE | 2019-04-18 13:35 | NUR ---
[facility]IVED TO PACU, ORAL AIRWAY IN PLACE, PT UNRESPONSIVE AND BREATHING. SEE VITAL SIGNS. ABD DRESSING ALL CDI, ICE PLACED, SCDS ON AND RUNNING.
--- NOTE | 2019-04-18 14:50 | NUR ---
PATIENT BACK TO FLOOR FROM PACU. PATIENT TOLERATING APPLE SAUCE AND DRINKING WATER, NO COMPLAINTS N/V. RATES PAIN 2/10 ON PAIN SCALE. ANSWERING QUESTIONS, PROVIDED SCRIPT TO DAUGHTER TO FILL. BANDAIDS TO LAP SITES FAINT AMOUNT OF DRAINAGE TO BANDAGE. CALL LIGHT WITHIN REACH. PROVIDED WARM BLANKETS.
--- NOTE | 2019-04-18 15:46 | NUR ---
ASSISTED PATIENT OOB AND TO BATHROOM. GAIT STEADY. VOID WITHOUT DIFFICULTY. GAIT STEADY BACK TO ROOM. PATIENT SITTING UP IN CHAIR IN ROOM PER PT'S REQUEST. CALL LIGHT WITHIN REACH.
--- NOTE | 2019-04-18 16:00 | NUR ---
PATIENT UP AMBULATING IN ROOM. PAIN WELL CONTROLLED, NO N/V. REQUESTING TO GO HOME. DAUGHTER IN ROOM TO PROVIDE RIDE HOME. PATIENT REPORTS PAIN 3/10 DULL ACHE. VOIDING WELL. PROVIDED DISCHARGE EDUCATION, REMOVED IV CATHETER. PATIENT ASKED ABOUT CARE OF SURGICAL SITE, PROVIDED INFORMATION AND DISCUSSED IN DETAIL S/S OF INFECTION AND PAIN CONTROL. PATIENT DEMONSTRATED SPLINTING. ANSWERED ALL QUESTIONS AND CONCERNS. DAUGHTER VERBALIZED UNDERSTANDING.
--- NOTE | 2019-04-18 16:30 | NUR ---
PROVIDED WHEELCHAIR RIDE OUT TO CAR. PATIENT TRANSFERED INTO CAR WELL WITH BELONGINGS. PATIENT'S DAUGHTER FILLED PAIN MEDICATION SCRIPT FOR PATIENT.
--- NOTE | 2019-04-19 06:41 | OR ---
[facility] [address] [place], [place] [address] Signed DATE OF OPERATION: 04/18/2019 SURGEON: Maye Dunlap MD PREOPERATIVE DIAGNOSIS: Ocdyb-rk-uqkoyct cholecystitis and cholelithiasis. POSTOPERATIVE DIAGNOSIS: Yiabt-ik-vimhrnd cholecystitis and cholelithiasis. PROCEDURE: Laparoscopic cholecystectomy with intraoperative cholangiogram. ESTIMATED BLOOD LOSS: None. FINDINGS: The intraoperative cholangiogram was unremarkable. Ricarda clearly had spbak-ma-vkirybk inflammatory changes. She had multiple stones in the gallbladder. INDICATIONS: Ricarda is a 73-year-old obese female, who has a history of peripheral arterial disease. She has been on aspirin and Plavix. She has been having at least two months of epigastric and left upper quadrant abdominal pain. It is worse within 20 to 30 minutes after eating. She has been nauseated and vomiting. She has been anorexic. She has been losing weight. She ended up with normal liver function test, but the white count was borderline at 11. Ultrasound showed multiple mobile stones in the gallbladder. However, one 10 mm stone was lodged in the neck of her gallbladder. The gallbladder wall was borderline thick. The common bile duct was unremarkable. She had been given some oxycodone from the emergency room. She was then asked to see me expeditiously with respect to the above. I met with Ricarda early this week in the office. I gave her a booklet on the gallbladder. She understands the location and function of the gallbladder. She understands laparoscopic versus open cholecystectomy. I did help her with a laparoscopic converted to an open appendectomy many years ago. Consequently, she is familiar with this process. We did review the expected intraoperative and postoperative course. There is risk of surgery including, but not limited to bleeding, infection, scarring, change in contour of the skin, damage to bowel, damage to main bile duct, incisional hernias, and other unforeseen comorbidities. In addition, there is always the possible need for ERCP. She had expressed understanding and wished to proceed. Electronically Signed By: MAYE DUNLAP MD 04/19/19 0641 PATIENT NAME: RICARDA CUELLAR OPERATIVE REPORT DATE OF : 47 REPORT #: [id number] PHYSICIAN: MAYE DUNLAP MD PCP: YOVANY BURNS MD REPORT IS CONFIDENTIAL AND NOT TO BE RELEASED WITHOUT AUTHORIZATION [facility] [address] [place] [address] Signed PROCEDURE NOTE: I met with Ricarda and her daughter in our preop area. We reviewed the above findings. After this, Ricarda was taken into operating room and placed in the supine position under general endotracheal tube anesthesia. She was given preoperative antibiotics along with subcutaneous heparin. SCDs were utilized. She was then prepped and draped in the usual sterile fashion. We utilized her previous supraumbilical transverse incision, carried that into the abdomen without difficulty. She has a previous ventral incisional hernia repair involving mesh. That mesh was just slightly below the area where we were working. We could easily see that with our laparoscope. After this, the remaining trocars were placed under direct visualization in the usual positions without difficulty. The gallbladder was grasped and elevated the right upper quadrant. We took pictures throughout for photodocumentation. The findings were as above. The triangle of Calot was carefully dissected free. We placed 2 clips across the cystic artery and it was divided. There was a posterior branch later in the procedure that we put three sequential clips and we divided that as well. The intraoperative cholangiocatheter was inserted into the cystic duct. The intraoperative cholangiogram was found to be unremarkable. The cystic duct stump was secured with a PDS Endoloop. Two clips were placed across the cystic duct stump to simona its location. The gallbladder was then removed from the gallbladder fossa with the help of the cautery and placed into an EndoCatch bag. The right upper quadrant was irrigated and suctioned out until clear. We used our laparoscopic suturing device to pass 0 Vicryl suture on either side of the fascia of the subxiphoid trocar site. This was tied down to close this fascia primarily. After this, all the gas was allowed to escape and all the trocars were removed along with the gallbladder. The gallbladder was given to our circulating nurse on the back table. A picture was taken for photodocumentation. After this, we closed the fascia of the supraumbilical trocar site with interrupted simple and arntga-jq-arzun 0 Vicryl sutures. Local anesthetic was copiously injected into all trocar sites. Each trocar site was irrigated and suctioned out until clear. The skin and dermis of each trocar site were closed with interrupted 3-0 subcuticular Monocryl sutures. Dry gauze and tape were applied to all incisions. Ricarda was then awakened from her anesthesia, extubated in the OR, and taken to recovery room in stable condition. Maye Dunlap MD ALB/MODL /[id number] Electronically Signed By: MAYE DUNLAP MD 04/19/19 0641 PATIENT NAME: RICARDA CUELLAR OPERATIVE REPORT DATE OF : 47 REPORT #: [id number] PHYSICIAN: MAYE DUNLAP MD PCP: YOVANY BURNS MD REPORT IS CONFIDENTIAL AND NOT TO BE RELEASED WITHOUT AUTHORIZATION [facility] [address] [place], [place] [address] Signed cc: MD Yovany Fernandez MD Patricia J Winn, MD Copies: MAYE DUNLAP MD, JONATHAN MD WINN, PATRICIA J MD ~ Electronically Signed By: MAYE DUNLAP MD 04/19/19 0641 PATIENT NAME: RICARDA CUELLAR OPERATIVE REPORT DATE OF : 47 REPORT #: [id number] PHYSICIAN: MAYE DUNLAP MD PCP: YOVANY BURNS MD REPORT IS CONFIDENTIAL AND NOT TO BE RELEASED WITHOUT AUTHORIZATION
--- NOTE | 2019-04-22 11:58 | PATH ---
[facility] [address] [facility] [place], [place] [address] Signed SPECIMEN(S): A GALLBLADDER AND STONES SPECIMEN SOURCE: A. GALLBLADDER AND STONES CLINICAL HISTORY: Symptomatic cholelithiasis. FINAL PATHOLOGIC DIAGNOSIS: Gallbladder, cholecystectomy: - Acute on chronic cholecystitis. - Cholelithiasis. NAL:emb:C2NR MICROSCOPIC EXAMINATION: Histologic sections of all submitted blocks are examined by light microscopy. These findings, together with the gross examination, support the pathologic diagnosis. GROSS DESCRIPTION: The specimen, labeled "DS, gallbladder with stones on the requisition," is received in formalin and consists of Specimen: Previously opened gallbladder. Dimensions: 9.5 x 6 x 4 cm. Serosa: [place] to montoya and smooth. Cystic Duct: Unobstructed. Calculi: Present, multiple mnotoya smooth multifaceted calculi that vary from 0.5-1.6 cm. Mucosa: Bains and smooth to coarsely granular. Wall thickness: 0.1-0.2 cm. Lymph node: No pericystic lymph nodes are grossly identified. Additional: None. Tank Filler sections are submitted in cassette A1. SS (under the direct supervision of a pathologist) The Gross Description was prepared using a voice recognition system. The report was reviewed for accuracy; however, sound-alike word errors, addition and/or deletions may occur. If there is any question about this report, please contact Client Services. PERFORMING LABORATORY: The technical component was performed by [facility], Arnoldo Whitejames Nathaniel, PATIENT NAME: DANA CUELLAR PATHOLOGY DATE OF : 47 REPORT #: [id number] PHYSICIAN: JUDY FERMIN PCP: YOVANY BURNS MD REPORT IS CONFIDENTIAL AND NOT TO BE RELEASED WITHOUT AUTHORIZATION [facility] [address] [place], [place] [address] [place] [address] (Mechanic Senior: Taniya Gibbs MD; CLIA# [id number]). Professional interpretation was performed by [employer] [facility], [address] [address] (Mechanic Senior: Jonnathan Braswell MD; CLIA# [id number]). Diagnostician: Ariana Fairchild MD Pathologist Electronically Signed 04/22/2019 Copies: ~ PATIENT NAME: DANA CUELLAR PATHOLOGY DATE OF : 47 REPORT #: [id number] PHYSICIAN: JUDY FERMIN PCP: YOVANY BURNS MD REPORT IS CONFIDENTIAL AND NOT TO BE RELEASED WITHOUT AUTHORIZATION
== END 2019-04-18 16:30 | disposition home or self-care (01) ==
LOC: DS 08:50
PROVIDERS: Colon & Rectal Surgery
PROC: BF13YZZ Fluoroscopy of Gallbladder and Bile Ducts using Other Contrast (ICD-10-PCS; 2019-04-18)
PROC: 0FT44ZZ Resection of Gallbladder, Percutaneous Endoscopic Approach (ICD-10-PCS; principal; 2019-04-18 11:45)
DX: K80.12 Calculus of gallbladder with acute and chronic cholecystitis without obstruction (principal); G47.00 Insomnia, unspecified; I10 Essential (primary) hypertension; J44.9 Chronic obstructive pulmonary disease, unspecified; E78.5 Hyperlipidemia, unspecified; E55.9 Vitamin D deficiency, unspecified; E11.9 Type 2 diabetes mellitus without complications; F32.9 Major depressive disorder, single episode, unspecified; F41.9 Anxiety disorder, unspecified; K21.9 Gastro-esophageal reflux disease without esophagitis; M19.90 Unspecified osteoarthritis, unspecified site; Z87.891 Personal history of nicotine dependence; Z95.828 Presence of other vascular implants and grafts; Z79.82 Long term (current) use of aspirin; Z79.899 Other long term (current) drug therapy; Z79.02 Long term (current) use of antithrombotics/antiplatelets; Z88.0 Allergy status to penicillin; Z88.1 Allergy status to other antibiotic agents; Z88.8 Allergy status to other drugs, medicaments and biological substances
CPT/HCPCS: 00790; 74300; 88304; J0690; J1100; J1644; J1885; J2405; J2704; J3010; J7121; Q9967

== ENCOUNTER 2022-11-14 08:56 | Day surgery (SDC) | payer MEDICARE ==
[~2022-11-14] VITALS: Ht 157.5 cm; Wt 85.2 kg
[2022-11-14 09:35] VITALS: BP 183/56
[2022-11-14 10:40] VITALS: BP 164/70
--- NOTE | 2022-11-14 10:41 | NUR ---
1000 DENIES ANY NEEDS. STATES SHE JUST PLAYING ON PHONE. HAS BEEN UPDATED ON WAIT AND WAS IN TO SEE HER.
[2022-11-14 11:44] VITALS: BP 208/69
--- NOTE | 2022-11-14 11:46 | NUR ---
1145 RECD FROM OR. L EYEBROW STERI STRIPS CDI. DENIES ANY N/V LIGHT HEADINESS OR DIZZINESS. RECD LOCAL ONLY. TO BR VOIDS QS. GETTING DRESSED. RATES PAIN 0/10. AAOX3.
--- NOTE | 2022-11-14 12:05 | NUR ---
1200 DECLINED WC WALKED PT TO FRONT LOBBY. STATES SHE GOING TO GIFT SHOP ONLY RECD LOCAL FOR PROCEDURE.
--- NOTE | 2022-11-21 11:46 | OR ---
[facility] [address] [place], [place] [address] Signed DATE OF OPERATION: 11/14/2022 SURGEON: Xavier Byers MD PREOPERATIVE DIAGNOSIS: Left brow lesion. POSTOPERATIVE DIAGNOSIS: Left brow lesion. PROCEDURE: Wide local excision with left brow lesion. ANESTHESIA: Local. PREOPERATIVE HISTORY: Ricarda is a 77-year-old lady with several month history of a pigmented lesion in the left lateral eyebrow. This has been growing and becoming more prominent. She was taken to the operating room for excisional biopsy. OPERATIVE PROCEDURE AND FINDINGS: After informed consent, the patient was taken to the operating room, placed in the semi-sitting position where monitoring was performed. The patient, procedure were verified. The left brow lesion was identified. It was pigmented. Variable pigmentation measuring about 15 mm in greatest diameter, roughly an ovoid just above the left eyebrow laterally. After sterile prep and drape, an elliptical excision was drawn in a transverse direction following skin crease total about 3 cm in length. 1% lidocaine with epinephrine was injected in a field type block. The excision was made with a millimeter to margins around the lesion. The lesion was sent to pathology in formalin with the suture in the superior margin. The wound edges were elevated to allow for tension free closure. Hemostasis was obtained with needle point cautery. The wound was then closed with 4-0 interrupted Vicryl subcu and 5-0 running nylon on the skin. Excellent cosmetic closure was obtained. Hemostasis verified. The skin cleansed. The patient was transported back to same day in good condition. No complications. BLOOD LOSS: Minimal. SPECIMEN: Electronically Signed By: XAVIER BYERS MD 11/21/22 1146 PATIENT NAME: RICARDA CUELLRA OPERATIVE REPORT DATE OF : 47 REPORT #: [id number] PHYSICIAN: XAVIER BYERS MD PCP: FILEMON GREY MD REPORT IS CONFIDENTIAL AND NOT TO BE RELEASED WITHOUT AUTHORIZATION [address] [place], [place] [address] Signed To pathology. DRAINS: None. Xavier Byers MD /MARCELINO /[id number] Copies: ~ Electronically Signed By: XAVIER BYERS MD 11/21/22 1146 PATIENT NAME: RICARDA CUELLAR OPERATIVE REPORT DATE OF : 47 REPORT #: [id number] PHYSICIAN: XAVIER BYERS MD PCP: FILEMON GREY MD REPORT IS CONFIDENTIAL AND NOT TO BE RELEASED WITHOUT AUTHORIZATION
--- NOTE | 2022-11-22 17:18 | PATH ---
[facility] [address] [place], [place] [address] Signed SPECIMEN(S): A LEFT BROW SPECIMEN SOURCE: A. 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 COMMENT: As part of [facility]' Quality Improvement Program, this case was reviewed by another member of our pathology staff. JVR:TEODORO:billier:C1NR MICROSCOPIC EXAMINATION: A Melan-A immunostain is performed with appropriate controls on blocks A1 and A2 and both highlight the melanocytes, supporting the diagnosis. Histologic sections of all submitted blocks are examined by light microscopy. These findings, together with the gross examination, support the pathologic diagnosis. GROSS DESCRIPTION: The specimen, labeled and designated "Karson left brow lesion suture on superior," is received in formalin and consists of an oriented ellipse of gómez-pink skin (1.8 x 1.2 cm and excised to depth of 0.3 cm) with a suture marking superior. A brown-gómez ill-defined hypopigmented area (0.8 x 0.4 cm). The suture is designated 12 o'clock and the specimen is inked as follows: 9 to 12 to 3 o'clock = blue, 3 to 6 to 9 = green. The hyperpigmented area covers the 9 o'clock half of the specimen. The specimen is serially sectioned and submitted entirely. Cassette Summary: (A1) 3 o'clock half (A2) 9 o'clock half AC (under the direct supervision of a pathologist) The Gross Description was prepared using a voice recognition system. The report was reviewed for accuracy; however, sound-alike word errors, addition and/or deletions may occur. If there is any PATIENT NAME: DANA CUELLAR PATHOLOGY DATE OF : 47 REPORT #: [id number] PHYSICIAN: JUDY PATHOLOGY PCP: FILEMON GREY MD REPORT IS CONFIDENTIAL AND NOT TO BE RELEASED WITHOUT AUTHORIZATION [facility] [address] [place], [place] [address] Signed question about this report, please contact Client Services. ADDITIONAL NOTES: Immunohistochemical and/or in situ hybridization studies were performed on this case with the appropriate positive controls that react as expected. This test was developed and its performance characteristics determined by [facility]. It has not been cleared or approved by the U.S. Food and Drug Administration. The FDA has determined that such clearance or approval is not necessary. This test is used for clinical purposes. It should not be regarded as investigational or for research. [facility] is certified under the Clinical Laboratory Improvement Amendments of 1988 (CLIA) as qualified to perform high complexity clinical laboratory testing. This assay has not been validated for specimens that have been decalcified. PERFORMING LABORATORY: Technical component was performed by [facility], [address] [place] [id number] (CLIA# [id number]). Professional interpretation was performed by [facility], [address] [place] [phone] (CLIA#: [id number]). Diagnostician: Hal Muryr MD Pathologist Electronically Signed 11/22/2022 Copies: ~ PATIENT NAME: MIRANDAVICKIEDANA INOCENTE PATHOLOGY DATE OF : 47 REPORT #: [id number] PHYSICIAN: JUDY FERMIN PCP: FILEMON GREY MD REPORT IS CONFIDENTIAL AND NOT TO BE RELEASED WITHOUT AUTHORIZATION
== END 2022-11-14 12:00 | disposition home or self-care (01) ==
LOC: OPS 08:56 → DS 08:56 → OPS 10:30
PROVIDERS: ATTEND Otolaryngology
PROC: 0HB1XZZ Excision of Face Skin, External Approach (ICD-10-PCS; principal; 2022-11-14 10:30)
DX: D03.39 Melanoma in situ of other parts of face (principal)
CPT/HCPCS: 88305; 88342

== ENCOUNTER 2024-10-20 09:21 | Inpatient (IN) | payer MEDICARE ==
[~2024-10-20] VITALS: Ht 157.5 cm; Wt 88.3 kg
[2024-10-20] VITALS (8 sets, daily range): BP systolic 74–113; BP diastolic 44–83
[2024-10-20] MEDS ORDERED: LORazepam 2 MG/ML VIAL IV ONE (09:45)
[2024-10-20] MEDS ORDERED: SODIUM CHLORIDE 0.9% 500 ML IV ONE (09:45)
[2024-10-20 09:58] LABS: MCH 30.4 PG (25.6-32.2); MCHC 32.1 g/dL (32.2-35.5); MCV 94.9 fL (79.4-94.8); RBC 4.93 M/uL (3.93-5.22)
[2024-10-20 10:21] LABS: ALT (SGPT) 52.0 U/L (14-59); AST (SGOT) 59.0 U/L (15-37); GLOMERULAR FILTRATION RATE,EST 24.0 mL/min (>60); PROTEIN, TOTAL 6.8 g/dL (6.4-8.2); UREA NITROGEN 34.0 mg/dL (7-18)
[2024-10-20 10:27] LABS: EOSINOPHILS, MANUAL DIFF 2; LYMPHOCYTES, MANUAL DIFF 28; MONOCYTES, MANUAL DIFF 1; NEUTROPHILS, MANUAL DIFF 69
[2024-10-20] MEDS ORDERED: SODIUM CHLORIDE 0.9% 1,000 ML IV PRN ×3 (11:15→18:00)
[2024-10-20] MEDS ORDERED: AZITHROMYCIN 500 MG in DEXTROSE 5% 250 ML IV ONE (11:30)
[2024-10-20 12:03] LABS: INR 1.26 (0.80-1.30); PROTIME 15.3 Sec (11.2-14.2)
[2024-10-20 12:12] LABS: LACTIC ACID, BLOOD 3.9 mmol/L (0.4-2.0)
[2024-10-20 14:07] LABS: LACTIC ACID, BLOOD 3.8 mmol/L (0.4-2.0)
[2024-10-20 14:56] LABS: BLOOD/HGB, URINE LARGE (Negative); KETONE, URINE NEGATIVE (Negative); LEUK ESTERASE, URINE MODERATE (negative); NITRITE, URINE POSITIVE (negative)
[2024-10-20 15:06] LABS: BACTERIA, URINE 3+ /hpf (negative); CASTS, URINE NONE SEEN \\lpf; CRYSTALS, URINE NONE SEEN (0-1+); EPITHELIAL CELLS, URINE NONE SEEN /lpf (0-1+); REFLEX CULTURE, URINE Yes (No)
[2024-10-20] MEDS ORDERED: LACTATED RINGER'S 1,000 ML IV SCH (19:15)
[2024-10-20] MEDS ORDERED: ACETAMINOPHEN 325 MG TAB PO PRN (19:15)
[2024-10-20] MEDS ORDERED: HYDROCORTISONE 10 MG TAB PO SCH (19:45)
--- NOTE | 2024-10-20 19:55 | NUR ---
patient arrived to CCU room 129 via stretcher with this RN and TACOS goodson. patient transfered to bed via slide sheet. patient states she feels SOB at times and with movement. patient on room air, SPO2 93% patient blood pressure noted to be on the soft end, 101/49 map 63. patient alert and oriented x4, able to follow commands and answer questions appropriately. patient IV sites WNL and saline locked. patient lock cathetor intact, dennis care done. patient denies any pain or nausea at this time. this RN in room to complete admission.
[2024-10-20] MEDS ORDERED: NOREPINEPHRINE BITARTRATE 250 ML IV SCH (20:00)
--- NOTE | 2024-10-20 20:15 | NUR ---
dr gibson at bedside and discussed plan of care for the night.
--- NOTE | 2024-10-20 20:30 | NUR ---
patient provided with sandwich box per request. patient noted to desat to low 80's while eating. patient placed on 3L NC, patient recovers slowly. patient repositioned in bed, warm blankets provided. patient taken off NC and now on room air, SPO2 95%. no further needs at this time. call light in reach.
[2024-10-20] MEDS ORDERED: LIDOCAINE HCL 4% 1 EACH PATCH TD SCH (20:44)
[2024-10-20] MEDS ORDERED: ZOLPIDEM TARTRATE 5 MG TAB PO PRN (20:45)
[2024-10-20 20:51] LABS: LACTIC ACID, BLOOD 3.3 mmol/L (0.4-2.0)
[2024-10-20] MEDS ORDERED: MELATONIN 3 MG TAB PO PRN (21:00)
[2024-10-20] MEDS ORDERED: HYDROCORTISONE SOD SUCCINATE 100 MG/2 ML VIAL IV SCH (21:00)
[2024-10-20] MEDS ORDERED: LIDOCAINE PATCH REMOVAL 1 EA TD SCH (21:00)
[2024-10-20] MEDS ORDERED: HEParin SOD (PORCINE) 5,000 UNIT/ML SDV SUB-Q SCH (21:00)
--- NOTE | 2024-10-20 22:40 | NUR ---
PATIENT REPOSITIONED IN BED. PATIENT BLOOD PRESSURE DIFFICULT TO GET ACCURATE READING. MULTIPLE LOCATIONS AND BLOOD PRESSURE CUFF SIZES TRIED. PATIENT BLOOD PRESSURE REMAINS ON THE SOFT SIDE. PATIENT PLACED ON 2L NC WHILE ASLEEP, SPO2 92%. PATIENT IN NSR, HEART RATE IN THE 90'S. PATIENT HAS CALL LIGHT IN REACH.
--- NOTE | 2024-10-20 23:53 | NUR ---
patient states she can not get comfortable. patient request to sit at edge of bed. patient assisted with repositioning in bed. no further needs at this time. call light in reach, bed alarm on for patient safety.
[2024-10-21] VITALS (40 sets, daily range): BP systolic 83–130; BP diastolic 45–82
--- NOTE | 2024-10-21 00:13 | NUR ---
DR PEREIRA CALLED AND UPDATED ON LACTIC OF 3.7. NEW ORDER RECEIVED TO REDRAW LACTIC WITH MORNING LABS AND CONTINUE TO CLOSELY MONITOR BLOOD PRESSURES.
--- NOTE | 2024-10-21 01:03 | NUR ---
PATIENT CONTINUES TO HAVE LOWER BLOOD PRESSURE READINGS. NOREPINEPHRINE GTT STARTED PER MEDICATION FLOWSHEET IN ORDER TO MAINTAIN MAP >65.
--- NOTE | 2024-10-21 02:00 | NUR ---
PATIENT RESTING WITH EYES CLOSED, RR 22. PATIENT REMAINS ON LEVOPHED GTT PER MEDICATION FLOWSHEET. IV SITE WNL. PATIENT APPEARS TO BE COMFORTABLE, NO SIGNS OF ACUTE DISTRESS. PATIENT HAS CALL LIGHT IN REACH.
--- NOTE | 2024-10-21 03:35 | NUR ---
patient up to chair to "get a break from bed". patient ambulates to chair x1 SBA. patient sits in chair for around fifteen minutes then back to bed. patient repositioned in bed. patient Levophed gtt titrated up per medication flowsheet. patient SOB with movement, SPO2 low 90's. patient on 2L NC, tolerating well. lock care complete. patient has call light in reach.
[2024-10-21 05:42] LABS: MCH 30.7 PG (25.6-32.2); MCHC 32.3 g/dL (32.2-35.5); MCV 94.9 fL (79.4-94.8); RBC 3.55 M/uL (3.93-5.22)
[2024-10-21 05:54] LABS: BANDS, MANUAL DIFF 18; EOSINOPHILS, MANUAL DIFF 1; LYMPHOCYTES, MANUAL DIFF 6; MONOCYTES, MANUAL DIFF 5; NEUTROPHILS, MANUAL DIFF 70
[2024-10-21 05:57] LABS: ALT (SGPT) 125.0 U/L (14-59); AST (SGOT) 160.0 U/L (15-37); GLOMERULAR FILTRATION RATE,EST 20.0 mL/min (>60); PROTEIN, TOTAL 5.3 g/dL (6.4-8.2); UREA NITROGEN 36.0 mg/dL (7-18)
[2024-10-21 06:02] LABS: LACTIC ACID, BLOOD 3.2 mmol/L (0.4-2.0)
--- NOTE | 2024-10-21 06:07 | NUR ---
patient laying awake in bed, remains on room air tolerating well. patient remains on Levophed gtt site WNL. IVF infusing per emar. patient provided with fresh ice water. patient remains in NSR, heart rate 90's. patient has no needs at this time. call light in reach.
--- NOTE | 2024-10-21 06:50 | NUR ---
DR PEREIRA CALLED AND UPDATED ON PATIENT LABS. NO NEW ORDERS AT THIS TIME.
[2024-10-21] MEDS ORDERED: LEVOTHYROXINE SODIUM 75 MCG TAB PO SCH (07:00)
[2024-10-21] MEDS ORDERED: ALBUMIN HUMAN 25% 100 ML BTL IV ONE (08:00)
--- NOTE | 2024-10-21 08:30 | NUR ---
call light answered. pt states concern that she had a bm. pt checked and is clean and dry with no visual evidence of a bm. brief placed. pt repositioned in bed. pt denies further needs at this time. call light in reach
--- NOTE | 2024-10-21 08:46 | NUR ---
DR. PEREIRA IN TO SEE PATIENT AND PLAN OF CARE BEING DISCUSSED. PT TO RECEIVE IV ALBUMIN, IV MAG, AND CONTINUES ON THE LEVOPHED, CURRENTLY AT 2 MCG/MIN. CXR DONE THIS AM. IV ABX SWITCHED TO MEROPENEM FROM ROCEPHIN. PT TO REMAIN IN CCU. WILL CONTINUE TO MONITOR.
--- NOTE | 2024-10-21 08:59 | NUR ---
ALERT AND ORIENTED IN BED. STATES SHE LIVES IN HOUSE WITH STEPS TO GET INSIDE. NORMALLY STEPS ARE NOT AN ISSUE. HOWEVER, SHE IS CURRENTLY NERVOUS ABOUT USING STEPS SHE IS FEELING VERY WEAK. HAS A SHOWER CHAIR, NO OTHER DME. STATES SHE DRIVES AT [place] AND DENIES ANY FINANCIAL CONCERNS. PLANS TO RETURN TO HOME IF WEAKNESS IMPROVES. DEMOGRAPHICS VERIFIED WITH PATIENT. NO KNOWN CM NEEDS AT THIS TIME.
[2024-10-21] MEDS ORDERED: PANTOPRAZOLE SODIUM 40 MG TABEC PO SCH (09:00)
[2024-10-21] MEDS ORDERED: ALBUTEROL SULFATE 0.083% 3 ML VIAL INH PRN (09:00)
[2024-10-21] MEDS ORDERED: MAGNESIUM SULFATE 2 GM/50 ML BAG IV ONE (09:00)
[2024-10-21] MEDS ORDERED: MEROPENEM 1,000 MG in SODIUM CHLORIDE 0.9% 100 ML IV SCH ×2 (09:00→14:00)
[2024-10-21] MEDS ORDERED: AZITHROMYCIN 250 MG TAB PO SCH (09:30)
--- NOTE | 2024-10-21 09:30 | NUR ---
PT REPOSITIONED ONTO L. SIDE. PT STATES NOT FEELING WELL. PT DENIES NEEDS AT THIS TIME. CALL LIGHT IN REACH
--- NOTE | 2024-10-21 10:35 | NUR ---
PT NOT AVAILABLE FOR VISIT. PROVIDED PRAYER.
--- NOTE | 2024-10-21 10:50 | EKG ---
[facility] [address] [place], [place] [address] Signed Normal sinus rhythm Left axis deviation Low voltage QRS Nonspecific T wave abnormality Abnormal ECG When compared with ECG of 17-APR-2019 08:24, Nonspecific T wave abnormality now evident in Anterior leads Confirmed by Jarad Pereira DO ([id number]) on 10/21/2024 10:50:37 AM Electronically Signed By: JARAD PEREIRA DO 10/21/24 1050 PATIENT NAME: MIRANDAVICKIEDANAKENYON BROWER Electrocardiogram DATE OF : 47 PHYSICIAN: JARAD PEREIRA DO REPORT #: [id number] REPORT IS CONFIDENTIAL AND NOT TO BE RELEASED WITHOUT AUTHORIZATION
--- NOTE | 2024-10-21 11:26 | NUR ---
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
[2024-10-21] MEDS ORDERED: PHARMACY RENAL DOSE ADJUSTMENT 1 DOSE MISC PO SCH (12:00)
--- NOTE | 2024-10-21 12:10 | NUR ---
PT RATING PAIN 10/10 IN BACK. PT STATES TAKING 800 MF OF IBUPROFEN 1-2 TIMES A DAY PRN FOR BACK PAIN. PT REFUSES WARM PACK. PT ASKED WHAT SHE THOUGHT MAY HELP WITH HER BACK PAIN AND STATES "NOTHING". SENAIT SESAY NOTIFIED. PAM KUO
[2024-10-21] MEDS ORDERED: HYDROCODONE/ACETA 5/325 TAB PO PRN (12:15)
--- NOTE | 2024-10-21 13:40 | NUR ---
PATIENT HAS BEEN COMPLAINING THAT LEWIS WAS HURTING AND NOTICED THAT IT WASN'T ALWAYS DRAINING WELL. TROUBLE SHOOTING THE LEWIS, IT WAS FLUSHED WITH 10 ML NS THROUGH LUER LOCK AND NO INCREASE IN URINE WAS NOTED. PT THEN BLADDER SCANNED FOR 317 ML AND AGAIN FELT HER BLADDER FEELING FULL AND NEEDING TO VOID. ATTEMPTED TO DEFLATE BALLOON ON LEWIS AND READVANCE CATHETER, BUT FELT RESISTANCE TO THIS. LEWIS WAS THEN D/C AND PT THOUGHT SHE COULD TRY TO VOID. PT UNSUCCESSFUL AT VOIDING BUT DID HAVE A BM. PT REPORTS TO THIS RN THAT SHE FELT SHE WAS DEVELOPED A UTI ABOUT 2 WEEKS AGO WHEN SHE WAS ON VACATION, AND SHE DRANK CRANBERRY JUICE FOR A COUPLE OF DAYS, FELT HER SYMPTOMS WERE RESOLVING, AND THEN DIDN'T NOTICE FEELING ILL UNTIL YESTERDAY WHEN SHE PRESENTED TO THE ER. ALSO OF NOTE, PATIENT'S BLOOD CULTURES THAT WERE DRAWN YESTERDAY AT 1128 AND 1132 HAVE SHOWN GRAM NEGATIVE BACILLI IN ALL BOTTLES. DR. PEREIRA TO BE NOTIFIED OF ALL OF THESE FINDINGS. PATIENT HAS NOW BEEN OFF LEVOPHED SINCE 1105 AND BPs HAVE MAINTAINED ADEQUATE WITH A MAP >65. LAST BP 100/65 (76).
--- NOTE | 2024-10-21 14:03 | NUR ---
PHONE CALL REC'D FROM DR. PEREIRA AND UPDATED HIM ON URINE RETENTION ISSUES. ORDER REC'D TO STRAIGHT CATH PATIENT. PATIENT CURRENTLY ASLEEP AND WILL ALLOW HER TO REST BEFORE DOING THIS. POS BLOOD CULTURES REPORTED TO DR. PEREIRA.
--- NOTE | 2024-10-21 14:48 | NUR ---
US IN ROOM AT THIS TIME.
--- NOTE | 2024-10-21 15:25 | NUR ---
ULTRASOUND COMPLETE. PT THEN UP TO BATHROOM TO TRY AND VOID EVEN WITH LEWIS CATH IN AND SOME URINE LEAKING AROUND CATHETER STILL AND MINIMAL URINE IN LEWIS TUBING. AWAITING U/S REPORT. RN ATTEMPTED TO ADVANCE LEWIS AND PT HAVING EXTREME PAIN WITH MANIPULATING LEWIS CATHETER AT ALL. PT REPORTS HAVING A HISTORY OF "HAVING A SURGERY WITH DR. DOHERTY WHEN THINGS WERE FALLING THROUGH."
[2024-10-21] MEDS ORDERED: LACTATED RINGER'S 1,000 ML IV ONE (16:15)
--- NOTE | 2024-10-21 16:15 | NUR ---
PHONE CALL PLACED TO DR. PEREIRA REGARDING U/S BLADDER/KIDNEY RESULTS AND DISCUSSED WITH HIM. PT'S URINE OUTPUT TODAY THUS FAR HAS ONLY BEEN ABOUT 200 ML. ORDER REC'D TO GIVE 1 L LR BOLUS AND EVALUATE IF THIS HELPED URINE OUTPUT. PT'S LEWIS IS DRAINING SMALL AMOUNTS OF URINE, AND WILL CONTINUE TO MONITOR THIS HOURLY.
--- NOTE | 2024-10-21 16:20 | NUR ---
PT RESTING IN BED, IVF RUNNING. PT PROVIDED WARM BLANKET. DENIES FURTHER NEEDS. CALL LIGHT IN REACH SHIELA OROZCO
[2024-10-21] MEDS ORDERED: PANTOPRAZOLE SO40 MG PO (16:36)
[2024-10-21] MEDS ORDERED: ZOLPIDEM TARTRA10 MG PO (16:37)
[2024-10-21] MEDS ORDERED: BUSPIRONE HCL15 MG PO (16:38)
[2024-10-21] MEDS ORDERED: LEVOTHYROXINE75 MCG PO (16:38)
--- NOTE | 2024-10-21 17:27 | NUR ---
pt assisted up to br due to the feeling the need to void. pt does not appear to have any urine leaking around the lock at this time. pt back to bed. pt sat up at edge of bed and meal tray placed. pt denies needs. call light in reach
--- NOTE | 2024-10-21 18:00 | NUR ---
PT RESTING AT EDGE OF BED. PT ASSISTED BACK TO BED. PT LEWIS DRAINING CLEAR, YELLOW URINE. PT PROVIDED BRIEF FOR COMFORT, PT STATES FEELING OF URGE AND NEED TO TRY AND VOID. LEWIS CHECKED AND IS DRAINING URINE AT THIS TIME WITH NO EVIDENCE OF KINKS. PT EDUCATED ON HOME MEDICATIONS PT WAS REQUESTING PURSE TO TAKE HER OWN HOME MEDS. PT INFORMED HOME MEDS ARE ORDERED AND SHE HAS SOME DUE LATER THIS EVENING. PT VERBALIZES UNDERSTANDING AND DENIES QUESTIONS AT THIS TIME. MEAL TRAY CLEARED. PT OFFERED SNACK BUT DECLINES. PT PROVIDED CALL LIGHT. BED ALARM SET. CALL LIGHT IN REACH
[2024-10-21] MEDS ORDERED: LACTATED RINGER'S 1,000 ML IV SCH (18:30)
--- NOTE | 2024-10-21 19:40 | NUR ---
handoff report received from day shift RN. patient laying awake in bed, no acute distress noted. patient repositioned on to left side. no needs at this time. call light in reach.
[2024-10-21] MEDS ORDERED: LIDOCAINE HCL 4% 1 EACH PATCH TD SCH (21:00)
--- NOTE | 2024-10-21 21:15 | NUR ---
PATIENT STATES SHE FEEL LIKE SHE NEEDS TO HAVE A BM. PATIENT UP TO BATHROOM WITH X1 SBA. PATIENT SOB WITH MOVEMENT. PATIENT UNABLE TO HAVE BM, JUST PASSES GAS. NEW BRIEF PLACED. PATIENT BACK TO BED. REPOSITIONED ONTO LEFT SIDE. NO FURTHER NEEDS AT THIS TIME. CALL LIGHT IN REACH.
--- NOTE | 2024-10-21 22:22 | NUR ---
PATIENT RESTING WITH EYES CLOSED, RR 23. PATIENT ON ROOM AIR, SPO2 91%. PATIENT VITAL SIGNS STABLE. NO NEEDS AT THIS TIME. CALL LIGHT IN REACH.
--- NOTE | 2024-10-21 23:22 | NUR ---
PATIENT UP TO BATHROOM AND BACK TO BED. PATIENT STATES SHE IS HAVING BACK PAIN, PRN PAIN MEDICATION GIVEN PER EMAR. PATIENT IV ABX AND IVF INFUSING PER EMAR. IV SITES WNL. PATIENT LEWIS CATH INTACT, DRAINING CLEAR YELLOW URINE. PATIENT REPOSITIONED IN BED. NO FURTHER NEEDS AT THIS TIME.
[2024-10-22] VITALS (11 sets, daily range): BP systolic 116–159; BP diastolic 48–112
--- NOTE | 2024-10-22 01:30 | NUR ---
bed alarm going off, RN in room. patient attempting to get out of bed. patient reoriented to time and encouraged to get some rest. patient agrees, and back to bed. patient repositioned. no further needs at this time. bed alarm on, call light in reach.
--- NOTE | 2024-10-22 03:05 | NUR ---
patient awake, assisted with standing up. patient states she feels like she needs to stand to go to the bathroom. patient reminded of lock cathetor. patient appears to be slightly confused. patient reoriented. patient back to bed, positioned on left side. no further needs at this time. bed alarm on for patient safety. call light in reach.
--- NOTE | 2024-10-22 05:10 | NUR ---
PATIENT RESTING WITH EYES CLOSED, RR 19. NO SIGNS OF ACUTE DISTRESS. PATIENT VITAL SIGNS STABLE. PATIENT REMAINS ON ROOM AIR, SPO2 IN THE LOW 90'S. PATIENT IVF INFUSING PER EMAR. IV SITES WNL. PATIENT LEWIS CATH INTACT, DRAINING CLEAR YELLOW URINE. PATIENT HAS NOT SLEPT WELL THROUGHOUT THE NIGHT. BED ALARM REMAINS ON, CALL LIGHTIN REACH.
[2024-10-22 05:14] LABS: BASOPHILS 0.4 % (0.1-1.2); EOSINOPHILS 0 % (0.7-5.8); LYMPHOCYTES 5.7 % (19.3-51.7); MCH 30.5 PG (25.6-32.2); MCHC 32.4 g/dL (32.2-35.5); MCV 94.1 fL (79.4-94.8); MONOCYTES 4.3 % (4.7-12.5); NEUTROPHILS 72.5 % (34.0-71.1); RBC 3.38 M/uL (3.93-5.22)
[2024-10-22 05:31] LABS: ALT (SGPT) 437.0 U/L (14-59); AST (SGOT) 462.0 U/L (15-37); GLOMERULAR FILTRATION RATE,EST 19.0 mL/min (>60); PROTEIN, TOTAL 5.5 g/dL (6.4-8.2); UREA NITROGEN 43.0 mg/dL (7-18)
--- NOTE | 2024-10-22 06:40 | NUR ---
DAUGHTER IN TO DROP OFF PATIENT BELONGINGS. PATIENT ASLEEP, BELONGINGS SET AT BEDSIDE.
[2024-10-22] MEDS ORDERED: LIDOCAINE PATCH REMOVAL 1 EA TD SCH (08:00)
[2024-10-22] MEDS ORDERED: LORATADINE 10 MG TAB PO ONE (08:15)
--- NOTE | 2024-10-22 08:27 | NUR ---
PATIENT AWOKE AROUND 0800 AND STATED SHE FELT LIKE SHE SLEPT. SHE IMMEDIATELY ASKED, "DID WE GET MY MEDICATIONS FIGURED OUT? i'D LIKE TO HAVE MY OWN MEDICATIONS RETURNED TO ME IMMEDIATELY AND BE ABLE TO TAKE THEM. THOSE ARE MY MEDS THAT MY DOCTOR OF 17 YEARS HAS PRESCRIBED." DISCUSSED WITH PATIENT POLICY OF HOSPITAL DISPENSING MEDICATIONS. PT REALLY WANTING HER ALLERGY MED. DISCUSSED WITH . CAMERON ORDERED. PATIENT UP TO BATHROOM TO TRY AND HAVE A BM. PT UNSUCCESSFUL. LEWIS DRAINING CLEAR YELLOW URINE. IVF SALINE LOCKED PER MD. PATIENT SITTING IN CHAIR EATING BREAKFAST. PT IS USING CALL LIGHT THIS AM.
[2024-10-22 08:53] LABS: BASOPHILS, MANUAL DIFF 0; EOSINOPHILS, MANUAL DIFF 0; LYMPHOCYTES, MANUAL DIFF 7; MONOCYTES, MANUAL DIFF 2; NEUTROPHILS, MANUAL DIFF 56
[2024-10-22 08:54] LABS: BANDS, MANUAL DIFF 35
[2024-10-22] MEDS ORDERED: CETIRIZINE HCL 10 MG TAB PO SCH (09:00)
--- NOTE | 2024-10-22 09:11 | NUR ---
DR. PEREIRA IN TO SEE PATIENT AND PLAN OF CARE BEING DISCUSSED. PATIENT REMAINS UP IN CHAIR. LEWIS CONTINUES TO DRAIN CLEAR YELLOW URINE IN LEWIS. IVF ARE NOW GOING AT 100 ML/HR. PT WANTING TO TAKE A SHOWER LATER THIS AM AFTER HER ABX IS FINISHED. PT WAS ABLE TO EAT MINIMAL AMOUNTS OF HER FOOD THIS AM. WILL CONTINUE TO MONITOR.
[2024-10-22] MEDS ORDERED: FUROSEMIDE 40 MG/4 ML VIAL IV ONE (10:00)
--- NOTE | 2024-10-22 10:12 | NUR ---
CONTINUES TO PLAN TO GO HOME WHEN MEDICALLY STABLE. NO KNOWN CM NEEDS
--- NOTE | 2024-10-22 10:34 | NUR ---
PT NOT AVAILABLE FOR VISIT. PROVIDED PRAYER.
--- NOTE | 2024-10-22 10:35 | NUR ---
ECHO IN ROOM AT THIS TIME. ABD U/S ALSO COMPLETE. PT'S DAUGHTER DANIELLE HERE AND HER GRANDDAUGHTER BRANDT. DANIELLE GIVEN AN UPDATE BY THIS RN. DANIELLE REQUESTING THAT HER BROTHER AND HER SISTER VIVIANA AND VIV ARE NOT ALLOWED TO COME VISIT.
[2024-10-22] MEDS ORDERED: CLARITIN10 MG PO ×2 (11:07→11:08)
[2024-10-22 11:17] LABS: SODIUM, RANDOM URINE 45.0 mmol/L (NOT ESTABLISHED)
[2024-10-22] MEDS ORDERED: ZOLPIDEM TARTRATE 10 MG TAB PO PRN (11:30)
[2024-10-22] MEDS ORDERED: ZOLPIDEM TARTRATE 5 MG TAB PO PRN (12:45)
--- NOTE | 2024-10-22 12:47 | NUR ---
PATIENT REMAINS SITTING UP IN CHAIR AT THIS TIME AND HAS FINISHED HER LUNCH. PT ONLY ATE ABOUT 20% OF THIS BUT DOES ENDORSE FEELING BETTER OVERALL. LEWIS DRAINING CLEAR YELLOW URINE. PT WANTING TO TAKE A SHOWER TODAY.
--- NOTE | 2024-10-22 16:02 | NUR ---
PATIENT UP TO SHOWER IN ROOM 126 AND ABLE TO WALK FROM 129 TO 126. PT MOSTLY ABLE TO SHOWER HERSELF, WITH MINIMAL HELP WITH HER LEGS AND DRYING OFF. PATIENT THEN HELPED BACK TO BED AND RESTING. SCDs ARE ON. PATIENT REMAINS OFF IVF AND TAKING IN ORAL LIQUIDS WELL. PT NOW PLAYING ON HER IPAD. DR. HOLMANUNG IN TO SEE HER AND PLAN OF CARE DISCUSSED. PT TO BE DOWNGRADED TO MED/SURG.
--- NOTE | 2024-10-22 17:36 | NUR ---
medications reconciled
--- NOTE | 2024-10-22 18:58 | NUR ---
PATIENT UP TO BATHROOM AND BRUSHING HER TEETH. PT WALKING AROUND THE ROOM AND STEADY ON HER FEET. PT NOW BACK INTO CHAIR WITH CALL LIGHT IN REACH.
--- NOTE | 2024-10-22 19:30 | NUR ---
HANDOFF REPORT RECEIVED FROM DAY SHIFT RN. PATIENT SITTING UP IN CHAIR ON IPAD. PATIENT HAS NO NEEDS AT THIS TIME. CALL LIGHT IN REACH.
--- NOTE | 2024-10-22 20:26 | NUR ---
PATIENT USES CALL LIGHT REQUESTING TO GET BACK TO BED. PATIENT ASSISTED BACK TO BED, VITALS TAKEN AND RECORDED. PATIENT REMAINS ON ROOM AIR, TOLERATING WELL. PATIENT IV SITES SALINE LOCKED AND WNL. LEWIS CATH INTACT, DRAINING CLEAR YELLOW URINE. LEWIS CARE DONE. LIGHTS DIMMED PER REQUEST, NO FURTHER NEEDS AT THIS TIME. CALL LIGHT IN REACH.
[2024-10-22] MEDS ORDERED: PANTOPRAZOLE SODIUM 40 MG TABEC PO SCH (21:00)
--- NOTE | 2024-10-22 22:39 | NUR ---
patient resting with eyes closed, RR 24. no signs of acute distress noted. patient bed alarm on, call light in reach.
[2024-10-23] VITALS (7 sets, daily range): BP systolic 119–153; BP diastolic 56–63
--- NOTE | 2024-10-23 00:05 | NUR ---
patient awake, vital signs taken and recorded. patient has no needs at this time. call light in reach.
--- NOTE | 2024-10-23 00:40 | NUR ---
patient uses call light requesting to get up to bathroom. patient assisted with x1 SBA. patient noted to have exertional wheeze. patient back in bed, SCD's placed. patient states 10/10 pain in her hip, PRN pain medication given per emar. patient has no further needs at this time. call light in reach. bed alarm on for patient safety.
--- NOTE | 2024-10-23 03:00 | NUR ---
patient resting with eyes closed, respirations even. no signs of acute distress noted. bed alarm remains on, patient has call light in reach.
[2024-10-23 05:15] LABS: BASOPHILS 0.4 % (0.1-1.2); EOSINOPHILS 1.5 % (0.7-5.8); LYMPHOCYTES 16.6 % (19.3-51.7); MCH 30.5 PG (25.6-32.2); MCHC 32.4 g/dL (32.2-35.5); MCV 94.0 fL (79.4-94.8); MONOCYTES 5.5 % (4.7-12.5); NEUTROPHILS 72.8 % (34.0-71.1); RBC 3.48 M/uL (3.93-5.22)
--- NOTE | 2024-10-23 05:20 | NUR ---
patient up to bathroom. then ambulates back to bed. patients lower extremities noted to be more edematous this AM. patient slept well throughout the night. SCD'S placed back on. vital signs taken and recorded. lights dimmed per request. bed alarm on, call light in reach.
[2024-10-23 05:28] LABS: ALT (SGPT) 564.0 U/L (14-59); AST (SGOT) 318.0 U/L (15-37); GLOMERULAR FILTRATION RATE,EST 22.0 mL/min (>60); PROTEIN, TOTAL 5.6 g/dL (6.4-8.2); UREA NITROGEN 48.0 mg/dL (7-18)
--- NOTE | 2024-10-23 07:20 | NUR ---
RECEIVED REPORT FROM NIGHT RN. PT SLEEPING DURING REPORT. RESPIRATIONS EVEN/UNLABORED, BED ALARM IN PLACE. PT ALLOWED TO REST AT THIS TIME.
--- NOTE | 2024-10-23 07:45 | NUR ---
PT AWAKENS, BED ALARM IN PLACE AND SET OFF PATIENT ATTEMPTING TO GET UP AT THIS TIME. SCDS IN PLACE, REMOVED TO ALLOW PATIENT TO AMBULATE TO THE BATHROOM. UNSTEADY PATIENT STILL WAKING UP, GAINS BALANCE BY THE TIME WALKING BACK TO BED. UTILIZES CALL LIGHT WHEN IN BATHROOM APPROPRIATELY. PT FEEL BLADDER IS FULL BUT IT IS DRAINING, DID HAVE SCANT AMOUNT OF URINE PRESENT IN TOILET. PT DENIES PAIN THIS MORNING, BACK IN BED, PT STATES SHE JUST WANTS TO BE LAZY THIS MORNING. CALL LIGHT WITHIN REACH, WANTS TO REST AT THIS TIME.
[2024-10-23] MEDS ORDERED: LORATADINE 10 MG TAB PO SCH (09:00)
--- NOTE | 2024-10-23 09:16 | NUR ---
UR DISCHARGE REVIEW: CONTINUES WITH NEED FOR IV ANTIBIOTICS AND TRENDING LABS, IV MEDS, BLOOD CULTURES. PLANNING TO DC TO HOME WHEN MEDICALLY READY. WILL NEED FOLLOW-UP WITH OBGYN.
--- NOTE | 2024-10-23 09:31 | NUR ---
PT NOT AVAILABLE FOR VISIT. PROVIDED PRAYER.
--- NOTE | 2024-10-23 09:37 | NUR ---
PT SITTING UP IN THE CHAIR AT THIS TIME, SBA UP TO BATHROOM AND TO CHAIR. PT TOLERATED MEDS WITHOUT ANY ISSUES, TRAY SETUP FOR PATIENT. VS STABLE. PT DOES REPORTS INCREASED SOB/DIFFICULTY BREATHING, LS EXPIRATORY WHEEZES AND CRACKLES VASQUEZ BASES, CURRENTLY ON RA, SATTING IN THE LOW 90'S. PT DOES HAVE SCANT SPUTUM WITH COUGH THIS MORNING, FEELS LIKE SHE IS GETTING SOME STUFF UP. RT CALLED THIS MORNING, REQUESTING PRN INHALER, THEY WILL PROVIDE THAT SHORTLY. 1+ EDEMA TO BLE, PULSES ARE PALPABLE. RC DRAINING YELLOW URINE WITH SOME SEDIMENT. IV ABX INFUSING ORDERED - SEE MAR. PT DENIES PAIN THIS MORNING, FEELS VERY TIRED THIS MORNING. DAUGHTER ARRIVES THIS MORNING, INFORMED MD SHOULD BE ROUNDING SHORTLY. NO CONCERNS FOR ME AT THIS TIME. CALL LIGHT WITHIN PT REACH, ALL PT CARE NEEDS MET AT THIS TIME. DENIES ANY FURTHER NEEDS.
--- NOTE | 2024-10-23 11:05 | NUR ---
FAMILY PRESENT IN ROOM, THEY ARE COMPLETING POA PAPERWORK, WHICH WAS COPIED AND PLACED IN PATIENT CHART FOR REFERENCE. IV ABX STILL INFUSING. MD ARRIVES TO ROOM TO DISCUSS PLAN OF CARE AT THIS TIME. NO QUESTIONS/CONCERNS PER PATIENT/FAMILY.
[2024-10-23] MEDS ORDERED: POLYETHYLENE GLYCOL 3350 1 PACKET PO ONE (11:15)
--- NOTE | 2024-10-23 11:56 | NUR ---
INTO SEE PATIENT. PATIENT STATES SHE IS ABOUT TO SLEEP. LET ME KNOW HER DAUGHTER WILL TAKE HER HOME AT TIME OF DISCHARGE. STATES THEY DO NOT NEED ANYTHING FROM CM. ATTEMPTED TO CALL DAUGTHER TO SEE IF THEY NEEDED ANYTHING NO ANSWER.
--- NOTE | 2024-10-23 12:38 | NUR ---
PT RESTING WITH EYES CLOSED, RESP EVEN/UNLABORED. IV ABX COMPLETE, SALINE LOCKED. PT OFFERED LUNCH BUT DECLINES AT THIS TIME, REQUESTS TO CONTINUE TO NAP. PT LEFT WITH CALL LIGHT WITHIN REACH. BED ALARM REMAINS IN PLACE PT FORGETS TO CALL WHEN GETTING UP INITIALLY.
[2024-10-23] MEDS ORDERED: POLYETHYLENE GLYCOL 3350 1 PACKET ONE (13:18)
[2024-10-23 13:19] LABS: HEPATITIS A ANTIBODY, IGM Negative (Negative); HEPATITIS C AB CIA INTERP Negative (Negative); HEPATITIS C ANTIBODY CIA INDEX 0.02 IV (())
--- NOTE | 2024-10-23 13:27 | NUR ---
PT RESTING, THIS RN INTO ROOM TO WAKE PATIENT FOR THE REST OF AFTERNOON. PT AGREES IF SHE SLEEPS MUCH MORE SHE WILL BE OFF, ASSISTED PT TO BATHROOM SHE C/O STILL FEELING THE URGE TO URINTE DESPITE CATHETER DRAINING. PT NOW SITTING UP IN BED AT THIS TIME READING HER CLEMENT. MIRALAX GIVEN NOW THAT PT IS AWAKE IN CRANBERRY JUICE. ORDERED HER A FRUIT TRAY AND A 1/2 SANDWICH SHE WAS NOT HUNGRY FOR INITIAL MEAL TRAY. CALL LIGHT WITHIN REACH, ALL PT BELONGINGS WITHIN REACH, DENIES ANY OTHER NEEDS AT THIS TIME.
--- NOTE | 2024-10-23 15:38 | NUR ---
PT HAS FAMILY VISITING AT THIS TIME, DENIES ANY NEEDS. CALL LIGHT WITHIN REACH.
--- NOTE | 2024-10-23 16:47 | NUR ---
pt standing by bed, walked to BRP 1PA, no bm, passed flatus. f/c patent draining yellow urine with sediments. Did own pericare, Back to chair, tolerated well. slight sob with eertion noted. In chair, legs elevated, room air. c/o generalized pain, then stated "I will wait a little bit loner for the Glyndon". Pt aware that she can have Glyndon now if she so desires. stated again that she would wait. fresh water given, call light at hands reach
--- NOTE | 2024-10-23 18:44 | NUR ---
PT FAMILY FRIEND JUST LEFT THIS EVENING, PT IS EXTREMELY TIRED, FEELS WEAK IN THE KNEES THIS EVENING. AMBULATED TO THE BATHROOM, BRIEF CHANGED. ORAL CARE DONE BY PT IN BATHROOM. WALKER UTILIZED BACK TO BED FOR SAFETY. PT DENIES NEED FOR PAIN MEDS AT THIS TIME, WOULD LIKE SOMETHING FOR SLEEP/PAIN THIS EVENING WHEN SHE GETS HER LIDOCAINE PATCH SIMILAR TO LASTNIGHT. PT C/O FEELING LIKE LIPS ARE PAINFUL AND FEELS BUMPS PRESENT, PT NORMALLY UTILIZES ABREVA AT HOME, ATTEMPTED TO CALL DAUGHTER TO HAVE HER BRING IN SO SHE COULD UTILIZE THAT WE DO NOT HAVE THAT ON FORMULARY, PHONE LINE WAS BUSY SO WE WILL CONTINUE TO TRY TONIGHT. WARM BLANKETS PROVIDED, I&O'S DOCUMENTED. PT DENIES ANY OTHER NEEDS, FRESH WATER PRESENT AT BEDSIDE. ALARM IN PLACE FOR PATIENT SAFETY. CALL LIGHT WITHIN REACH.
--- NOTE | 2024-10-23 19:35 | NUR ---
PATIENT UP TO BATHROOM WITH FLOAT RN. PATIENT PASSED FLATUS, BUT NO BM. ONE PERSON ASSIST WITH FWW DUE TO GENERALIZED WEAKNESS.
--- NOTE | 2024-10-23 19:45 | NUR ---
PATIENT RESTING IN BED, V/S DONE STABLE AT THIS TIME PATIENT 94% OXYGEN SATURATION ON ROOM AIR, NO DYSPNEA NOTED. PATIENT ASKED AGAIN TO HAVE THIS STAFF CONTACT HER DAUGHTER DANIELLE IN REGARDS TO ABREVA MEDICATIONS FOR HER "COLD SORE" SHE FEELS ARE STARTING TO DEVELOPING ON HER UPPER LIP. AT NURSES STATION HE VERBALIZED OK FOR HER TO USE IF BROUGHT IN. DANIELLE IS CONTACTED AND AGREES TO BRING IN THE MORNING. DANIELLE CALLED PATIENT ON HER CELL PHONE FOR INSTRUCTIONS TO LOCATION IN HOUSE. ASSESSMENT COMPLETE NO NEW CONCERNS FROM SHIFT REPORT.
[2024-10-23] MEDS ORDERED: HEParin SOD (PORCINE) 5,000 UNIT/ML SDV SUB-Q SCH (21:00)
--- NOTE | 2024-10-23 22:08 | NUR ---
PATIENT RESTING QUIELTY IN BED, RESPIRATION RATE 20/MIN. NO DISTRESS NOTED AT THIS TIME. SNORING NOTED
--- NOTE | 2024-10-23 23:15 | NUR ---
PATIENT CALLED NURSES STATION FOR ASSISTANCE TO BATHROOM. THIS RN INTO PATIENT, PATIENT UP WITH FWW TO BATHROOM. PATIENT HAD FLATUS POSITIVE, NO BM. PATIENT BACK TO BED. SHE IS ALERT AND ORIENTED. NO REPORT OF PAIN. SCDS ON, ABX INFUSING. NO NEW CONCERNS AT THIS TIME.
--- NOTE | 2024-10-24 01:01 | NUR ---
PATIENT RESTING IN BED, EYES CLOSED RESPIRATIONS REGULAR AT 20/MIN. SLIGHT SNORING NOTED. NO DISTRESS NOTED.
--- NOTE | 2024-10-24 02:10 | NUR ---
PATIENT SET OFF BED ALARM ATTEMPTING TO GET OUT OF BED. THIS RN INTO ROOM. PATIENT REPORTS SHE FEELS SHE NEEDS TO GO TO BATHROOM TO VOID. PATIENT REMINDED SHE HAS A LEWIS CATHETER SHE SAID, "I KNOW I JUST FEEL LIKE IT HELPS TO EMPTY MY BLADDER TO SIT ON THE TOILET." PATIENT ASSISTED TO BATHROOM, ONE PERSON WITH FWW. PATIENT REPORTS SHE THOUGHT SHE WAS SUPPOSE TO GO TO A [place] AND TOLD HER SISTER TO GET READY TO GO. SHE SAID SHE HOPES SHE DIDNT MESS HER SISTER ALL UP. THIS RN SAID, "NO ONE HAS COME INTO SEE YOU OR CALL YOU SINCE I CAME ON SHIFT AT 7PM, SO I WONDER IF YOU MIGHT HAVE HAD A DREAM." PATIENT SAID, "OH, MAYBE." PATIENT BACK TO BED. NO OTHER NEEDS AT THIS TIME.
[2024-10-24 02:27] LABS: CANCER ANTIGEN 125 7 U/mL (<=38)
[2024-10-24 04:07] VITALS: BP 158/66
--- NOTE | 2024-10-24 04:12 | NUR ---
PATIENT SET OFF BED ALARM SITTING UP TO SIDE OF BED. THIS RN INTO ROOM. PATIENT REPORTS SHE FEELS SHE NEEDS TO SIT ON THE TOILET. FLATUS POSITIVE, NO BM. 1P ASSIST WITH FWW TO AMBULATE. PATIENT THEN BACK TO BED, ASSESSMENT COMPLETE, NO NEW CONCERNS. V/S STABLE. PATIENT DOES NOT VERBALIZE PAIN AT THIS TIME. SCDS ON, PATIENT S/L. CALL LIGHT IN REACH, BED ALARM ON FOR PATIENT SAFETY.
[2024-10-24 05:40] LABS: ALT (SGPT) 339.0 U/L (14-59); AST (SGOT) 114.0 U/L (15-37); GLOMERULAR FILTRATION RATE,EST 36.0 mL/min (>60); PROTEIN, TOTAL 5.3 g/dL (6.4-8.2); UREA NITROGEN 37.0 mg/dL (7-18)
[2024-10-24 06:40] LABS: MCH 30.3 PG (25.6-32.2); MCHC 32.8 g/dL (32.2-35.5); MCV 92.4 fL (79.4-94.8); RBC 3.43 M/uL (3.93-5.22)
--- NOTE | 2024-10-24 06:41 | NUR ---
PATIENT UP TO BATHROOM THEN TO RECLINER. SHE REPORTS PAIN IS TOLERABLE AND DOES NOT NEED ANY MEDICATIONS FOR PAIN AT THIS TIME. PATIENT IS ALERT AND ORIENTED AT THIS TIME.
[2024-10-24 07:19] LABS: BANDS, MANUAL DIFF 1; EOSINOPHILS, MANUAL DIFF 3; LYMPHOCYTES, MANUAL DIFF 19; MONOCYTES, MANUAL DIFF 5; NEUTROPHILS, MANUAL DIFF 72
--- NOTE | 2024-10-24 07:55 | NUR ---
RECEIVD REPORT FROM NIGHT RN - ROBERTO CARLOS. PT SITTING UP IN CHAIR ON INITIAL ROUNDS, REQUESTING TO GO TO BATHROOM, FEELS LIKE SHE MAY NEED TO HAVE BM, PT UNSUCCESSFUL. AMBULATED THE HALLWAY WITH THIS RN, USING FWW. PT MADE LOOP OUTSIDE MED/SURG AND BACK, DENIED BEING SOB, DID C/O RIGHT SIDED PAIN, 09/16, PRN TYLENOL GIVEN - SEE JUN. LEWIS DRAINING YELLOW URINE WITH SOME SCANT BIT OF HEMATURIA IN THE LINE. PT ASSISTED BACK TO BED THIS MORNING, WARM BLANKETS PROVIDED. PRUNE JUICE ORDERED TO HELP WITH BM TODAY, PT PASSING FLATUS. LS WEAR CLEAR/DIMINISHED IN BASES, NO WHEEZING WITH AMBULATION TODAY. SATS REMAIN STABLE ON RA. BED ALARM IN PLACE FOR SAFETY, CALL LIGHT WITHIN REACH. ALL PT CARE NEEDS MET AT THIS TIME.
[2024-10-24 08:34] VITALS: BP 160/69
--- NOTE | 2024-10-24 09:13 | NUR ---
LEWIS CATH REMOVED, 225ML EMPTIED. PT DUE TO VOID AT 1215. PT TOLERATED WELL. FRESH ICE WATER PROVIDED, NO OTHER NEEDS AT THIS TIME. CALL LIGHT WITHIN REACH. BED ALARM IN PLACE PATIENT FORGETFUL, REMINDED TO CALL IF SHE NEEDS TO GET UP TO BATHROOM
--- NOTE | 2024-10-24 09:50 | NUR ---
Spoke with Ricarda and her daughter, Bobbi. Bobbi is the Discharge Planner at [facility]. Pt is wanting to go home today. She denies needs and does not use any DME. She is waiting to speak with Dr. Zaragoza about results for a mass on her ovary. Pt will go home with her daughter. FU appt with made by Susi with Dr. Gross. IM letter completed.
--- NOTE | 2024-10-24 10:33 | NUR ---
PT HAS BEEN UP TO BATHROOM, VOIDED 100ML AT THIS TIME. PT BACK IN BED, BED ALARM IN PLACE. PATIENT IS FORGETFUL TO USE CALL LIGHT AND NEEDS ALARMS IN PLACE FOR SAFETY. DAUGHTER - DANIELLE PRESENT IN ROOM. PT DENIES PAIN AT THIS TIME, STATES THE TYLENOL WAS HELPFUL AND SHE FEELS MUCH BETTER. PT HAS VERY LITTLE APPETITE ONLY HAD ABOUT 15% FOR BREAKFAST, ENSURE WAS GIVEN AND PATIENT HAS NOT HAD ANY OF IT AT THIS TIME. PT CALL LIGHT WITHIN REACH, BED ALARM IN PLACE. DENIES ANY OTHER NEEDS AT THIS TIME.
[2024-10-24] MEDS ORDERED: AMOX TR-K CLV1 EAC1 PO (10:58)
--- NOTE | 2024-10-24 11:53 | NUR ---
PT SITTING UP IN CHAIR, JUST GOT DRESSED, REVIEWED DISCHARGE PAPERWORK. INSTRUCTED ON TAKING ABX TOMORROW MORNING AND COMPLETING FULL COURSE. PT BELONGINGS PACKED UP AND READY, HOME MEDS REMOVED FROM LOCK BOX AND PLACED WITH BELONGINGS. ALL PT CARE NEEDS MET, IVS X2 REMOVED. PT INSTRUCTED TO REMOVE COBAN WHEN SHE GETS HOME. CALL LIGHT WITHIN REACH, WHEELCHAIR PROVIDED AND PATIENT LEAVE SOON
--- NOTE | 2024-10-24 11:53 | NUR ---
VISITED DURING SPIRITUAL CARE ROUNDS. SENAIT RANKIN IN ROOM PREPARING PT FOR DISCHARGE. SEAL MIXER PROVIDED SUPPORTIVE PRESENCE, FACILITATED INTERACTION WITH THERAPY ANIMAL. PT EXPRESSED GRATITUDE.
[2024-10-24 12:03] VITALS: BP 169/57
== END 2024-10-24 12:01 | disposition home or self-care (01) | DRG 871 ==
LOC: ED 09:21 → CCU 19:44
PROVIDERS: Emergency Medicine; Student in an Organized Health Care Education/Training Program; ADMIT Student in an Organized Health Care Education/Training Program; ATTEND Student in an Organized Health Care Education/Training Program
PROC: 0T9B70Z Drainage of Bladder with Drainage Device, Via Natural or Artificial Opening (ICD-10-PCS; principal; 2024-10-20)
PROC: 3E03329 Introduction of Other Anti-infective into Peripheral Vein, Percutaneous Approach (ICD-10-PCS; 2024-10-20)
PROC: 3E033XZ Introduction of Vasopressor into Peripheral Vein, Percutaneous Approach (ICD-10-PCS; 2024-10-20)
PROC: 30233J1 Transfusion of Nonautologous Serum Albumin into Peripheral Vein, Percutaneous Approach (ICD-10-PCS; 2024-10-21)
DX: A41.51 Sepsis due to Escherichia coli [E. coli] (principal); J18.9 Pneumonia, unspecified organism; R65.21 Severe sepsis with septic shock; N17.0 Acute kidney failure with tubular necrosis; N10 Acute pyelonephritis; E87.20 Acidosis, unspecified; Z66 Do not resuscitate; K21.9 Gastro-esophageal reflux disease without esophagitis; J44.9 Chronic obstructive pulmonary disease, unspecified; M51.369 Other intervertebral disc degeneration, lumbar region without mention of lumbar back pain or lower extremity pain; R91.8 Other nonspecific abnormal finding of lung field; N83.201 Unspecified ovarian cyst, right side; F41.1 Generalized anxiety disorder; G47.00 Insomnia, unspecified; D69.6 Thrombocytopenia, unspecified; D64.9 Anemia, unspecified; E03.9 Hypothyroidism, unspecified; R79.89 Other specified abnormal findings of blood chemistry; R74.01 Elevation of levels of liver transaminase levels; F39 Unspecified mood [affective] disorder; K76.0 Fatty (change of) liver, not elsewhere classified; Z79.1 Long term (current) use of non-steroidal anti-inflammatories (NSAID); Z98.890 Other specified postprocedural states; Z85.3 Personal history of malignant neoplasm of breast; Z95.5 Presence of coronary angioplasty implant and graft; Z79.890 Hormone replacement therapy; Z87.891 Personal history of nicotine dependence; Z90.11 Acquired absence of right breast and nipple; Z90.49 Acquired absence of other specified parts of digestive tract; Z88.1 Allergy status to other antibiotic agents; Z88.8 Allergy status to other drugs, medicaments and biological substances; Z79.899 Other long term (current) drug therapy; Z79.51 Long term (current) use of inhaled steroids; Z79.2 Long term (current) use of antibiotics
CPT/HCPCS: 36415; 51702; 51798; 71045; 71260; 74177; 76705; 76770; 80053; 80074; 81001; 82570; 83605; 83690; 83735; 83880; 84300; 84484; 85007; 85025; 85060; 85610; 85730; 86304; 87040; 87088; 93005; 93010; 93306; 94640; 99285-25; A4311; A9270; J0456; J0696; J1644; J1720; J1938; J2060; J2185; J2405; J3475; J7030; J7040; J7060; J7121; P9047; Q9967

== ENCOUNTER 2024-10-29 08:27 | Emergency (ER) | payer MEDICARE ==
[~2024-10-29] VITALS: Ht 157.5 cm; Wt 84.5 kg
[~2024-10-29 08:27] MED LIST changes: +AMOX TR-K CLV1 EAC1 PO; +BUSPIRONE HCL15 MG PO; +CLARITIN10 MG PO; +LEVOTHYROXINE75 MCG PO; +PANTOPRAZOLE SO40 MG PO
[2024-10-29 08:57] LABS: BASOPHILS 0.1 % (0.1-1.2); EOSINOPHILS 0.6 % (0.7-5.8); LYMPHOCYTES 6.2 % (19.3-51.7); MCH 29.7 PG (25.6-32.2); MCHC 32.8 g/dL (32.2-35.5); MCV 90.8 fL (79.4-94.8); MONOCYTES 3.1 % (4.7-12.5); NEUTROPHILS 88.8 % (34.0-71.1); RBC 3.90 M/uL (3.93-5.22)
[2024-10-29] MEDS ORDERED: ALBUTEROL/IPRATROPIUM 3 ML NEB ONE (08:57)
[2024-10-29] MEDS ORDERED: IPRATROPIUM BROMIDE 2.5 ML VIAL INH ONE (09:00)
[2024-10-29] MEDS ORDERED: ALBUTEROL/IPRATROPIUM 3 ML NEB INH ONE ×2 (09:00→09:15)
[2024-10-29 09:17] LABS: ALT (SGPT) 78.0 U/L (14-59); AST (SGOT) 28.0 U/L (15-37); GLOMERULAR FILTRATION RATE,EST 37.0 mL/min (>60); PROTEIN, TOTAL 6.6 g/dL (6.4-8.2); UREA NITROGEN 21.0 mg/dL (7-18)
[2024-10-29] MEDS ORDERED: MORPHINE SULFATE 4 MG/ML VIAL IV ONE (09:30)
[2024-10-29] MEDS ORDERED: AZITHROMYCIN 500 MG in DEXTROSE 5% 250 ML IV ONE (10:30)
[2024-10-29] MEDS ORDERED: AZITHROMYCIN 500 MG VIAL ONE (10:49)
[2024-10-29] MEDS ORDERED: IPRAT-ALBUT 0.5-3 ML INH (11:44)
[2024-10-29] MEDS ORDERED: VENTOLIN HFA18 GM INH (11:44)
[2024-10-29] MEDS ORDERED: PREDNISONE20 MG PO (11:44)
[2024-10-29] MEDS ORDERED: ZITHROMAX250 MG PO (11:44)
[2024-10-29 13:06] VITALS: BP 144/56
--- NOTE | 2024-10-30 20:23 | EKG ---
[facility] [address] [place] [address] Signed Normal sinus rhythm Left axis deviation Low voltage QRS Possible Anterolateral infarct , age undetermined Abnormal ECG When compared with ECG of 20-OCT-2024 09:30, Borderline criteria for Anterior infarct are now present Borderline criteria for Anterolateral infarct are now present Nonspecific T wave abnormality has replaced inverted T waves in Lateral leads Confirmed by Brandyn Villegas MD () on 10/30/2024 8:23:20 PM Electronically Signed By: BRANDYN VILLEGAS MD 10/30/242022 PATIENT NAME: DANA CUELLAR Electrocardiogram DATE OF : 47 PHYSICIAN: BRANDYN VILLEGAS MD REPORT #: [id number] REPORT IS CONFIDENTIAL AND NOT TO BE RELEASED WITHOUT AUTHORIZATION
== END 2024-10-29 13:25 | disposition home or self-care (01) ==
LOC: ED 08:27
PROVIDERS: Emergency Medicine
DX: J44.1 Chronic obstructive pulmonary disease with (acute) exacerbation (principal); Z79.51 Long term (current) use of inhaled steroids; Z79.899 Other long term (current) drug therapy; Z88.1 Allergy status to other antibiotic agents; Z87.891 Personal history of nicotine dependence
CPT/HCPCS: 36415; 71045; 80053; 83605; 83880; 84484; 85025; 85060; 93005; 93010; 94640; 96365; 96367; 96375; 99285-25; J0456; J0696; J2270; J2919; J7060

== ENCOUNTER 2024-11-26 07:39 | Inpatient (IN) | payer MEDICARE ==
[~2024-11-26] VITALS: Ht 157.5 cm; Wt 80.8 kg
[2024-11-26] VITALS (7 sets, daily range): BP systolic 96–181; BP diastolic 48–80
[~2024-11-26 07:39] MED LIST changes: +IPRAT-ALBUT 0.5-3 ML INH; +PREDNISONE20 MG PO; +VENTOLIN HFA18 GM INH; +ZITHROMAX250 MG PO
[2024-11-26 07:57] LABS: BASOPHILS 0.2 % (0.1-1.2); EOSINOPHILS 1.2 % (0.7-5.8); LYMPHOCYTES 13.9 % (19.3-51.7); MCH 29.8 PG (25.6-32.2); MCHC 32.5 g/dL (32.2-35.5); MCV 91.5 fL (79.4-94.8); MONOCYTES 8.6 % (4.7-12.5); NEUTROPHILS 75.5 % (34.0-71.1); RBC 4.60 M/uL (3.93-5.22)
[2024-11-26] MEDS ORDERED: SODIUM CHLORIDE 0.9% 500 ML IV ONE (08:00)
[2024-11-26 08:16] LABS: ALT (SGPT) 22.0 U/L (14-59); AST (SGOT) 15.0 U/L (15-37); GLOMERULAR FILTRATION RATE,EST 32.0 mL/min (>60); PROTEIN, TOTAL 7.2 g/dL (6.4-8.2); UREA NITROGEN 22.0 mg/dL (7-18)
[2024-11-26 08:47] LABS: INFLUENZA B NAA NEGATIVE (NEGATIVE); RESPIRATORY SYNCYTIAL VIR NAA NEGATIVE (NEGATIVE)
[2024-11-26 09:46] LABS: BLOOD/HGB, URINE MODERATE (Negative); KETONE, URINE NEGATIVE (Negative); LEUK ESTERASE, URINE LARGE (negative); NITRITE, URINE POSITIVE (negative)
[2024-11-26 09:52] LABS: CASTS, URINE NONE SEEN \\lpf; CRYSTALS, URINE NONE SEEN (0-1+); EPITHELIAL CELLS, URINE 0 /lpf (0-1+)
[2024-11-26 09:53] LABS: BACTERIA, URINE 1+ /hpf (negative); REFLEX CULTURE, URINE Yes (No)
[2024-11-26 10:01] LABS: LACTIC ACID, BLOOD 3.4 mmol/L (0.4-2.0)
[2024-11-26] MEDS ORDERED: SODIUM CHLORIDE 0.9% 1,000 ML IV PRN (10:30)
[2024-11-26] MEDS ORDERED: ALBUTEROL/IPRATROPIUM 3 ML NEB INH ONE (10:30)
[2024-11-26] MEDS ORDERED: GABAPENTIN100 MG PO (10:33)
[2024-11-26] MEDS ORDERED: PANTOPRAZOLE SODIUM 40 MG TABEC PO SCH (11:05)
[2024-11-26] MEDS ORDERED: ACETAMINOPHEN 325 MG TAB PO PRN ×2 (11:15→16:30)
[2024-11-26] MEDS ORDERED: ZOLPIDEM TARTRATE 5 MG TAB PO PRN (11:15)
[2024-11-26] MEDS ORDERED: VENTOLIN HFA18 GM INH (11:21)
--- NOTE | 2024-11-26 11:33 | NUR ---
UR CLINICAL REVIEW: 2 MN FOR [facility] LEAD MEETS INPT FOR UTI WITH NEED FOR MONITORING, IV ABX AND LAB CULTURES [facility] MCR INPT 11/26/24 @ 1049 ORDER MATCHES REG NO AUTH REQUIRED PER MEDICARE GUIDELINES CLINICALS FAXED TO [facility] FOR REVIEW DISCHARGE TO HOME WITH DAUGHTER WHEN MEDICALLY STABLE
[2024-11-26] MEDS ORDERED: PHARMACY RENAL DOSE ADJUSTMENT 1 DOSE MISC PO SCH (12:00)
--- NOTE | 2024-11-26 12:30 | NUR ---
Received pt report from RN Teri Polo. Pt is resting supine in bed, Aides Sara and Anna are placing a restricted extremity band on pt's right arm at this time. Pt instructed on use of call lights and location of them, and how to turn off and on the television. Pt states that she plans to take a nap and that she is starting to feel warmer (Teri advised that pt felt cold upon arrival to the floor and was given tylenol for a low grade fever). Assessment done at this time. White board updated. Call light in reach.
--- NOTE | 2024-11-26 13:08 | NUR ---
CALL FROM LAB, LACTIC IS 2.4, DOWN FROM 3.4. DR. MUNOZ NOTIFIED. NO FURTHER ORDERS.
--- NOTE | 2024-11-26 13:21 | NUR ---
PATIENT WAS ASSISTED SBA TO BACK TO BED FROM THE CHAIR. PATIENTS VITAL SIGNS AND I&OS WERE DONE. PATIENTS CALL LIGHT IS WITHIN REACH.
--- NOTE | 2024-11-26 14:11 | NUR ---
Advised by OT that the pt is cleared by OT and that she is requesting to have soups for meals. I called dietary and asked them to bring soup for dinner for this patient instead of a regular tray.
--- NOTE | 2024-11-26 14:25 | NUR ---
PATIENT LAYING IN BED. HAT WAS EMPTIED. PATIENTS CALL LIGHT IS WITHIN REACH AND NO FURTHER NEEDS AT THIS TIME.
[2024-11-26] MEDS ORDERED: GABAPENTIN 100 MG CAP PO SCH (15:00)
--- NOTE | 2024-11-26 15:13 | NUR ---
medications reconciled using pharmacy records and patient interview
[2024-11-26] MEDS ORDERED: SODIUM CHLORIDE 0.9% 1,000 ML IV SCH (16:30)
--- NOTE | 2024-11-26 16:52 | NUR ---
At approximately 1545 hours, I was advised by SENAIT Huntley that this pt is c/o feeling cold. She states she gave her some warm blankets. I asked if she had a fever and she said, no. At approximately 1600 hours, I entered the pt's room in response to a call light. Pt states she "feels like shit" and that she is nauseated. Gave the pt an emesis bag and the pt began to wretch and dry heave. She did vomit some. Administered 4mg zofran per emar. Checked pt's temp and obtained a reading of 102.7 oral. Advised pt that I will not cover her with more warm blankets as that may increase her body temp. She stated she understands. Updated Dr. Sin on pt's condition and on her recent temp. He updated orders for her.
--- NOTE | 2024-11-26 18:18 | NUR ---
PATIENT IS SITTING IN THE CHAIR. VITAL SIGNS AND I&OS WERE DONE. PATIENTS CALL LIGHT IN WITHIN REACH AND NO FURTHER NEEDS AT THIS TIME.
--- NOTE | 2024-11-26 18:23 | NUR ---
In with pt to answer questions. She is sitting up in the chair. 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 Pt denies any needs at this time.
--- NOTE | 2024-11-26 19:05 | NUR ---
REPORT RECEIVED FROM MARILEE SAPP. pt RESTING IN THE BED. BOARD UPDATED. pt DENIES ANY OTHER NEEDS AT THIS TIME. CALL LIGHT WITHIN REACH.
--- NOTE | 2024-11-26 20:16 | NUR ---
CALL LIGHT ANSWERED. PT NEEDED TO USE BATHROOM. OFFICE 365 CONSULTANT SBA TO BATHROOM. PT VOIDED AND ASSISTED BACK TO BED. VITALS AND I&O OBTAINED. PT STATES NO FURTHER NEEDS AT THIS TIME. CALL LIGHT WITHIN REACH.
[2024-11-26] MEDS ORDERED: MELATONIN 3 MG TAB PO PRN (21:00)
--- NOTE | 2024-11-26 21:20 | NUR ---
CALL LIGHT ANSWERED, pt READY FOR EVENING MEDS. pt INFORMED THAT MINOO RN IS IN ANOTHER pt ROOM AND PLANS TO SEE HER NEXT, pt VERBALIZED UNDERSTANDING, STATING, "OKAY, I JUST WANTED TO MAKE SURE I WAS STILL GETTING THEM AND NOBODY FORGOT". pt UP SBA TO BATHROOM TO VOID, VOIDED 200 MLS AND BACK IN BED. NO ADDITIONAL NEEDS OR CONCERNS, PRIMARY RN TO GO TO pt ROOM NEXT. CALL LIGHT IN REACH.
[2024-11-26] MEDS ORDERED: FLUTICASONE PROPIONATE 50 MCG BTL NAS PRN (21:45)
--- NOTE | 2024-11-26 21:50 | NUR ---
ASSESSMENT AND VITAL SIGNS DONE. pt RESTING IN THE BED. SCHEDULED MEDS ADMINISTERED. PRN MEDS ADMINISTERED. IV ASSESSED, WNL. IVF INFUSING PER ORDER. pt DENIES ANY OTHER NEEDS AT THIS TIME. CALL LIGHT WITHIN REACH.
--- NOTE | 2024-11-26 23:17 | NUR ---
pt C/O 310 PAIN. PRN PAIN MEDS ADMINISTERED. pt ALSO C/O CHILLS AND SHIVERING AT THIS TIME. IV REDRESSED DUE TO THE DRESSING COMING OFF. pt DENIES ANY OTHER NEEDS AT THIS TIME. CALL LIGHT WITHIN REACH.
[2024-11-27] VITALS (11 sets, daily range): BP systolic 102–153; BP diastolic 43–63
--- NOTE | 2024-11-27 00:30 | NUR ---
INFORMED BY SENAIT BARRY THAT pt HAD REPORTED FALLING. THIS RN IN pt ROOM, TACOS SEO AND PRIMARY RN ROSALBA ALREADY IN ROOM. PRIMARY RN COMPLETING pt ASSESSMENT, DISCHARGE SPECIALIST PATYS MADE AWARE AND TO pt ROOM. pt RESTING IN BED, AWAKE AND ON RA. FACE FLUSHED AND SOMEWHAT DIAPHORETIC. pt VERBALIZING WHAT HAPPENED AFTER THIS RN ASKED HER, STATING, "I WAS TRYING TO GET THE WHITE THING (pt REFERRING TO IV POLE) TO GO TO THE BATHROOM. I DIDN'T WANT TO BOTHER THE NURSES, I KNEW THEY WERE BUSY". pt DENIES LOSS OF CONSCIOUSNESS WHEN ASKED. pt DENIES HITTING HER HEAD. pt A/O. DR VILLEGAS ENTERED ROOM AND COMPLETED pt ASSESSMENT, pt DENIES HITTING HER HEAD TO MD WELL. NO ORDERS FOR IMAGING RECEIVED AT THIS TIME, PER DR VILLEGAS CONTINUE TO MONITOR. SEE NOTE FROM PRIMARY RN FOR ADDITIONAL DETAILS.
--- NOTE | 2024-11-27 00:56 | NUR ---
CALL LIGHT ANSWERED. PT SOUNDED OUT OF BREATH AND STATED SHE NEEDED HELP. LAST WAXER ENTERED ROOM AND PT WAS LYING FACE DOWN ON THE BED WITH FEET OFF THE EDGE OF BED AND IV POLE PULLED AWAY FROM WALL. PT STATED THAT SHE "FELL TRYING TO GET UP TO USE BATHROOM AND HAD CRAWLED BACK INTO BED". SENAIT NAVARRETE CALLED INTO ROOM. PT ASSISTED BACK INTO BED AND LAST WAXER OBTAINED VITALS FOR RN.
--- NOTE | 2024-11-27 01:10 | NUR ---
0020: pt CALLED ON THE CALL LIGHT AND STATED SHE NEEDED HELP. TACOS GABBI WENT IN THE RM. THEN CALL THIS RN IN THE RM. pt FOUND HALF FACE DOWN IN THE BED. pt STATED SHE HAD FALLEN. 0025: pt VS DONE RR ELEVATED AND HR ELEVATED OTHER MANJARREZ STABLE pt FLUSH AND DIAPHORETIC AT THIS TIME BUT pt STATES SHE WAS TRYING TO GET BACK IN THE BED. ASHA RN STARTED NEW IV. ASSESSMENT DONE. pt DENIES HITTING HER HEAD AT THIS TIME. 0045: THIS RN CALLED MD VILLEGAS TO TELL HIM ABOUT pt FALL VS DONE HR AND RR STABELIZING. MD VILLEGAS CAME TO pt RM. NO NEW ORDERS AT THIS TIME. WILL CONTINUE TO MONITOR THIS pt. 0110: THIS RN CALL pt DAUGHTER DANIELLE TO UPDATE HER ABOUT pt FALL. NO QUESTIONS AT THIS TIME.
--- NOTE | 2024-11-27 01:46 | NUR ---
rounded on pt, pt resting in bed with eyes closed. on ra, rr even and unlabored. no distress or outward signs of pain noted. bed alarm on and fall mats in place, call lights and personal belongings in reach. primary rn updated.
--- NOTE | 2024-11-27 03:44 | NUR ---
BED ALARM ANSWERED. PT DANGLING LEGS OVER BED SIDE RAIL STATING THE NEED TO USE BATHROOM. THIS GRAND SCRIBE AND SENAIT BARRY ASSISTED PT TO BATHROOM WITH FWW. PT VOIDED AND ASSISTED BACK TO BED. PT STATES NO FURTHER NEEDS AT THIS TIME. PT REMINDED TO CALL WHEN NEEDING TO GET UP. CALL LIGHT WITHIN REACH AND BED ALARM ON.
[2024-11-27 06:18] LABS: BASOPHILS 0.3 % (0.1-1.2); EOSINOPHILS 0.1 % (0.7-5.8); LYMPHOCYTES 8.6 % (19.3-51.7); MCH 30.0 PG (25.6-32.2); MCHC 32.6 g/dL (32.2-35.5); MCV 92.2 fL (79.4-94.8); MONOCYTES 7.5 % (4.7-12.5); NEUTROPHILS 83.0 % (34.0-71.1); RBC 3.73 M/uL (3.93-5.22)
[2024-11-27 06:29] LABS: GLOMERULAR FILTRATION RATE,EST 29.0 mL/min (>60); UREA NITROGEN 19.0 mg/dL (7-18)
[2024-11-27 06:30] LABS: SMEAR REVIEW BLOOD SEE COMMENTS
--- NOTE | 2024-11-27 06:39 | NUR ---
IN RM TO DO SECOND SKIN ASSESSMENT AND VITAL SIGNS. THIS RN AND DOOR TECHNICIAN SONU DID SECOND SKIN ASSESSMENT. pt NEURO ASSESSMENT WNL. pt SBA TO THE BR. pt DENIES ANY OTHER NEEDS AT THIS TIME. CALL LIGHT WITHIN REACH. WATER REFRESHED.
--- NOTE | 2024-11-27 06:54 | NUR ---
THIS RN CALLED MD VILLEGAS TO UPDATE HIM ON pt ASSESSMENT. pt A&O X4 AT THIS TIME. pt HAS REDDENED AREA ABOVE RIGHT EYEBROW, pt STATES THAT THIS IS NORMAL FOR HER SHE USUAL RUBS OR SCRATCHES HER FACE IN THAT AREA ALL THE TIME. pt DENIES ANY OTHER PAIN AT THIS TIME. CALL LIGHT WITHIN REACH. pt DENIES ANY OTHER NEEDS AT THIS TIME.
--- NOTE | 2024-11-27 07:35 | NUR ---
Pt report received from SENAIT Easton. Pt is resting supine in bed with blankets pulled up underneath her chin. She states she had a "slip" last night. She reports, currently, that she is chilled. White board updated. Pt would like to have a shower today. Side rails up x4, bed alarm on, call light in reach. IVF running at 125ml/hr per emar.
--- NOTE | 2024-11-27 07:40 | NUR ---
PATIENT IN BED AT THIS TIME. WATER POLLUTION CONTROL TECHNICIAN CHARTED HOURLY ROUNDS. CALL LIGHT WITHIN REACH, NO FURTHER NEEDS.
[2024-11-27] MEDS ORDERED: ALBUTEROL SULFATE 0.083% 3 ML VIAL INH PRN (08:00)
--- NOTE | 2024-11-27 08:07 | NUR ---
PATIENT IN CHAIR AT THIS TIME. RETAIL MARKETING SPECIALIST CHARTED HOURLY ROUNDS, RETAIL MARKETING SPECIALIST ASSISTED PATIENT TO BATHROOM AND THEN TO CHAIR. BOTH CNAS CHANGED PATIENTS LINENS. CALL LIGHT WITHIN REACH, NO FURTHER NEEDS.
--- NOTE | 2024-11-27 08:10 | NUR ---
Advised by one of the CNAs that the pt's daughter has questions. When I entered the room and stated that I heard they had questions, the pt was sitting up in the chair, wretching. I turned around and told them I'll get some zofran and be right back. As soon as I exited the room, the pt's daughter said, "yeah, we asked for zofran over 30 minutes ago". This was not brought to my attention and I had not been aware that the pt was nauseated until I had just entered the room to answer questions. I had been in the pt's room 30 minutes prior and she was not nauseated at that time and had denied any needs. Zofran was administered, as well as all other ordered meds per emar, and some tylenol as the pt was "shaking" and stating she was "chilled". Her axillary temp was 98.8 (she had just drank some iced water). Iced water refilled. Breakfast tray placed on bedside table. Pt denies further needs. Daughter remained seated on the couch, cursing at her mother for "blocking important phone numbers" in her personal cell phone. Call light in reach.
[2024-11-27] MEDS ORDERED: ENOXAPARIN SODIUM 30 MG/0.3 ML SYR SUB-Q SCH (09:00)
[2024-11-27] MEDS ORDERED: LEVOTHYROXINE SODIUM 75 MCG TAB PO SCH (09:00)
[2024-11-27] MEDS ORDERED: ENOXAPARIN SODIUM 40 MG/0.4 ML SYR SUB-Q SCH (09:00)
--- NOTE | 2024-11-27 09:27 | NUR ---
PATIENT IN BED AT THIS TIME. TACOS MOTLEY CHARTED VITALS AND I&O'S. CALL LIGHT WITHIN REACH, NO FURTHER NEEDS AT THIS TIME.
--- NOTE | 2024-11-27 09:30 | NUR ---
Advised by grain sacker Lila that the [employer] employee told her that the pt was requesting her nurse. I entered the room and found the pt resting in bed, A&O. She states she just needs the head of her bed lowered. I asked her if she was unable to reach the buttons, to which she stated, "I just need the head of the bed lowered. It feels better when I'm stretched out". Lowered the head of the bed to her requested position of comfort. Pt denies further needs, call light in reach.
--- NOTE | 2024-11-27 09:36 | NUR ---
INTO SEE PATIENT. PERSONAL HEALTH INFORMATION REVIEWED. PATIENT LIVES AT HOME WITH HER DAUGHTER. PATIENT WAS USING A WALKER WHEN SHE LAST DISCHARGED FROM THE HOSPITAL A MONTH AGO BUT IS NOT USING ONE RIGHT NOW. DOES NOT HAVE OXYGEN OR CPAP. PATIENT STILL DRIVES LIKES TO GO TO [facility] FOR EXERCISE. PATIENT DENIES ANY DIFFCULTY PAYING UTLITIES OR OBTAINING FOOD. NO FUTHER CM NEEDS. DAUGHTER TO CRATE BUILDER WHEN MEDICALLY CLEARED.
[2024-11-27] MEDS ORDERED: SIMETHICONE 80 MG CHEW PO PRN (10:30)
--- NOTE | 2024-11-27 11:52 | NUR ---
In with pt in response to call light for request to use the restroom. SBA with line and tube management as pt ambulated to the toilet to void. No c/o increased pain, no dizziness, no lightheadedness. Pt able to use the toilet, wash her hands, and ambulate to the chair, with SBA only and L&T mgmnt. BLE elevated in chair, IVF running per ordered rate on emar. Bedside table, call light and personal belongings placed near patient where she can reach them. She states she no longer has the shakes and is feeling somewhat better. Advised pt that I will bring her another dose of tylenol around 1230 hours (per emar) as it seems to help prevent the chills and prevent her from feeling nauseated because of the chills.
--- NOTE | 2024-11-27 13:41 | NUR ---
PATIENT IN BED AT THIS TIME. THIS BATCH ANALYST CHARTED VITALS AND I&O'S. CALL LIGHT WITHIN REACH, NO FURTHER NEEDS.
--- NOTE | 2024-11-27 14:04 | NUR ---
PATIENT IN BED AT THIS TIME. PATIENT STATED THAT SHE WANTED A SHOWER AT 1530. CALL LIGHT WITHIN REACH, NO FURTHER NEEDS.
--- NOTE | 2024-11-27 14:49 | NUR ---
PATIENT IN CHAIR AT THIS TIME. IMPORT DISPATCHER SET PATIENT UP FOR SHOWER, PATIENT ABLE TO INDEPENDENTLY WASH, IMPORT DISPATCHER IN ROOM WHILE PATIENT SHOWERED. CALL LIGHT WITHIN REACH, NO FURTHER NEEDS AT THIS TIME.
--- NOTE | 2024-11-27 15:31 | NUR ---
1500 MEDS GIVEN - SEE MAR. PT UP IN THE CHAIR, FAMILY ARRIVED TO VISIT. ALL PT CARE NEEDS MET, CALL LIGHT WITHIN REACH.
--- NOTE | 2024-11-27 16:00 | NUR ---
In with pt to restart her IVF after she took a shower, then had a visit from her 2 week old granddaughter. Pt plans on napping until dinner time. Call light in reach.
--- NOTE | 2024-11-27 17:03 | NUR ---
In with pt for IV assessment, pt states she thinks it is leaking. Upon assessment, noted the IV Site is 'puffed up' and leaking around the opening. Pt's hand and the dressing is wet as well. IVF stopped at this time. Removed dressing and IV catheter (intact), pressure dressing applied. Attempted to locate another IV site but the pt is restricted to her left extremity only (hx of mastectomy to right side). PC to stock preparation supervisor to request US guided IV be started. He advised that he will get someone here when available.
--- NOTE | 2024-11-27 18:24 | NUR ---
Gómez Mcgregor advised she would speak with the household appliances salesperson about this pt's IV status and get back to us. Dr. Sin advised that we need to follow policy regarding starting IVs (or not) on restricted extremities. Olivier states, "when the patient is undergoing treatment for or has had surgery for breast cancer, the affected side should be avoided.". Pt at the time of this writing, still does not have an IV site reestablished.
--- NOTE | 2024-11-27 18:32 | NUR ---
PATIENT IN BED AT THIS TIME. OPERATIONS SUPERVISOR CHARTED VITALS AND I&O'S. PATIENT DID ORAL CARE INDEPENDENTLY. CALL LIGHT WITHIN REACH, NO FURTHER NEEDS.
--- NOTE | 2024-11-27 19:05 | NUR ---
REPORT RECEIVED FROM MARILEE SAPP. pt RESTING IN THE BED. IV ASSESSED, WNL. IVF INFUSING PER ORDER. BOARD UPDATED. pt DENIES ANY OTHER NEEDS AT THIS TIME. CALL LIGHT WITHIN REACH.
[2024-11-27] MEDS ORDERED: ARFORMOTEROL TARTRATE 15 MCG/2 ML VIAL INH SCH (20:00)
--- NOTE | 2024-11-27 21:40 | NUR ---
ASSESSMENT AND VITAL SIGNS DONE. pt UP TO THE BR. SBA FOR LINE/TUBE MANAGEMENT. IV ASSESSED, WNL. SCHEDULED AND PRN MEDS ADMINISTERED. WATER REFRESHED. NEW BAG OF IVF INFUSING PER ORDER. pt DENIES ANY OTHER NEEDS AT THIS TIME. CALL LIGHT WITHIN REACH.
--- NOTE | 2024-11-27 23:33 | NUR ---
pt needed to use the toilet - she was very off balance - she almost fell twice. pt back to bed, call light within reach and bed alarm on.
[2024-11-28] VITALS (9 sets, daily range): BP systolic 133–169; BP diastolic 51–62
--- NOTE | 2024-11-28 01:38 | NUR ---
IN RM TO CHECK ON pt. pt STATES SHE HAS TO USE THE BR. THIS RN ASSISTED pt TO THE BR. SBA. pt BACK TO BED. pt WAS CONFUSED AND STATED HOW DID YOU KNOW I HAD TO GO THE BATHROOM. THIS RN STATED I WAS JUST CHECKING ON YOU. pt EDUCATED AGAIN ON HOW TO USE THE CALL LIGHT WHEN SHE NEEDS ASSISTANCE AND NOT TO GET UP WITH OUT ANY STAFF IN THE RM. WATER REFRESHED. pt DENIES ANY OTHER NEEDS AT THIS TIME. CALL LIGHT WITHIN REACH.
--- NOTE | 2024-11-28 03:08 | NUR ---
pt RESTING IN THE BED WITH EYES CLOSED. RR EVEN UNLABORED. CALL LIGHT WITHIN REACH.
--- NOTE | 2024-11-28 05:14 | NUR ---
PATIENT LAYING IN BED. VITAL SIGNS AND I&OS WERE DONE. PATIENTS CALL LIGHT IS WITHIN REACH AND NO FURTHER NEEDS AT THIS TIME.
[2024-11-28 05:34] LABS: BASOPHILS 0.2 % (0.1-1.2); EOSINOPHILS 2.1 % (0.7-5.8); LYMPHOCYTES 12.0 % (19.3-51.7); MCH 30.1 PG (25.6-32.2); MCHC 32.8 g/dL (32.2-35.5); MCV 91.8 fL (79.4-94.8); MONOCYTES 6.6 % (4.7-12.5); NEUTROPHILS 78.4 % (34.0-71.1); RBC 3.42 M/uL (3.93-5.22)
--- NOTE | 2024-11-28 05:41 | NUR ---
bed alarm going off, this rn to room. pt resting on edge of bed, states, "i know i'm just waiting for you". pt up sba with fww. pt voided unmeasured small void and back in bed. bed alarm on and call light in reach.
[2024-11-28 05:52] LABS: GLOMERULAR FILTRATION RATE,EST 42.0 mL/min (>60); UREA NITROGEN 14.0 mg/dL (7-18)
--- NOTE | 2024-11-28 07:08 | NUR ---
Pt report received from SENAIT Wang. Pt is resting in bed, eyes closed initially, breathing is regular, even, and non-labored. Call light in reach, white board updated. When I finished updating the white board the pt was awake. She denies needs at this time and states she slept well and feels "lazy" today.
--- NOTE | 2024-11-28 08:30 | NUR ---
PATIENT IN CHAIR AT THIS TIME. CROP OR GRAIN FARMER CHARTED HOURLY ROUND, CROP OR GRAIN FARMER ASSISTED PATIENT TO CHAIR. CALL LIGHT WITHIN REACH, NO FURTHER NEEDS.
--- NOTE | 2024-11-28 08:30 | NUR ---
INTO SEE PATIENT. PATIENT AMBULATING TO THE RESTROOM. PATIENT PLANS TO GO HOME WITH DAUGHTER WHEN MEDICALLY CLEARED. IMM LETTER SIGNED AT 09:25 AM. NO FUTHER CM NEEDS.
--- NOTE | 2024-11-28 08:50 | NUR ---
PATIENT IN BED AT THIS TIME. LABORATORY GENETICIST CHANGED PATIENTS LINENS. CALL LIGHT WITHIN REACH, NO FURTHER NEEDS.
[2024-11-28] MEDS ORDERED: ENOXAPARIN SODIUM 40 MG/0.4 ML SYR SUB-Q SCH (09:00)
[2024-11-28] MEDS ORDERED: POLYETHYLENE GLYCOL 3350 1 PACKET PO SCH (10:10)
[2024-11-28] MEDS ORDERED: SENNOSIDES/DOCUSATE 1 EA TAB PO SCH (10:11)
--- NOTE | 2024-11-28 10:25 | NUR ---
DISCHARGE REVIEW: IV FLUIDS, PENDING BLOOD AND URINE CULTURES, IV ANTIBIOTICS, PRN ANTIEMETICS FOR NAUSEA. PLANS TO DC TO HOME WITH FAMILY WHEN MEDICALLY READY ADD: 11/29-11/30/2024
--- NOTE | 2024-11-28 11:03 | NUR ---
While in with pt for med administration (senokot and miralax), pt advised she needs to use the bathroom. SBA with line and tube management while pt ambulated safely into bathroom to toilet. Emptied urine collection hat of 250ml clear yellow urine while pt washed her hands. SBA with L&TM as she ambulated back to the bed. Bed alarm on. Side rails up x3, call light in reach.
--- NOTE | 2024-11-28 11:24 | NUR ---
VISITED DURING SPIRITUAL CARE ROUNDS. PT APPEARED TO BE SLEEPING. DID NOT DISTURB. PROVIDED PRAYER.
--- NOTE | 2024-11-28 12:45 | NUR ---
In with pt in response to call light. Pt is sitting up in the chair, lunch tray on bedside table. Pt states the chair is causing her back to hurt too much and she would like to get back into bed after she uses the toilet. SBA with L&TM as pt ambulates into bathroom to toilet, then washed her hands, then brushed her hair and puts it up into a pony tail, then she brushed her teeth, then ambulates back to bed. Iced water refreshed. IVF running at ordered rate, IV site intact, no leaking/swelling/redness noted, pt has no c/o pain at the site. Side rails up, call light in reach, TV on, bedside tables and personal belongings in reach.
--- NOTE | 2024-11-28 15:57 | NUR ---
AFTER PATIENT'S AFTERNOON VITALS WERE DONE. PATIENT NEEDED TO USE THE BATHROOM. WHILE PATIENT WAS USING HER WALKER I WAS FOLLOWING HER WITH IV. AFTER SHE WAS DONE AND SHE WASHED HER HANDS I FOLLOWED HER BACK WITH HER IV AND SHE GOT BACK IN BED TURNED THE BED ALARM ON. PLUGGED HER IV BACK IN.
--- NOTE | 2024-11-28 16:25 | NUR ---
REPORT RECEIVED FROM SENAIT HUNT. PATIENT IS SITTING IN THE CHAIR WITH EYES OPEN AND RESPIRATIONS ARE EVEN AND UNLABORED. SENAIT BENDER ASSISTED PATIENT TO THE BATHROOM. PATIENT STATED NO FURTHER NEEDS AT THIS TIME. CALL LIGHT AND PERSONAL BELONGINGS ARE WITHIN REACH.
--- NOTE | 2024-11-28 16:50 | NUR ---
IN TO MEET PT WITH SENAIT DALE AFTER REPORT GIVEN BY SENAIT HUNT. PT SITTING UP IN CHAIR, CHAIR ALARM ON. PT REPORTED NEEDING THE BATHROOM. ASSISTED PT UP AND OUT OF CHAIR WITH IV POLE TO THE BATHROOM. PT VOIDED 200 ML OF YELLOW URINE. ASSISTED PT BACK TO CHAIR. LEGS ELEVATED AND CHAIR ALARM ON. CALL LIGHT AND PERSONAL BELONGINGS WITHIN REACH, PT VERBALIZES NO FURTHER NEEDS AT THIS TIME.
--- NOTE | 2024-11-28 18:00 | NUR ---
PATIENT'S CALL LIGHT WENT OFF SO I WENT STRAIGHT TO HER ROOM. PATIENT WAS SITTING UP IN HER CHAIR JUST FINISHED DINNER SHE WANTED TO GO BACK TO BED BUT BEFORE SHE WENT TO BED SHE USED THE BATHROOM. SHE WASHED HER HANDS AND BRUSHED HER TEETH THAN WE WALKED BACK TO HER BED. BED ALARM ON.
--- NOTE | 2024-11-28 18:07 | NUR ---
PATIENT IS LYING IN BED WITH HOB ELEVATED AND STATED "FINALLY GOING TO GET WARM". TACOS CRUZ IS IN THE ROOM AT THIS TIME. PATIENT STATED NO FURTHER NEEDS. CALL LIGHT AND PERSONAL BELONGINGS ARE WITHIN REACH.
--- NOTE | 2024-11-28 19:05 | NUR ---
REPORT RECEIVED FROM SUYAPA SAPP. pt RESTING IN THE BED. BOARD UPDATED. pt DENIES ANY OTHER NEEDS AT THIS TIME. CALL LIGHT WITHIN REACH.
--- NOTE | 2024-11-28 20:15 | NUR ---
ASSESSMENT AND VITAL SIGNS DONE. pt UP TO THE BR, SBA. pt BACK TO THE BED. IV ASSESSED, WNL. SCHEDULED AND PRN PAIN MEDS ADMINISTERED. BED ALARM ON. pt DENIES ANY OTHER NEEDS AT THIS TIME. CALL LIGHT WITHIN REACH.
--- NOTE | 2024-11-28 21:42 | NUR ---
PATIENT UP TO BATHROOM WITH SBA AND WALKER. PATIENT VOIDED 100ML. PATIENT BACK IN BED, IV FLUIDS RUNNING. BED ALARM ON. FRESH WATER GIVEN.
--- NOTE | 2024-11-28 22:49 | NUR ---
CALL LIGHT ANSWERED. PT NEEDED TO BATHROOM. INSURANCE ACTUARY 1PA WITH FWW TO BATHROOM. PT VOIDED AND ASSISTED BACK TO BED. PT STATES NO FURTHER NEEDS AT THIS TIME. CALL LIGHT WITHIN REACH AND BED ALARM ON.
--- NOTE | 2024-11-29 00:50 | NUR ---
pt RESTING IN THE BED WITH EYES CLOSED. RR EVEN AND UNLABORED. CALL LIGHT WITHIN REACH.
--- NOTE | 2024-11-29 02:07 | NUR ---
BED ALARM ANSWERED. PT NEEDED TO USE BATHROOM. GUNSTOCK SPRAY UNIT FEEDER 1PA WITH FWW TO BATHROOM. PT VOIDED AND ASSISTED BACK TO BED. PT STATES NO FURTHER NEEDS AT THIS TIME. CALL LIGHT WITHIN REACH AND BED ALARM ON.
--- NOTE | 2024-11-29 03:37 | NUR ---
CALL LIGHT ANSWERED. PT HAD SPILLED HER JUICE. ARCHITECTURE INTERN ASSISTED PT INTO NEW GOWN AND CHUCKS PAD CHANGED. PT UP TO BATHROOM TO VOID. PT ASSISTED BACK TO BED. PT STATES NO FURTHER NEEDS AT THIS TIME. CALL LIGHT WITHIN REACH AND BED ALARM ON.
--- NOTE | 2024-11-29 03:57 | NUR ---
pt RESTING IN THE BED. pt DENIES ANY OTHER NEEDS AT THIS TIME. CALL LIGHT WITHIN REACH.
[2024-11-29 05:06] VITALS: BP 168/57
--- NOTE | 2024-11-29 05:20 | NUR ---
pt RESTING IN THE BED. ASSESSMENT AND VITAL SIGNS DONE. pt DENIES ANY OTHER NEEDS ANY OTHER NEEDS AT THIS TIME. CALL LIGHT WITHIN REACH.
--- NOTE | 2024-11-29 05:31 | NUR ---
CALL LIGHT ANSWERED. PT NEEDED TO USE BATHROOM. ORGANISATION AND METHODS ANALYST 1PA WITH FWW TO BATHROOM. PT VOIDED AND ASSISTED BACK TO BED. PT STATES NO FURTHER NEEDS AT THIS TIME. CALL LIGHT WITHIN REACH AND BED ALARM ON.
[2024-11-29 05:55] LABS: BASOPHILS 0.3 % (0.1-1.2); EOSINOPHILS 5.0 % (0.7-5.8); LYMPHOCYTES 17.1 % (19.3-51.7); MCH 30.2 PG (25.6-32.2); MCHC 32.8 g/dL (32.2-35.5); MCV 92.1 fL (79.4-94.8); MONOCYTES 6.8 % (4.7-12.5); NEUTROPHILS 69.9 % (34.0-71.1); RBC 3.15 M/uL (3.93-5.22)
[2024-11-29 06:11] LABS: GLOMERULAR FILTRATION RATE,EST 51.0 mL/min (>60); UREA NITROGEN 10.0 mg/dL (7-18)
--- NOTE | 2024-11-29 07:25 | NUR ---
PT WALKED TO THE TOILET, URINATED, PERFORMED AM CARE AND ORAL CARE THEN WALKED TO THE CHAIR FOR BREAKFAST. LINEN CHANGED ON BED AND PT HAS FRESH WATER AND THE CALL LIGHT WITHIN REACH. PT WATCHING TV SITTING UP IN THE CHAIR. PT REPORTS NEEDING NOTHING MORE AT THIS TIME.
[2024-11-29 09:24] VITALS: BP 158/65
[2024-11-29 09:30] VITALS: BP 158/65
--- NOTE | 2024-11-29 09:30 | NUR ---
PT RESTING IN BED, TV ON. PT HAS FRESH ICE WATER AND A CLEAN ROOM, CALL LIGHT WITHIN REACH AND PT REPORTED NEEDING OTHING MORE AT THIS TIME.
--- NOTE | 2024-11-29 12:08 | NUR ---
Patient awake, alert and oriented x3, no acute distress. Patient assisted to restroom then to chair using fww/sba. Patient reports she is ready to discharge home as she feels "Well". Patient denies urinary discomfort. Chair alarm intact.
[2024-11-29 13:20] VITALS: BP 159/60
--- NOTE | 2024-11-29 13:25 | NUR ---
PT IN CHAIR WATCHING TV. PT STOOD FOR A LITTLE WHILE, SHE ASKED. PT REPORTED NO DIZZINESS OR PAIN WHEN STANDING. CHAIR ALARM WAS ON, AND CALL LIGHT IS WITHIN REACH.
--- NOTE | 2024-11-29 13:43 | NUR ---
PT SHOWERED AFTER USING THE TOILET. PT REPORTED NO DIZZINESS WHILE WALKING, ALSO NO PAIN WITH AMBULATION. ONCE REDRESSED PT RETURNED TO THE CHAIR, CHAIR ALARM ON AND CALL LIGHT WITHIN REACH. PT NEEDING NOTHING MORE AT THIS TIME.
--- NOTE | 2024-11-29 14:55 | NUR ---
PT UP AMBULATING IN ABEBE WITH FWW AND SBA. PT TOLERATED WELL. PT ASSISTED BACK TO BED WITH CALL LIGHT WITHIN REACH.
[2024-11-29 15:18] VITALS: BP 159/60
--- NOTE | 2024-11-29 15:27 | NUR ---
GOT REPORT FROM DAY SHIFT NURSE.
--- NOTE | 2024-11-29 15:58 | NUR ---
IN ROOM WITH DOCTOR AND PATIENT. WE WILL GIVE ORAL CIPRO AND SEE HOW PATIENT TOLERATES IT. PT UNAWARE OF REACTION BEFORE OR IF SHE HAD ONE. IF TOLERATES PATIENT CAN GO HOME. PATIENT AGREES TO TAKE MEDICATION. PATIENT HELPED TO RESTROOM AND THEN TO CHAIR. IV FLUIDS RUNNING. FAMILY ON WAY. WARM BLANKET AND FRESH WATER GIVEN WITH CRACKERS WITH MEDICATION.
[2024-11-29] MEDS ORDERED: CIPROFLOXACIN 250 MG TAB PO ONE (16:00)
[2024-11-29] MEDS ORDERED: CEFDINIR300 MG PO (16:28)
[2024-11-29] MEDS ORDERED: CIPROFLOXACIN750 MG PO (16:29)
--- NOTE | 2024-11-29 16:32 | NUR ---
Patient has been checked on every 5 minutes since medication given. No complications at this time. advised.
== END 2024-11-29 17:15 | disposition home or self-care (01) | DRG 872 ==
LOC: ED 07:39 → MS 10:51
PROVIDERS: Emergency Medicine; ADMIT Student in an Organized Health Care Education/Training Program; ATTEND Student in an Organized Health Care Education/Training Program
DX: A41.51 Sepsis due to Escherichia coli [E. coli] (principal); N17.9 Acute kidney failure, unspecified; N12 Tubulo-interstitial nephritis, not specified as acute or chronic; A41.52 Sepsis due to Pseudomonas; K21.9 Gastro-esophageal reflux disease without esophagitis; G47.00 Insomnia, unspecified; E03.9 Hypothyroidism, unspecified; Z66 Do not resuscitate; R91.8 Other nonspecific abnormal finding of lung field; N83.209 Unspecified ovarian cyst, unspecified side; G89.29 Other chronic pain; J44.9 Chronic obstructive pulmonary disease, unspecified; F41.9 Anxiety disorder, unspecified; S00.11XA Contusion of right eyelid and periocular area, initial encounter; M25.521 Pain in right elbow; M25.522 Pain in left elbow; Z87.891 Personal history of nicotine dependence; Z79.899 Other long term (current) drug therapy; Z88.1 Allergy status to other antibiotic agents; Z79.52 Long term (current) use of systemic steroids; Z79.890 Hormone replacement therapy; Z87.442 Personal history of urinary calculi; Z85.3 Personal history of malignant neoplasm of breast; Z90.11 Acquired absence of right breast and nipple; W18.30XA Fall on same level, unspecified, initial encounter
CPT/HCPCS: 36415; 51701; 71045; 80048; 80053; 81001; 83605; 83735; 85025; 85060; 87040; 87088; 87502; 94640; 94667; 94668; 94760; 94799; 99285-25; A9270; J0696; J1650; J2405; J7030; J7040; J7605; U0002